=== PATIENT | male | born 1950 | race Caucasian/White ===

== ENCOUNTER → 2018-03-21 13:28 | Outpatient (CLI) | payer MEDICARE, SELFPAY ==
[2018-03-21 15:56] LABS: Absolute Lymphocyte Count 0.84 X10^3/ul (0.83-4.51); Absolute Neutrophil Count 3.1 X10^3/uL (2.0-7.7); Basophil# 0.02 X10^3/uL; Basophil% 0.4 % (0-1); Eosinophils% 2.2 % (0-5); Hematocrit 43.4 % (40-54); Hemoglobin 14.3 g/dl (13.0-16.5); Lymphocyte # 0.84 X10^3/ul (4.0); Lymphocyte % 18.3 % (19-41); Mean Corp Hgb Conc 32.9 g/gl (32-36); Mean Corpuscular Hgb 31.2 pg (27.0-32.0); Mean Corpuscular Volume 94.6 fL (80-94); Monocyte# 0.51 X10^3/uL; Monocyte% 11.1 % (0-10); Neutrophil # 3.11 X10^3/uL (2.7-7.7); Neutrophil % 67.8 % (47-70); Platelet Count 253 K/mm3 (150-450); RBC Distribution Width SD 44.9 fl (35.1-43.9); Red Blood Count 4.59 M/mm3 (4.6-6.2); White Blood Count 4.6 K/mm3 (4.4-11.0)
[2018-03-21 16:01] LABS: POSITIVE COUNT NO; POSITIVE DIFFERENTIAL NO; POSITIVE MORPHOLOGY NO
[2018-03-21 16:15] LABS: AST(SGOT) 27 U/L (15-37); Alanine Aminotransfer ALT/SGPT 29 U/L (16-61); Albumin, Serum 3.7 g/dL (3.2-5.0); Alkaline Phosphatase 78 U/L (45-117); Bilirubin, Direct 0.12 mg/dL (0.00-0.30); Protein, Total 7.7 g/dL (6.4-8.2)
[2018-03-21 16:58] LABS: HIV - WCH Non-Reactive (Nonreactive)
[2018-03-28 03:06] LABS: HEPATITIS B SURFACE AG Negative (Negative); QNTFERON TB Ag Minus Nil Value 0.03 IU/mL (.); QNTFERON TB Mitogen Value > 10.00 IU/mL (.); QNTFERON TB Nil Value 0.07 IU/mL (.)
[2018-03-28 11:34] LABS: Hep B Surface Antibodies Non Reactive (.); Hep C Antibodies 0.2 s/co ratio (0.0-0.9); Hepatitis B Core AB IgM Negative (Negative); QNTIFERON TB Gold Negative (Negative)
== END ==
PROVIDERS: Family Provider Family Medicine; PCP Family Medicine; Visit Provider Dermatology
DX: Z79.899 Other long term (current) drug therapy (principal)
CPT/HCPCS: 36415; 80076; 85025; 86480; 86703; 86705; 86706; 86803; 87340

== ENCOUNTER 2020-05-30 12:30 | Outpatient (RCR) | payer MEDICARE, SELFPAY ==
--- NOTE | 2020-04-04 11:11 | HP.PTEVAL_ITS ---
Patient's Visit Information IBIS RANGEL is a 70 year old M referred to Physical Therapy by Dr. Tenzin Fleming DO with a diagnosis of vertigo. Date of Evaluation: 04/04/20 Physical Therapist: Tobi Styles DPT, OCS, CSCS - Visit Plan Frequency: 1x/Week Duration: 2-4 Weeks Plan: Pt without signs and symptoms of vertigo today. Will get back to normal actiivity and f/u one time next week for positional treatment if needed or d/c if doing well. - Subjective I sleep on left side and get out of bed rolling onto left side Saturday morning and spun bad out of nowhere. Could not get out of bed, had to lie flat on back. 10 minutes later, helped him up slowly and did OK. Slowly improved. 75% better now. Afraid to bend over and afraid to roll at night. Not doing those things. No spinning over weekend. Still feels a little goofy but not afraid to walk around right now. Sleeping OK. Called doctor and got prescription for therapy. Saw doctor adn checked vitals which were good. 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 - Objective Walks normal today, teps reciprocal without rail. Chair trasnfers I without UE. Cervical AROM WFL adn painfree. Balance is good. Oculomotor is unremarkable: no nystagmus with gaze or head shake. - skew eye deivation. - ocular tilt. - head thrust. no porblem with pursuit or saccades. VOR is normal and asymptomatic. MSQ positions are all normal. - B hallpike charline. - - roll test. - Balance Scores Functional Gait Assessment Score: 30 % Disability: 0 CATSIB Score (Max score 120 seconds): 120 - Goals Goal 1:: abolish vertigo for one week with normal bed transfers Goal Time Frame: 2-4 Weeks Goal 2:: Pt feel 100% back to nomral activity Goal Time Frame: 2-4 Weeks - Rehabilitation Potential Physical Therapy Diagnosis: vertigo and fear avoidance Rehabilitation Potential: Fair - Anticipated Interventions Patient/Client Instruction: Educate patient on: Condition, Plan of Care For the Purpose of:: To increase tolerance to activity/condition/position Comment: positional treatments and habituation as needed. For the Purpose of:: To increase tolerance to activity/condition/position Thank you for the opportunity to evaluate your patient. For Medicare and Medicare HMO plans, please review the plan of care and approve it. It will need to be FAXED BACK to us at [phone] for Medicare purposes. For Medicare only, by signing this I certify the plan of care. Please let me know if there are questions or concerns regarding this plan of care. Physician Signature: Date:
--- NOTE | 2020-05-12 12:23 | HP.PTREVAL ---
Dr. Tenzin Fleming, DO, It has been my pleasure to treat IBIS RANGEL over the last 3 visits for vertigo. Please see the progress note below for an update on the physical therapy plan of care! Subjective: Never stared exercises. Been feeling pretty good for the last month. Woke up this morning on right side and was not feeling great, slowly got up and went to bathroom and got dizzy looking down. Not feeling right this morning. did work at [employer] this am and bent over and felt like he could not look down or he would get dizzy/unsteady. Objective/Function: Pt walks I in and out of PT today. - R hallpike charline. + L hallpike charline for up torsional nystagmus x 12 seconds. Better after initial Margaert adn treated again. Pt was good for a month and missed his last appointment as he misscheduled it in his book. He was not having a problem until this morning. Plan Plan: check next week and weekly as needed until feeling good. Goals still appropriate and fair prognosis Goals Goal 1:: abolish vertigo for one week with normal bed transfers Goal Time Frame: 2-4 Weeks Goal Progress: approp Goal 2:: Pt feel 100% back to nomral activity Goal Time Frame: 2-4 Weeks Goal Progress: approp Anticipated Interventions Patient/Client Instruction: Educate patient on: Condition, Plan of Care For the Purpose of:: To increase tolerance to activity/condition/position Comment: positional treatments and habituation as needed. For the Purpose of:: To increase tolerance to activity/condition/position Please do not hesitate to contact me at [phone] by phone or if you have questions or concerns regarding this new plan of care! Sincerely, Tobi Styles, DPT, OCS, CSCS
--- NOTE | 2020-05-19 16:27 | HP.PTREVAL ---
Dr. Tenzin Fleming, DO, It has been my pleasure to treat IBIS RANGEL over the last 4 visits for vertigo. Please see the progress note below for an update on the physical therapy plan of care! Subjective: [place] better the next day. Slept in chair for three nights. Slept on R side one time then left side. Got dizzy one time. Currently he is still gaurded in what he does and emotions. Slept in bed on R side last couple nights. OK if he avoids left side. Last dizzy was Saturday scratching head on toilet for a few moments. Just does not feel right with looking down a lot of times. Objective/Function: - R adn L HD today, - roll test, no symptoms today with R sidelie or L sidelie. Oculmotor is unremarkable with no nystagmus, - skew eye dev, - ocular tilt, - head thrust, normal pursuit and saccades and VOR withotu symptoms today. Goals appropriate and questionable prognosis but appropriate to continue another visit. Plan Plan: f/u next week to monitor BD exercises effectiveness and need for positional vs D/C Goals Goal 1:: abolish vertigo for one week with normal bed transfers Goal Time Frame: 2-4 Weeks Goal Progress: trasnfers but not abolish Goal 2:: Pt feel 100% back to nomral activity Goal Time Frame: 2-4 Weeks Goal Progress: 70% Anticipated Interventions Patient/Client Instruction: Educate patient on: Condition, Plan of Care For the Purpose of:: To increase tolerance to activity/condition/position Comment: positional treatments and habituation as needed. For the Purpose of:: To increase tolerance to activity/condition/position Please do not hesitate to contact me at [phone] by phone or if you have questions or concerns regarding this new plan of care! Sincerely, Tobi Styles, DPT, OCS, CSCS
--- NOTE | 2020-07-26 18:34 | HP.PT.NRP ---
IBIS RANGEL was seen in my office for initial evaluation on 04/04/20. The following Plan of Care was established for this patient: Initial Frequency: 1x/Week Initial Duration: 2-4 Weeks Patient/Client Instruction: Educate patient on: Condition, Plan of Care For the Purpose of:: To increase tolerance to activity/condition/position For the Purpose of:: To increase tolerance to activity/condition/position This patient was last seen in our office 05/30/20. Pertinent comments regarding their Physical therapy will appear below: Pt seen 6 visits for progression of vestibular ex. He cancelled his last visit as he was doing well and did not reschedule. aT this point, it has been nearly two months and I will discontinue due to nonattendance. At this point I will be discontinuing this patient from physical therapy. I would be happy to see this patient again in the future if found appropriate by the physician. Thank you! Tobi Styles, DPT, OCS, CSCS
== END 2020-05-30 19:00 | disposition home or self-care (01) ==
LOC: PT 12:30
PROVIDERS: PCP Family Medicine; Referring Provider Family Medicine; Visit Provider Family Medicine
DX: R42 Dizziness and giddiness (principal)
CPT/HCPCS: 97162; 97530

== ENCOUNTER → 2021-03-24 12:58 | Outpatient (CLI) | payer MEDICARE, SELFPAY ==
[2021-03-24 15:36] LABS: Absolute Lymphocyte Count 1.23 X10^3/uL (0.83-4.51); Absolute Neutrophil Count 3.3 X10^3/uL (2.0-7.7); Basophil# 0.04 X10^3/uL; Basophil% 0.7 % (0-1); Eosinophil# 0.22 X10^3/uL; Eosinophils% 4.1 % (0-5); Hematocrit 43.9 % (40-54); Hemoglobin 14.6 g/dL (13.0-16.5); Lymphocyte # 1.23 X10^3/ul (0.83-4.51); Lymphocyte % 22.8 % (19-41); Mean Corp Hgb Conc 33.3 g/dL (32-36); Mean Corpuscular Hgb 31.1 pg (27.0-32.0); Mean Corpuscular Volume 93.6 fL (80-94); Mean Platelet Vol. 10.1 fl (6.2-12.0); Monocyte# 0.54 X10^3/uL; NRBC Flagged by Analyzer 0 % (0-5); Neutrophil # 3.34 X10^3/uL (2.7-7.7); Neutrophil % 61.8 % (47-70); Platelet Count 291 K/mm3 (150-450); RBC Distribution Width CV 12.6 % (11.6-14.6); RBC Distribution Width SD 43.5 fl (35.1-43.9); Red Blood Count 4.69 M/mm3 (4.6-6.2); White Blood Count 5.4 K/mm3 (4.4-11.0)
[2021-03-24 15:45] LABS: AST(SGOT) 33 U/L (15-37); Alanine Aminotransfer ALT/SGPT 39 U/L (16-61); Albumin, Serum 3.7 g/dL (3.2-5.0); Alkaline Phosphatase 73 U/L (45-117); Bilirubin, Direct 0.11 mg/dL (0.00-0.30); Globulin 3.8 g/dL (2.2-4.2); Protein, Total 7.5 g/dL (6.4-8.2)
[2021-03-29 03:07] LABS: QNTFERON TB Mitogen Value > 10.00 IU/mL (.); QNTFERON TB Nil Value 0.11 IU/mL (.); QNTFERON TB1+ Ag Value 0.17 IU/mL (.); QNTFERON TB2+ Ag Value 0.12 IU/mL (.)
[2021-03-29 10:08] LABS: QNTIFERON TB Positive Criteria Negative (Negative)
== END ==
LOC: LAB 13:04 → MTLAB 13:14
PROVIDERS: PCP Family Medicine; Referring Provider Dermatology; Visit Provider Dermatology
DX: L40.59 Other psoriatic arthropathy (principal); L40.8 Other psoriasis; Z79.899 Other long term (current) drug therapy
CPT/HCPCS: 36415; 80076; 85025; 86480

== ENCOUNTER → 2021-12-08 | Outpatient (CLI) | payer MEDICARE, SELFPAY ==
[2021-12-08 11:52] LABS: Bacteria 0 SEEN /hpf (None Seen); Mucous, Urine 0 SEEN /hpf (<or=2+); Red Blood Cells-Urine 0 SEEN /hpf (0-5); Squamous Epithelial Cells - UA 0 SEEN /hpf (0-5)
[2021-12-08 15:14] LABS: Absolute Lymphocyte Count 1.09 X10^3/uL (0.83-4.51); Absolute Neutrophil Count 3.2 X10^3/uL (2.0-7.7); Basophil# 0.03 X10^3/uL; Basophil% 0.6 % (0-1); Eosinophil# 0.15 X10^3/uL; Hematocrit 43.8 % (40-54); Hemoglobin 14.8 g/dL (13.0-16.5); Lymphocyte # 1.09 X10^3/ul (0.83-4.51); Lymphocyte % 21.8 % (19-41); Mean Corp Hgb Conc 33.8 g/dL (32-36); Mean Corpuscular Hgb 31.6 pg (27.0-32.0); Mean Corpuscular Volume 93.6 fL (80-94); Mean Platelet Vol. 10.5 fl (6.2-12.0); NRBC Flagged by Analyzer 0 % (0-5); Neutrophil % 64.2 % (47-70); Platelet Count 243 K/mm3 (150-450); RBC Distribution Width CV 12.1 % (11.6-14.6); RBC Distribution Width SD 41.8 fl (35.1-43.9); Red Blood Count 4.68 M/mm3 (4.6-6.2)
[2021-12-08 15:21] LABS: Color, Urine Yellow (Yellow); Glucose, Dipstick Normal (Normal); Ketone-Dipstick Negative (Negative); Leukocyte Esterase-Dipstick Negative /ul (Negative); Nitrite-Dipstick Negative (Negative); Occult Blood-Urine Negative /ul (Negative); Protein-Dipstick Negative (Negative); Specific Gravity, Urine 1.015 (1.002-1.030); Urine Bilirubin Dipstick Negative (Negative); Urine Clarity Sl. Cloudy (Clear); Urine Urobilinogen Normal (Normal)
[2021-12-08 15:31] LABS: White Blood Cells 0-5 SEEN /hpf (0-5)
[2021-12-08 15:33] LABS: Amorphous Sediment 2+
[2021-12-08 15:35] LABS: AST(SGOT) 29 U/L (15-37); Alanine Aminotransfer ALT/SGPT 35 U/L (16-61); Albumin, Serum 3.8 g/dL (3.2-5.0); Alkaline Phosphatase 67 U/L (45-117); Anion Gap 6 (5-15); BUN 26 mg/dL (7-18); BUN/Creat Ratio 23.2 RATIO (10-20); Calcium,Total 9.2 mg/dL (8.5-10.1); Chloride 104 mmol/L (98-107); Cholesterol 197 mg/dL (200); Creatinine, Serum 1.12 mg/dL (0.70-1.30); EST Glomerular Filtration Rate 69 mL/min (>60); Est Glom Filt Rate - Afr Amer 83 mL/min (>60); Globulin 3.9 g/dL (2.2-4.2); Glucose 94 mg/dL (74-106); High Density Lipoprotein 33 mg/dL; PSA,Total - Annual Screen 2.23 ng/mL (0.00-4.00); Potassium 3.8 mmol/L (3.5-5.1); Protein, Total 7.7 g/dL (6.4-8.2); Sodium Level 138 mmol/L (136-145); T4 Free Direct 1.03 ng/dL (0.76-1.46); Thyroid Stim Hormone (TSH) 1.79 uIU/mL (0.358-3.74); Triglycerides 356 mg/dL; Very Low Density Lipoprotein 71 mg/dL (5-40)
== END | disposition home or self-care (01) ==
LOC: MFPLAB 11:46
PROVIDERS: PCP Family Medicine; Referring Provider Family Medicine; Visit Provider Family Medicine
DX: I10 Essential (primary) hypertension (principal); E55.9 Vitamin D deficiency, unspecified; E04.1 Nontoxic single thyroid nodule; N40.1 Benign prostatic hyperplasia with lower urinary tract symptoms
CPT/HCPCS: 36415; 80053; 80061; 81001; 82306; 84153; 84439; 84443; 85025; G0103

== ENCOUNTER → 2022-01-22 | Outpatient (CLI) | payer MEDICARE, SELFPAY ==
--- NOTE | 2022-01-22 16:50 | US_ITS ---
STUDY: THYROID ULTRASOUND REASON FOR EXAM: Male, 71 years old. THYROID NODULE TECHNIQUE: Ultrasound evaluation of the thyroid was performed with real-time and static hoyos-scale imaging. COMPARISON: None. FINDINGS: RIGHT LOBE: The right lobe of the thyroid gland measures 3.6 x 1.3 cm. There is a homogeneous echotexture. There are no demonstrated solid, cystic or complex lesions. LEFT LOBE: The left lobe of the thyroid gland measures 4 x 1.7 cm. There is a homogeneous echotexture. There are no demonstrated solid, cystic or complex lesions. ISTHMUS: The isthmus measures 3.7 mm. US/Thyroid IMPRESSION: There are no acute findings on this ultrasound examination of the thyroid. Electronically Signed: Lalo Penn MD at 18:34 EDT ,
== END | disposition home or self-care (01) ==
LOC: US 16:48
PROVIDERS: PCP Family Medicine; Referring Provider Family Medicine; Visit Provider Family Medicine
DX: E04.1 Nontoxic single thyroid nodule (principal)
CPT/HCPCS: 76536

== ENCOUNTER → 2022-06-13 | Outpatient (CLI) | payer MEDICARE, SELFPAY | END | disposition home or self-care (01) | LOC: MFPLAB 11:44 | PROVIDERS: PCP Family Medicine; Referring Provider Family Medicine; Visit Provider Family Medicine | DX: E29.1 Testicular hypofunction (principal) | CPT/HCPCS: 36415; 84403 ==

== ENCOUNTER 2022-07-11 09:42 | Outpatient (CLI) | payer MEDICARE, SELFPAY ==
[2022-07-11 10:54] LABS: Bacteria 0 SEEN /hpf (None Seen); Mucous, Urine 0 SEEN /hpf (<or=2+); Red Blood Cells-Urine 0 SEEN /hpf (0-5); Squamous Epithelial Cells - UA 0 SEEN /hpf (0-5); White Blood Cells 0 SEEN /hpf (0-5)
[2022-07-11 12:34] LABS: Absolute Lymphocyte Count 0.78 X10^3/uL (0.83-4.51); Absolute Neutrophil Count 3.6 X10^3/uL (2.0-7.7); Basophil# 0.03 X10^3/uL; Basophil% 0.6 % (0-1); Eosinophil# 0.06 X10^3/uL; Eosinophils% 1.2 % (0-5); Hematocrit 43.3 % (40-54); Hemoglobin 14.7 g/dL (13.0-16.5); Lymphocyte # 0.78 X10^3/ul (0.83-4.51); Lymphocyte % 15.2 % (19-41); Mean Corp Hgb Conc 33.9 g/dL (32-36); Mean Corpuscular Volume 94.1 fL (80-94); Monocyte# 0.68 X10^3/uL; Monocyte% 13.2 % (0-10); NRBC Flagged by Analyzer 0 % (0-5); Neutrophil # 3.58 X10^3/uL (2.7-7.7); Neutrophil % 69.6 % (47-70); Platelet Count 221 K/mm3 (150-450); RBC Distribution Width CV 13.1 % (11.6-14.6); RBC Distribution Width SD 45.3 fl (35.1-43.9); White Blood Count 5.1 K/mm3 (4.4-11.0)
[2022-07-11 12:37] LABS: Color, Urine Yellow (Yellow); Glucose, Dipstick Normal (Normal); Ketone-Dipstick Negative (Negative); Leukocyte Esterase-Dipstick Negative /ul (Negative); Nitrite-Dipstick Negative (Negative); Occult Blood-Urine Negative /ul (Negative); Protein-Dipstick Negative (Negative); Urine Bilirubin Dipstick Negative (Negative); Urine Clarity Clear (Clear); Urine Urobilinogen Normal (Normal)
[2022-07-11 13:00] LABS: Vitamin D,25 Hydroxy 28.3 ng/mL
[2022-07-11 13:33] LABS: AST(SGOT) 26 U/L (15-37); Alanine Aminotransfer ALT/SGPT 28 U/L (16-61); Albumin, Serum 3.9 g/dL (3.2-5.0); Alkaline Phosphatase 76 U/L (45-117); Anion Gap 7 (5-15); BUN 21 mg/dL (7-18); BUN/Creat Ratio 19.1 RATIO (10-20); Calcium,Total 9.2 mg/dL (8.5-10.1); Chloride 102 mmol/L (98-107); Cholesterol 235 mg/dL (200); EST Glomerular Filtration Rate 70 mL/min (>60); Est Glom Filt Rate - Afr Amer 85 mL/min (>60); Globulin 3.8 g/dL (2.2-4.2); Glucose 101 mg/dL (74-106); High Density Lipoprotein 44 mg/dL; Potassium 4.1 mmol/L (3.5-5.1); Protein, Total 7.7 g/dL (6.4-8.2); Sodium Level 138 mmol/L (136-145); Thyroid Stim Hormone (TSH) 1.29 uIU/mL (0.358-3.74); Triglycerides 193 mg/dL; Very Low Density Lipoprotein 39 mg/dL (5-40)
== END 2022-07-11 23:59 | disposition home or self-care (01) ==
LOC: MFPLAB 09:43
PROVIDERS: PCP Family Medicine; Visit Provider Family Medicine
DX: I10 Essential (primary) hypertension (principal); E55.9 Vitamin D deficiency, unspecified
CPT/HCPCS: 36415; 80053; 80061; 81001; 82306; 84443; 85025

== ENCOUNTER 2022-11-27 10:00 | Outpatient (RCR) | payer MEDICARE, SELFPAY ==
--- NOTE | 2022-09-18 12:46 | HP.PTEVAL ---
Patient's Visit Information IBIS RANGEL is a 72 year old M referred to Physical Therapy by Dr. Ting Lewis MD with a diagnosis of vertigo. Date of Evaluation: 09/18/22 Physical Therapist: CORINE Dowd - Visit Plan Frequency: 1-2x /Week Duration: 3 Weeks Plan: Re check R Hallpike and possibly L next visit - Subjective Pt had vertigo 4-5 years ago and had PT and he got out of it. He sleeps on R side of the bed and sleeps on the R side. Some morning he rolled to his L side and he fell BW on the bed. 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 He got back from [place] last night. He rolled onto his back and feet up in the air and got dizzy again. They did the manuver off the bed with his head to the right and it kind of helped and he is still not right in the head. Matute the plane tipped he got a little dizzy. He got up slow and felt maybe a little bit. He has not been brave enough to roll onto his L side. He is a little queezy sitting up from R sidelying. IT takes him 1-3 hours now in the morning until he feels ok in the morning. No MO. He has had ringing in his ear for 15 years. - Objective R Hallpike + for upward torsional nystagmus that lasted about 25 seconds. Went ahead and treated with the R Eply. Retested R Hallpike and was negative for dizziness and nystagmus. Pt opted to not test the L side today. Pt walked out and felt much better. - Balance/Special Test Scores Dizziness Score: 16 - Goals Goal 1:: I HEP Goal Time Frame: 2-4 Weeks Goal 2:: Abolish dizziness when rolling over in bed and going back flat on his back in bed Goal Time Frame: 2-4 Weeks - Rehabilitation Potential Rehabilitation Potential: Good - Anticipated Interventions Patient/Client Instruction: Educate patient on: Condition, Plan of Care For the Purpose of:: To improve muscle performance and motor function, To improve ability to perform ADL's, To increase tolerance to activity/condition/position, To improve performance and independence with ADL's, To decrease level of supervision to perform tasks, To improve ability of physical actions for home/community/work/leisure, To improve balance, To improve safety with gait Therapeutic Exercise to Include: Balance training, Postural training, Gait and locomotor training, Neuromotor development For the Purpose of:: To improve ability of physical actions for home/community/work/leisure, To improve gait and locomotor functions, To improve balance Functional Training to Include: Gait training For the Purpose of:: To improve gait and locomotor functions Manual Therapy Techniques to Include: Other For the Purpose of:: To improve performance and independence with ADL's, To decrease level of supervision to perform tasks Thank you for the opportunity to evaluate your patient. For Medicare and Medicare HMO plans, please review the plan of care and approve it. It will need to be FAXED BACK to us at [phone] for Medicare purposes. For Medicare only, by signing this I certify the plan of care. Please let me know if there are questions or concerns regarding this plan of care. Physician Signature: Date:
--- NOTE | 2022-09-25 07:29 | HP.PTDCSUM ---
It has been my pleasure to treat IBIS RANGEL referred by Dr. Ting Lewis MD, with the diagnosis of vertigo for a total of 3 visit(s). Discharge Date: 09/25/22 Please see the following information for a summary of their discharge status. Subjective: Pt feels pretty good now but wants to make sure it is gone. He might be apprehension % Improvement: 100 Objective/Function: R Hallpike was negative. Repeated it 3X and was negative all 3 times for dizziness and nystagmus. Pt was able to walk with horizontal head turns without any dizziness Goal 1:: I HEP Goal Progress: Goal Met Goal 2:: Abolish dizziness when rolling over in bed and going back flat on his back in bed Goal Progress: Goal Met Plan: Pt will call his Dr if his sx return. Discharge Comments: DC PT to HEP If there are questions or concerns regarding this patient's physical therapy, please feel free to call me at [phone]. Thank you for the referral of this patient. Sincerely, Zoe Winkler, MPT Balance/Gait/Functional tests - Balance/Special Test Scores Dizziness Score: 2
== END 2022-11-27 19:00 | disposition home or self-care (01) ==
LOC: PT 10:00
PROVIDERS: PCP Family Medicine; Referring Provider Family Medicine; Visit Provider Family Medicine
DX: R42 Dizziness and giddiness (principal)
CPT/HCPCS: 97110; 97161

== ENCOUNTER → 2022-12-18 | Outpatient (CLI) | payer MEDICARE, SELFPAY ==
[2022-12-18 10:01] LABS: Bacteria 0 SEEN /hpf (None Seen); Mucous, Urine 0 SEEN /hpf (<or=2+); Red Blood Cells-Urine 0 SEEN /hpf (0-5); White Blood Cells 0 SEEN /hpf (0-5)
[2022-12-18 12:32] LABS: Absolute Lymphocyte Count 1.12 X10^3/uL (0.83-4.51); Absolute Neutrophil Count 3.1 X10^3/uL (2.0-7.7); Basophil# 0.04 X10^3/uL; Basophil% 0.8 % (0-1); Eosinophils% 4.1 % (0-5); Hematocrit 42.9 % (40-54); Hemoglobin 14.3 g/dL (13.0-16.5); Lymphocyte # 1.12 X10^3/ul (0.83-4.51); Lymphocyte % 22.8 % (19-41); Mean Corp Hgb Conc 33.3 g/dL (32-36); Mean Corpuscular Hgb 31.6 pg (27.0-32.0); Mean Corpuscular Volume 94.9 fL (80-94); Monocyte# 0.46 X10^3/uL; Monocyte% 9.4 % (0-10); NRBC Flagged by Analyzer 0 % (0-5); Neutrophil # 3.08 X10^3/uL (2.7-7.7); Neutrophil % 62.7 % (47-70); Platelet Count 254 K/mm3 (150-450); RBC Distribution Width CV 12.5 % (11.6-14.6); Red Blood Count 4.52 M/mm3 (4.6-6.2); White Blood Count 4.9 K/mm3 (4.4-11.0)
[2022-12-18 12:36] LABS: Color, Urine Yellow (Yellow); Glucose, Dipstick Normal (Normal); Ketone-Dipstick Negative (Negative); Leukocyte Esterase-Dipstick Negative /ul (Negative); Nitrite-Dipstick Negative (Negative); Occult Blood-Urine Negative /ul (Negative); Protein-Dipstick Negative (Negative); Urine Bilirubin Dipstick Negative (Negative); Urine Clarity Sl. Cloudy (Clear); Urine Urobilinogen Normal (Normal)
[2022-12-18 12:48] LABS: Squamous Epithelial Cells - UA 0-5 SEEN /hpf (0-5)
[2022-12-18 12:57] LABS: Vitamin D,25 Hydroxy 47.2 ng/mL
[2022-12-18 13:13] LABS: AST(SGOT) 30 U/L (15-37); Alanine Aminotransfer ALT/SGPT 38 U/L (16-61); Albumin, Serum 3.7 g/dL (3.2-5.0); Alkaline Phosphatase 60 U/L (45-117); Anion Gap 7 (5-15); BUN 22 mg/dL (7-18); BUN/Creat Ratio 19.8 RATIO (10-20); Calcium,Total 9.4 mg/dL (8.5-10.1); Chloride 107 mmol/L (98-107); Cholesterol 129 mg/dL (200); Creatinine, Serum 1.11 mg/dL (0.70-1.30); EST Glomerular Filtration Rate 69 mL/min (>60); Est Glom Filt Rate - Afr Amer 84 mL/min (>60); Globulin 3.7 g/dL (2.2-4.2); Glucose 98 mg/dL (74-106); High Density Lipoprotein 48 mg/dL; Potassium 3.8 mmol/L (3.5-5.1); Protein, Total 7.4 g/dL (6.4-8.2); Sodium Level 139 mmol/L (136-145); Triglycerides 132 mg/dL; Very Low Density Lipoprotein 26 mg/dL (5-40)
== END | disposition home or self-care (01) ==
LOC: MFPLAB 09:57
PROVIDERS: PCP Family Medicine; Visit Provider Family Medicine
DX: I10 Essential (primary) hypertension (principal); N40.1 Benign prostatic hyperplasia with lower urinary tract symptoms; Z12.5 Encounter for screening for malignant neoplasm of prostate; E55.9 Vitamin D deficiency, unspecified
CPT/HCPCS: 36415; 80053; 80061; 81001; 82306; 84153; 85025; G0103

== ENCOUNTER → 2023-07-09 | Outpatient (CLI) | payer MEDICARE, SELFPAY ==
[2023-07-11 11:08] LABS: QNTFERON TB Mitogen Value > 10.00 IU/mL (.); QNTFERON TB Nil Value 0.06 IU/mL (.); QNTFERON TB1+ Ag Value 0.07 IU/mL (.); QNTFERON TB2+ Ag Value 0.07 IU/mL (.); QNTIFERON TB Positive Criteria Negative (Negative)
== END | disposition home or self-care (01) ==
LOC: MTLAB 12:35
PROVIDERS: PCP Family Medicine; Referring Provider Dermatology; Visit Provider Dermatology
DX: Z79.899 Other long term (current) drug therapy (principal)
CPT/HCPCS: 36415; 86480

== ENCOUNTER → 2023-07-26 | Outpatient (CLI) | payer MEDICARE, SELFPAY ==
--- NOTE | 2023-07-26 16:20 | RAD_ITS ---
INDICATION: PAIN EXAMINATION/TECHNIQUE: X-RAY - RIGHT XR Knee 3 Views COMPARISON: FINDINGS: SOFT TISSUES: No soft tissue swelling or gas. No radiopaque foreign body. Trace suprapatellar effusion. BONES/JOINTS: No acute fracture or subluxation.. Mild degenerative spurring. Narrowing of the patellofemoral compartment .. No sclerotic or destructive changes observed. RAD/Knee 3 Views IMPRESSION: Degenerative changes and trace effusion.. Electronically Signed: Bruce Haas DO at 16:30 EST ,
--- NOTE | 2023-07-26 16:20 | RAD_ITS ---
INDICATION: PAIN EXAMINATION/TECHNIQUE: X-RAY - LEFT XR Knee 3 Views COMPARISON: FINDINGS: SOFT TISSUES: No soft tissue swelling or gas. No radiopaque foreign body. Mild suprapatellar effusion. BONES/JOINTS: No acute fracture or subluxation.. Degenerative spurring. Narrowing of the medial femorotibial compartment. No sclerotic or destructive changes observed. RAD/Knee 3 Views IMPRESSION: Degenerative changes and mild effusion. Electronically Signed: Bruce Haas DO at 16:31 EST ,
[2023-07-26 17:38] LABS: Absolute Lymphocyte Count 1.48 X10^3/uL (0.83-4.51); Absolute Neutrophil Count 3.6 X10^3/uL (2.0-7.7); Basophil# 0.04 X10^3/uL; Basophil% 0.7 % (0-1); Eosinophil# 0.17 X10^3/uL; Eosinophils% 2.9 % (0-5); Hemoglobin 14.2 g/dL (13.0-16.5); Lymphocyte # 1.48 X10^3/ul (0.83-4.51); Lymphocyte % 25.1 % (19-41); Mean Corp Hgb Conc 33.8 g/dL (32-36); Mean Corpuscular Volume 91.7 fL (80-94); Mean Platelet Vol. 9.7 fl (6.2-12.0); Monocyte# 0.61 X10^3/uL; Monocyte% 10.4 % (0-10); NRBC Flagged by Analyzer 0 % (0-5); Neutrophil # 3.58 X10^3/uL (2.7-7.7); Neutrophil % 60.7 % (47-70); Platelet Count 238 K/mm3 (150-450); RBC Distribution Width CV 12.6 % (11.6-14.6); RBC Distribution Width SD 42.3 fl (35.1-43.9); Red Blood Count 4.58 M/mm3 (4.6-6.2); White Blood Count 5.9 K/mm3 (4.4-11.0)
[2023-07-26 17:38] LABS: Color, Urine Yellow (Yellow); Glucose, Dipstick Normal (Normal); Ketone-Dipstick Negative (Negative); Leukocyte Esterase-Dipstick Negative /ul (Negative); Nitrite-Dipstick Negative (Negative); Occult Blood-Urine Negative /ul (Negative); Protein-Dipstick Negative (Negative); Specific Gravity, Urine 1.015 (1.002-1.030); Urine Bilirubin Dipstick Negative (Negative); Urine Clarity Clear (Clear); Urine Urobilinogen Normal (Normal)
[2023-07-26 18:24] LABS: Vitamin D,25 Hydroxy 33.2 ng/mL
[2023-07-26 18:42] LABS: ALB/GLOB Ratio 0.9 RATIO (0.9-2.4); AST(SGOT) 24 U/L (15-37); Alanine Aminotransfer ALT/SGPT 33 U/L (16-61); Albumin, Serum 3.7 g/dL (3.2-5.0); Alkaline Phosphatase 74 U/L (45-117); Anion Gap 2 (5-15); BUN 20 mg/dL (7-18); Calcium,Total 9.9 mg/dL (8.5-10.1); Chloride 106 mmol/L (98-107); Cholesterol 159 mg/dL (200); Creatinine, Serum 1.11 mg/dL (0.70-1.30); EST Glomerular Filtration Rate 69 mL/min (>60); Est Glom Filt Rate - Afr Amer 84 mL/min (>60); Globulin 4.1 g/dL (2.2-4.2); Glucose 98 mg/dL (74-106); High Density Lipoprotein 51 mg/dL; Potassium 3.6 mmol/L (3.5-5.1); Protein, Total 7.8 g/dL (6.4-8.2); Sodium Level 139 mmol/L (136-145); Thyroid Stim Hormone (TSH) 2.44 uIU/mL (0.358-3.74); Triglycerides 167 mg/dL; Very Low Density Lipoprotein 33 mg/dL (5-40)
== END | disposition home or self-care (01) ==
LOC: MTRAD 16:11
PROVIDERS: PCP Family Medicine; Referring Provider Family Medicine; Visit Provider Family Medicine
DX: M25.569 Pain in unspecified knee (principal); I10 Essential (primary) hypertension; E55.9 Vitamin D deficiency, unspecified
CPT/HCPCS: 36415; 73562; 80053; 80061; 81002; 82306; 84443; 85025

== ENCOUNTER → 2023-12-20 | Outpatient (CLI) | payer MEDICARE, SELFPAY ==
--- NOTE | 2023-12-20 12:34 | RAD_ITS ---
INDICATION: ACUTE BRONCHITIS EXAMINATION/TECHNIQUE: X-RAY - XR Chest 2 Views COMPARISON: No relevant prior comparison study available FINDINGS: LINES/DEVICES: None. LUNGS: No consolidation, edema or effusion. No pneumothorax. MEDIASTINUM AND CARDIOVASCULAR STRUCTURES: Cardiac silhouette not enlarged. Central airways and mediastinal contour are unremarkable. BONES AND SOFT TISSUES: Degenerative changes of the thoracic spine. RAD/Chest PA and Lateral IMPRESSION: No radiographic evidence of acute cardiopulmonary disease. Electronically Signed: Jon Arthur MD at 13:17 EDT ,
== END | disposition home or self-care (01) ==
LOC: MTRAD 12:32
PROVIDERS: PCP Family Medicine; Referring Provider Family Medicine; Visit Provider Family Medicine
DX: J20.9 Acute bronchitis, unspecified (principal)
CPT/HCPCS: 71046

== ENCOUNTER → 2024-01-23 | Outpatient (CLI) | payer MEDICARE, SELFPAY ==
[2024-01-23 14:24] LABS: Mucous, Urine 0 SEEN /hpf (<or=2+); Red Blood Cells-Urine 0 SEEN /hpf (0-5); Squamous Epithelial Cells - UA 0 SEEN /hpf (0-5); White Blood Cells 0 SEEN /hpf (0-5)
[2024-01-23 17:49] LABS: Absolute Lymphocyte Count 1.17 X10^3/uL (0.83-4.51); Absolute Neutrophil Count 3.1 X10^3/uL (2.0-7.7); Basophil# 0.03 X10^3/uL; Basophil% 0.6 % (0-1); Eosinophil# 0.15 X10^3/uL; Eosinophils% 3.1 % (0-5); Hematocrit 40.8 % (40-54); Hemoglobin 13.4 g/dL (13.0-16.5); Lymphocyte # 1.17 X10^3/ul (0.83-4.51); Lymphocyte % 23.9 % (19-41); Mean Corp Hgb Conc 32.8 g/dL (32-36); Mean Corpuscular Hgb 31.1 pg (27.0-32.0); Mean Corpuscular Volume 94.7 fL (80-94); Mean Platelet Vol. 10.6 fl (6.2-12.0); Monocyte% 8.2 % (0-10); NRBC Flagged by Analyzer 0 % (0-5); Neutrophil # 3.13 X10^3/uL (2.7-7.7); Platelet Count 248 K/mm3 (150-450); RBC Distribution Width CV 12.6 % (11.6-14.6); RBC Distribution Width SD 43.6 fl (35.1-43.9); Red Blood Count 4.31 M/mm3 (4.6-6.2); White Blood Count 4.9 K/mm3 (4.4-11.0)
[2024-01-23 18:00] LABS: Color, Urine Yellow (Yellow); Glucose, Dipstick Normal (Normal); Ketone-Dipstick Negative (Negative); Leukocyte Esterase-Dipstick Negative /ul (Negative); Nitrite-Dipstick Negative (Negative); Occult Blood-Urine Negative /ul (Negative); Protein-Dipstick Negative (Negative); Specific Gravity, Urine 1.015 (1.002-1.030); Urine Bilirubin Dipstick Negative (Negative); Urine Clarity Clear (Clear); Urine Urobilinogen Normal (Normal)
[2024-01-23 18:04] LABS: Vitamin D,25 Hydroxy 31.6 ng/mL
[2024-01-23 18:07] LABS: Bacteria 1+ /hpf (None Seen)
[2024-01-23 18:28] LABS: ALB/GLOB Ratio 0.9 RATIO (0.9-2.4); AST(SGOT) 36 U/L (15-37); Alanine Aminotransfer ALT/SGPT 40 U/L (16-61); Albumin, Serum 3.6 g/dL (3.2-5.0); Alkaline Phosphatase 67 U/L (45-117); Anion Gap 7 (5-15); BUN 29 mg/dL (7-18); BUN/Creat Ratio 28.7 RATIO (10-20); Calcium,Total 9.1 mg/dL (8.5-10.1); Chloride 108 mmol/L (98-107); Cholesterol 121 mg/dL (200); Creatinine, Serum 1.01 mg/dL (0.70-1.30); EST Glomerular Filtration Rate 77 mL/min (>60); Est Glom Filt Rate - Afr Amer 93 mL/min (>60); Globulin 3.8 g/dL (2.2-4.2); Glucose 114 mg/dL (74-106); High Density Lipoprotein 36 mg/dL; PSA,Total - Annual Screen 2.42 ng/mL (0.00-4.00); Potassium 3.4 mmol/L (3.5-5.1); Protein, Total 7.4 g/dL (6.4-8.2); Sodium Level 141 mmol/L (136-145); Triglycerides 267 mg/dL; Very Low Density Lipoprotein 53 mg/dL (5-40)
== END | disposition home or self-care (01) ==
LOC: MFPLAB 14:19
PROVIDERS: PCP Family Medicine; Visit Provider Family Medicine
DX: E55.9 Vitamin D deficiency, unspecified (principal); I10 Essential (primary) hypertension; Z12.5 Encounter for screening for malignant neoplasm of prostate
CPT/HCPCS: 36415; 80053; 80061; 81001; 82306; 84153; 85025; G0103

== ENCOUNTER → 2024-07-21 | Outpatient (CLI) | payer MEDICARE, SELFPAY ==
[2024-07-21 18:01] LABS: Absolute Lymphocyte Count 0.95 X10^3/uL (0.83-4.51); Absolute Neutrophil Count 7.4 X10^3/uL (2.0-7.7); Basophil# 0.04 X10^3/uL; Basophil% 0.4 % (0-1); Eosinophil# 0.13 X10^3/uL; Eosinophils% 1.4 % (0-5); Hematocrit 44.6 % (40-54); Hemoglobin 14.5 g/dL (13.0-16.5); Lymphocyte # 0.95 X10^3/ul (0.83-4.51); Lymphocyte % 10.2 % (19-41); Mean Corp Hgb Conc 32.5 g/dL (32-36); Mean Corpuscular Hgb 30.4 pg (27.0-32.0); Mean Corpuscular Volume 93.5 fL (80-94); Monocyte# 0.73 X10^3/uL; Monocyte% 7.8 % (0-10); NRBC Flagged by Analyzer 0 % (0-5); Neutrophil # 7.44 X10^3/uL (2.7-7.7); Neutrophil % 79.9 % (47-70); Platelet Count 242 K/mm3 (150-450); RBC Distribution Width CV 13.5 % (11.6-14.6); RBC Distribution Width SD 46.3 fl (35.1-43.9); Red Blood Count 4.77 M/mm3 (4.6-6.2); White Blood Count 9.3 K/mm3 (4.4-11.0)
[2024-07-21 18:31] LABS: ALB/GLOB Ratio 0.9 RATIO (0.9-2.4); AST(SGOT) 24 U/L (15-37); Alanine Aminotransfer ALT/SGPT 34 U/L (16-61); Albumin, Serum 3.7 g/dL (3.2-5.0); Alkaline Phosphatase 60 U/L (45-117); Anion Gap 9 (5-15); BUN 21 mg/dL (7-18); BUN/Creat Ratio 22.2 RATIO (10-20); Calcium,Total 10.2 mg/dL (8.5-10.1); Chloride 103 mmol/L (98-107); Cholesterol 140 mg/dL (200); Creatinine, Serum 0.95 mg/dL (0.70-1.30); EST Glomerular Filtration Rate 83 mL/min (>60); Est Glom Filt Rate - Afr Amer 100 mL/min (>60); Glucose 93 mg/dL (74-106); High Density Lipoprotein 59 mg/dL; Magnesium 2.2 mg/dL (1.6-2.6); Potassium 3.5 mmol/L (3.5-5.1); Protein, Total 7.7 g/dL (6.4-8.2); Sodium Level 137 mmol/L (136-145); Triglycerides 84 mg/dL; Very Low Density Lipoprotein 17 mg/dL (5-40)
== END | disposition home or self-care (01) ==
LOC: MFPLAB 14:40
PROVIDERS: PCP Family Medicine; Referring Provider Family Medicine; Visit Provider Family Medicine
DX: I10 Essential (primary) hypertension (principal); E55.9 Vitamin D deficiency, unspecified
CPT/HCPCS: 36415; 80053; 80061; 82306; 83735; 84443; 85025

== ENCOUNTER → 2024-09-01 | Outpatient (CLI) | payer MEDICARE, SELFPAY ==
--- NOTE | 2024-09-01 14:58 | RAD_ITS ---
EXAM: XR CHEST, 2 VIEWS CLINICAL INDICATION: cough TECHNIQUE: Frontal and lateral views of the chest. COMPARISON: 12/21/23. FINDINGS: LUNGS AND PLEURAL SPACES: Ill-defined inferior lingular airspace disease. No pneumothorax. No effusion. HEART: Unremarkable. Cardiac silhouette not enlarged. MEDIASTINUM: Central airways and mediastinal contour are unremarkable. BONES/JOINTS: Degenerative changes of the spine and acromioclavicular joints. No acute fracture. SOFT TISSUES: Unremarkable. RAD/Chest PA and Lateral IMPRESSION: Inferior lingula airspace disease concerning for pneumonia. Electronically Signed: Jayy Myers MD at 16:25 EST ,
== END | disposition home or self-care (01) ==
PROVIDERS: PCP Family Medicine; Referring Provider Physician Assistant; Visit Provider Physician Assistant
DX: R05.9 Cough, unspecified (principal)
CPT/HCPCS: 71046

== ENCOUNTER 2024-09-05 20:23 | Inpatient (IN) | payer MEDICARE, SELFPAY ==
[2024-09-05] VITALS (12 sets, daily range): BP systolic 128–176; BP diastolic 75–100; PULSE 78–104; RESP 18–30; TEMP 36.2–37.1; O2SAT 55–98; BMI 27.6
--- NOTE | 2024-09-05 20:26 | EKG12_ITS ---
Test Reason : SOB Blood Pressure : */* mmHG Vent. Rate : 88 BPM Atrial Rate : 88 BPM P-R Int : 152 ms QRS Dur : 100 ms QT Int : 316 ms P-R-T Axes : 35 -33 18 degrees QTcB Int : 382 ms Sinus rhythm with occasional Premature ventricular complexes Left axis deviation Incomplete right bundle branch block Minimal voltage criteria for LVH, may be normal variant ( R in aVL ) Inferior infarct , age undetermined Abnormal ECG Confirmed by DOT CAMPBELL, EHSAN ([id number]), communications editor ALEJANDRO YANEZ ([id number]) on 09/07/2024 10:51:57 A M Referred By: JULIAN Confirmed By: EHSAN CHRIS MD
[2024-09-05] MEDS: 0.9% Normal Saline (1000mL) 1,000 ML 999 ML IV (20:38)
--- NOTE | 2024-09-05 20:41 | EX.ED.DYSGE1 ---
HPI <JOSE DE JESUS Freeman - Last Filed: 09/05/24 22:01> History of Present Illness Chief Complaint: Shortness of Breath Narrative Narrative: Patient is a 74-year-old male with no significant medical history, history of hyper lipidemia, BPH who presents to the emergency department for hypoxia. Patient per his has been sick for the last 2 weeks. Patient did get seen by urgent care twice. Patient has not been getting better, and today, the notes that he was wearing his CPAP that he wears at nighttime all day. Patient then became very weak, and is here for evaluation. Patient was immediately rushed back to the room secondary to having a pulse oxygenation in the mid 50s. PFSH <JOSE DE JESUS Freeman - Last Filed: 09/05/24 22:01> PFS Medical History no medical history Home Medications ?Medication ?Instructions ?Recorded ?Last Taken ?Type rosuvastatin 10 mg tablet 10 mg PO QHS 08/23/24 Unknown History tamsulosin 0.4 mg capsule 0.8 mg PO QDAY 08/23/24 Unknown History triamterene 75 0.5 tab PO DAILY 08/23/24 Unknown History mg-hydrochlorothiazide 50 mg tablet albuterol sulfate 90 mcg/actuation 2 puff inhalation Q6H PRN 09/01/24 Unknown Rx aerosol inhaler shortness of breath or wheezing #8.5 grams levofloxacin 750 mg tablet 750 mg PO Q24H #10 tabs 09/01/24 Unknown Rx Allergy/AdvReac Type Severity Reaction Status Date / Time Penicillins Allergy Severe Rash Verified 09/01/24 14:49 Sulfa (Sulfonamide Allergy Intermediate Rash Verified 09/01/24 14:49 Antibiotics) (sulfa drugs) Social History Smoking Status: Former smoker ROS <JOSE DE JESUS Freeman - Last Filed: 09/05/24 22:01> ROS ED ROS Narrative Constitutional: Negative for weight loss. Positive fever, chills, weakness Eyes: Negative for vision loss, vision change, double vision ENT: Negative for any sore throat, ear pain, congestion Cardiovascular: Negative for any chest pain, tightness, palpitations Respiratory: Positive for any cough, sputum production, hemoptysis, dyspnea, dyspnea on exertion, orthopnea Gastrointestinal: Negative for any abdominal pain, nausea, vomiting, diarrhea, constipation, blood in stool, blood in vomit : Negative for any urinary frequency, dysuria, retention, blood in urine Muscle skeletal: Negative for any neck pain, back pain. Positive for myalgias Neurological: Negative for any headache, syncope, dizziness Skin: Negative for any rashes, itching, abrasions, lacerations Psychiatric: Negative for any depression, anxiety, stress, suicidal ideation, homicidal ideation Hematologic: Negative for any excessive bruising, easy bleeding EXAM <JOSE DE JESUS Freeman - Last Filed: 09/05/24 22:01> Physical Exam Narrative Exam Narrative: Vital signs reviewed. Upon my initial evaluation, patient appeared to be in mild to moderate respiratory distress. Patient did have some blue around her lips, short sentences, short breathing. Tachypneic. Patient was immediately placed on a 100% nonrebreather. HEET: Head normocephalic atraumatic, TMs clear bilaterally. Posterior pharynx is clear, moist mucous membranes. Nares clear bilaterally. Patient did have some signs of cyanosis around the lips. Neck: Supple with no lymphadenopathy or tenderness. No signs of meningismus. Cardiac: Tachycardic rate no murmurs gallops or rubs, equal peripheral pulses bilaterally. Respiratory: Diminished lung sounds to bilateral bases. No chest tenderness. Abdomen: Soft, nontender, nondistended. No abdominal bruit or pulsatile masses. No hepatosplenomegaly Extremities: No peripheral edema, no signs of gross trauma or deformity. Active full range of motion of all extremities. Neuro: Cranial nerves II through XII intact, no focal neurological deficits. Skin: Clean dry and intact with no rash, purpura, petechiae, vesicles or pustules. Backs/flank: No CVA tenderness, no midline spinal tenderness, no deformity. Psych: Normal mood and affect. No SI, HI or acute psychosis. Const Vital Signs: 09/05/24 20:24 09/05/24 20:26 09/05/24 20:29 Temperature 97.1 F L Temperature Source Temporal Pulse Rate 96 89 84 Respiratory Rate 30 H 20 H 21 H Respiratory Effort Respiratory Depth Respiratory Pattern Blood Pressure 171/100 H Blood Pressure Mean 123 Pulse Ox 55 94 Oxygen Delivery Method Room Air Non-Rebreather Oxygen Flow Rate (L/min) Fraction of Inspired Oxygen (FIO2) 09/05/24 20:30 09/05/24 20:30 09/05/24 20:39 Temperature Temperature Source Pulse Rate 86 Respiratory Rate 21 H Respiratory Effort Non-Labored Short of Breath Respiratory Depth Normal Respiratory Pattern Tachypnea Blood Pressure 169/96 H Blood Pressure Mean 118 Pulse Ox 95 Oxygen Delivery Method Non-Rebreather Non-Rebreather Oxygen Flow Rate (L/min) 10 Fraction of Inspired Oxygen (FIO2) 09/05/24 20:45 09/05/24 20:55 09/05/24 20:55 Temperature Temperature Source Pulse Rate 81 102 H Respiratory Rate 24 H 24 H Respiratory Effort Respiratory Depth Respiratory Pattern Normal Blood Pressure 163/86 H Blood Pressure Mean 107 Pulse Ox 98 Oxygen Delivery Method Non-Rebreather Oxygen Flow Rate (L/min) 15 Fraction of Inspired Oxygen (FIO2) 100 09/05/24 21:00 09/05/24 21:16 09/05/24 21:44 Temperature 98.4 F 98.7 F Temperature Source Temporal Temporal Pulse Rate 93 104 H 104 H Respiratory Rate 24 H 30 H 30 H Respiratory Effort Respiratory Depth Respiratory Pattern Blood Pressure 160/84 H 176/82 H Blood Pressure Mean 109 113 Pulse Ox 97 95 Oxygen Delivery Method Non-Rebreather Non-Rebreather Oxygen Flow Rate (L/min) Fraction of Inspired Oxygen (FIO2) 09/05/24 23:00 Temperature 98.5 F Temperature Source Temporal Pulse Rate 80 Respiratory Rate 18 Respiratory Effort Respiratory Depth Respiratory Pattern Blood Pressure 128/75 H Blood Pressure Mean 92 Pulse Ox 93 Oxygen Delivery Method Non-Rebreather Oxygen Flow Rate (L/min) Fraction of Inspired Oxygen (FIO2) Positive well nourished and well developed General Appearance ED: well developed <Dr. Saul Quinones MD - Last Filed: 09/05/24 23:16> Physical Exam Const Vital Signs: 09/05/24 20:24 09/05/24 20:26 09/05/24 20:29 Temperature 97.1 F L Temperature Source Temporal Pulse Rate 96 89 84 Respiratory Rate 30 H 20 H 21 H Respiratory Effort Respiratory Depth Respiratory Pattern Blood Pressure 171/100 H Blood Pressure Mean 123 Pulse Ox 55 94 Oxygen Delivery Method Room Air Non-Rebreather Oxygen Flow Rate (L/min) Fraction of Inspired Oxygen (FIO2) 09/05/24 20:30 09/05/24 20:30 09/05/24 20:39 Temperature Temperature Source Pulse Rate 86 Respiratory Rate 21 H Respiratory Effort Non-Labored Short of Breath Respiratory Depth Normal Respiratory Pattern Tachypnea Blood Pressure 169/96 H Blood Pressure Mean 118 Pulse Ox 95 Oxygen Delivery Method Non-Rebreather Non-Rebreather Oxygen Flow Rate (L/min) 10 Fraction of Inspired Oxygen (FIO2) 09/05/24 20:45 09/05/24 20:55 09/05/24 20:55 Temperature Temperature Source Pulse Rate 81 102 H Respiratory Rate 24 H 24 H Respiratory Effort Respiratory Depth Respiratory Pattern Normal Blood Pressure 163/86 H Blood Pressure Mean 107 Pulse Ox 98 Oxygen Delivery Method Non-Rebreather Oxygen Flow Rate (L/min) 15 Fraction of Inspired Oxygen (FIO2) 100 09/05/24 21:00 09/05/24 21:16 09/05/24 21:44 Temperature 98.4 F 98.7 F Temperature Source Temporal Temporal Pulse Rate 93 104 H 104 H Respiratory Rate 24 H 30 H 30 H Respiratory Effort Respiratory Depth Respiratory Pattern Blood Pressure 160/84 H 176/82 H Blood Pressure Mean 109 113 Pulse Ox 97 95 Oxygen Delivery Method Non-Rebreather Non-Rebreather Oxygen Flow Rate (L/min) Fraction of Inspired Oxygen (FIO2) 09/05/24 23:00 Temperature 98.5 F Temperature Source Temporal Pulse Rate 80 Respiratory Rate 18 Respiratory Effort Respiratory Depth Respiratory Pattern Blood Pressure 128/75 H Blood Pressure Mean 92 Pulse Ox 93 Oxygen Delivery Method Non-Rebreather Oxygen Flow Rate (L/min) Fraction of Inspired Oxygen (FIO2) GEORGE <JOSE DE JESUS Freeman - Last Filed: 09/05/24 22:01> [facility] Lab Data Labs: Laboratory Results - last 24 hr 09/05/24 20:30 WBC 12.2 H RBC 4.88 Hgb 14.8 Hct 45.0 MCV 92.2 MCH 30.3 MCHC 32.9 RDW Std Deviation 42.1 RDW Coeff of Mahendra 12.5 Plt Count 354 MPV 9.3 Immature Gran % (Auto) 0.600 Neut % (Auto) 90.5 H Lymph % (Auto) 6.1 L Benzie % (Auto) 2.1 Eos % (Auto) 0.4 Baso % (Auto) 0.3 Absolute Neuts (auto) 11.1 H Absolute Lymphs (auto) 0.75 L Nucleated RBC % 0 D-Dimer Quant (PE/DVT) 0.79 H* Sodium 137 Potassium 3.9 Chloride 95 L Carbon Dioxide 37.0 H Anion Gap 5 BUN 38 H Creatinine 2.45 H Estim Creat Clear Calc 28.13 Est GFR (MDRD) Af Amer 33 L Est GFR (MDRD) Non-Af 28 L BUN/Creatinine Ratio 15.5 Glucose 126 H Lactic Acid 2.2 H* Calcium 17.3 H* Troponin I High Sens 197 H* B-Natriuretic Peptide 135.8 H ABG Data ABG results: ABG 09/05/24 20:52 Specimen Type YASMINE Sample Site Not entered O2 % 15.0 VBG pH 7.44 H VBG pO2 29 VBG HCO3 36 H VBG Total CO2 38 H VBG O2 Sat (Calc) 55 VBG Base Excess 12 H POC Mix VBG pCO2 Pt Tmp 53.4 H O2 Delivery Device NRB Radiography Diagnostic Testing: Clinical Impression(s) from Imaging Studies Chest X-Ray 09/05/24 21:20 IMPRESSION: Slight interval worsening in aeration of the lungs. Otherwise, no change from prior study. Electronically Signed: Can Rowan MD at 22:39 EST , Treatment and Re-Evaluation :: Differential diagnosis includes however is not limited to: Community-acquired pneumonia, COVID-19, influenza, RSV, pleural effusion., PE, ACS, AZ Patient arrives in mild to moderate distress, patient's pulse oxygenation was 50% with some signs of cyanosis around his mouth. Patient was immediately brought to the bed. Patient was placed on nonrebreather oxygen. Patient responded well jumping up to 95%. Patient received a full septic workup including VBG, chest x-ray, cardiac labs well as dimer. COVID-19 influenza RSV swab will be obtained. All radiologic examinations were read, reviewed by the emergency department attending. From these reads, a plan of care will be put in place. Breathing treatments given to the patient. Patient will need to be admitted to the hospital based on my initial evaluation. Patient CBC shows a leukocytosis with a white blood count 12.2, patient's D-dimer was slightly elevated at 0.79, chemistries showed a chloride of 95, CO2 of 37, BUN of 38, creatinine 2.45, patient glucose 126 with a lactic acid 2.2 calcium was severely high at 17.3, troponin 197, BNP 235.8. I believe that the troponin is elevated secondary to the hypoxia. Patient will have a repeat drawn. CTA of the chest was ordered however secondary to the [place], this will not be obtained at this time. Patient is currently on a nonrebreather. At this time, the patient does appear to be in no obvious distress, he is comfortable with a nonrebreather. I will reach out for hospitalist. <Dr. Saul Quinones MD - Last Filed: 09/05/24 23:16> [facility] MDM Narrative Medical decision making narrative: I have personally performed a face to face assessment of the patient and have reviewed the TIFFANIE Note. I performed a substantive portion of the visit including all aspects of the following. My guerra findings include: History is [74-year-old male recent diagnosis of pneumonia. Initially was on 1 antibiotic and most recently has been on Levaquin. He was seen in urgent care twice. Tonight he became more short of breath he states he has not been improving and he came to the emergency department. He does not have any underlying history of cardiac disease or lung disease. He is typically not on oxygen. His initial pulse ox was 55% on room air.] Exam is [74-year-old male vital signs are stable except for his pulse ox of 55% on room air. On a nonrebreather he quickly goes to 95%. H EENT exam pupils round react light. Mytrex members. Neck nontender no JVD no lymphadenopathy. Lungs coarse breath sounds bilaterally. No rales. No rhonchi. Currently no wheezing. Heart regular rhythm rate about 100. Chest wall nontender. Abdomen soft nontender. Moving all 4 extremities. 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 Normal dorsi plantarflexion. Calves are nontender without edema or cords. Neurologically is awake and alert no focal motor deficits. Skin unremarkable. No rashes.] Medical Decision Making [74-year-old male recent treatment for pneumonia getting worse presents hypoxic. Consider pneumonia, effusions, viral syndrome such as COVID, CHF, pulmonary emboli. He has no history of pulmonary emboli or risk factors.] Other additions or changes: [Patient underwent extensive workup. His plain chest x-ray looks like bilateral lower lobe pneumonia. He was started on Rocephin and Zithromax. He has hypercalcemia he was given IV fluids. He is doing quite well at this time a repeat exam at 10:40 PM. He will be admitted to the hospital the ICU. Have already discussed his care with the hospitalist. Again we cannot do a CTA at this time due to his acute kidney injury. A CT chest abdomen pelvis was obtained to 1 better to differentiate the lungs. Also look for any type of malignancy could be causing his hypercalcemia. Troponins elevated most likely from hypoxia. His EKG had no acute signs of AZ. Hospitalist will begin treatment for hypercalcemia. And is taking care of that.] History & Record Review Discussion w/independent historian: Patient and Family Additional record(s) reviewed:: Prior outpatient record, Prior ED visit and Prior labs Lab Data Attestation: I reviewed the patient's lab results. Lab results narrative: CBC shows a white count 12.2. H&H 14 and 45. Platelets 354. D-dimer 0.79. We cannot do a CTA due to his acute kidney injury. Electrolytes show gap of 5. BUN is 38 creatinine 2.45 consistent with acute kidney injury. His most recent creatinines are around 1 glucose 126. Lactic acid 2.2. Calcium is elevated at 17.3 without any specific cause. Troponin 197. BNP 135. COVID, flu and RSV are negative however the patient has been sick more than a week. These could be false negative. He could have an underlying viral syndrome. Versus a bacterial pneumonia. Labs: Laboratory Results - last 24 hr 09/05/24 20:30 WBC 12.2 H RBC 4.88 Hgb 14.8 Hct 45.0 MCV 92.2 MCH 30.3 MCHC 32.9 RDW Std Deviation 42.1 RDW Coeff of Mahendra 12.5 Plt Count 354 MPV 9.3 Immature Gran % (Auto) 0.600 Neut % (Auto) 90.5 H Lymph % (Auto) 6.1 L Benzie % (Auto) 2.1 Eos % (Auto) 0.4 Baso % (Auto) 0.3 Absolute Neuts (auto) 11.1 H Absolute Lymphs (auto) 0.75 L Nucleated RBC % 0 D-Dimer Quant (PE/DVT) 0.79 H* Sodium 137 Potassium 3.9 Chloride 95 L Carbon Dioxide 37.0 H Anion Gap 5 BUN 38 H Creatinine 2.45 H Estim Creat Clear Calc 28.13 Est GFR (MDRD) Af Amer 33 L Est GFR (MDRD) Non-Af 28 L BUN/Creatinine Ratio 15.5 Glucose 126 H Lactic Acid 2.2 H* Calcium 17.3 H* Troponin I High Sens 197 H* B-Natriuretic Peptide 135.8 H ABG Data ABG results: ABG 09/05/24 20:52 Specimen Type YASMINE Sample Site Not entered O2 % 15.0 VBG pH 7.44 H VBG pO2 29 VBG HCO3 36 H VBG Total CO2 38 H VBG O2 Sat (Calc) 55 VBG Base Excess 12 H POC Mix VBG pCO2 Pt Tmp 53.4 H O2 Delivery Device NRB Radiography Chest X-Ray - ED: 2 View, Normal, Heart, Mediastinum, Bony Structures, Chronic Changes, Right Infiltrate and Left Infiltrate Diagnostic Testing: Clinical Impression(s) from Imaging Studies Chest X-Ray 09/05/24 21:20 IMPRESSION: Slight interval worsening in aeration of the lungs. Otherwise, no change from prior study. Electronically Signed: Can Rowan MD at 22:39 EST , Chest x-ray shows normal cardiac silhouette. Chronic changes. I suspect bilateral lower lobe pneumonia. No effusions. Rhythm Strip Rhythm Strip: Sinus Rhythm Rate: 88 Ectopy: PVC(s) EKG Initial EKG: Attestation: I personally reviewed and interpreted this EKG as follows: Interpretation: Sinus Rhythm and No Acute Injury Pattern Comments: Normal sinus rhythm rate 88. No acute signs of AZ or ischemia. Occasional PVCs. <Dr. Saul Quinones MD - Last Filed: 09/05/24 23:16> Critical Care Time Critical Care Time: Yes Critical care time (excluding procedures): 30-74 minutes, Including time spent:, Discussing w/Patient &/or Family/Program Coordinator For Residence Life, Discussing w/Consultants, Arranging Admission or Transfer, Performing Direct Patient Care at Bedside and - (40 minutes.) Discharge Plan Dx/Rx/DC Orders Clinical Impression: Pneumonia of both lower lobes, Hypoxia, Elevated troponin, Hypercalcemia, Acute kidney injury Disposition Disposition: [facility]
[2024-09-05 20:42] LABS: Absolute Lymphocyte Count 0.75 X10^3/uL (0.83-4.51); Absolute Neutrophil Count 11.1 X10^3/uL (2.0-7.7); Basophil# 0.04 X10^3/uL; Basophil% 0.3 % (0-1); Eosinophil# 0.05 X10^3/uL; Eosinophils% 0.4 % (0-5); Hemoglobin 14.8 g/dL (13.0-16.5); Lymphocyte # 0.75 X10^3/ul (0.83-4.51); Lymphocyte % 6.1 % (19-41); Mean Corp Hgb Conc 32.9 g/dL (32-36); Mean Corpuscular Hgb 30.3 pg (27.0-32.0); Mean Corpuscular Volume 92.2 fL (80-94); Mean Platelet Vol. 9.3 fl (6.2-12.0); Monocyte# 0.26 X10^3/uL; Monocyte% 2.1 % (0-10); NRBC Flagged by Analyzer 0 % (0-5); Neutrophil # 11.07 X10^3/uL (2.7-7.7); Neutrophil % 90.5 % (47-70); Platelet Count 354 K/mm3 (150-450); RBC Distribution Width CV 12.5 % (11.6-14.6); RBC Distribution Width SD 42.1 fl (35.1-43.9); Red Blood Count 4.88 M/mm3 (4.6-6.2); White Blood Count 12.2 K/mm3 (4.4-11.0)
[2024-09-05 20:55] LABS: Blood Gas Specimen Type VEN; O2 Delivery Device NRB; SITE Not entered; VBG BASE EXCESS 12 mmol/L (-1.0-3.5); VBG Bicarbonate 36 mmol/L (22-26); VBG PO2 29 mmHg (25-40); VBG SO2 55 % (50-70); VBG TCO2 38 mmol/L (23-33); VBG pCO2 53.4 mmHg (41-51); VBG pH 7.44 (7.32-7.42)
[2024-09-05] MEDS: Ipratropium/Albuterol Sulfate 3 ML AMPUL.NEB INHALATION (20:55)
[2024-09-05] MEDS: Albuterol 2.5 MG/3 ML VIAL.NEB. 5 MG INHALATION (20:55)
[2024-09-05 21:03] LABS: D-Dimer Quantitative (DVT/PE) 0.79 FEU/ug/m (0.27-0.49)
--- NOTE | 2024-09-05 21:20 | RAD_ITS ---
INDICATION: cough EXAMINATION/TECHNIQUE: X-RAY - XR Chest 1 View COMPARISON: 09/01/2024. FINDINGS: Slight interval worsening in aeration of the lungs. The cardiomediastinal silhouette is stable. No pleural effusion or pneumothorax. The osseous structures are unchanged. RAD/Chest 1 View (Portable) IMPRESSION: Slight interval worsening in aeration of the lungs. Otherwise, no change from prior study. Electronically Signed: Can Rowan MD at 22:39 EST ,
[2024-09-05 21:25] LABS: BNP,B-Type NATRIURETIC PEPTIDE 135.8 pg/mL (0-100)
[2024-09-05 21:29] LABS: Lactic Acid 2.2 mmol/L (0.4-1.9)
[2024-09-05 21:30] LABS: Anion Gap 5 (5-15); BUN 38 mg/dL (7-18); BUN/Creat Ratio 15.5 RATIO (10-20); Calcium,Total 17.3 mg/dL (8.5-10.1); Chloride 95 mmol/L (98-107); Creatinine, Serum 2.45 mg/dL (0.70-1.30); EST Glomerular Filtration Rate 28 mL/min (>60); Est Glom Filt Rate - Afr Amer 33 mL/min (>60); Estimated Creatinine Clearance 28.13 ml/min; Glucose 126 mg/dL (74-106); Potassium 3.9 mmol/L (3.5-5.1); Sodium Level 137 mmol/L (136-145); Troponin-I HS 197 pg/mL (3.0-78.0)
[2024-09-05] MEDS: Ceftriaxone 1 GM/50 ML BAG IV (21:37)
[2024-09-05] MEDS: Azithromycin 500 MG in 0.9% Normal Saline (250mL Bag) 250 ML 255 MG IV (21:40)
[2024-09-05] MEDS: Acetaminophen 500 MG Tablet 1000 MG PO (21:49)
--- NOTE | 2024-09-05 22:21 | PCM.HP.STD ---
[facility] - General General Date of Admission: 09/05/24 Date of Service: 09/05/24 Chief Complaint: Worsening SOB. [facility] Narrative IBIS BARRAGAN, is a 74 M with a past medical history of essential hypertension; on triamterene-hydrochlorothiazide, hyperlipidemia; on rosuvastatin, overweight; with BMI of 27.7 present on admission, ANA; on CPAP, BPH; on tamsulosin, OA, listed allergy to PCN, listed allergy to sulfa (rash), history of diverticulitis; with associated LGIB and recommendation by surgery ~12 years ago for partial colectomy after his last colonoscopy; which patient declined and recently diagnosed Pneumonia as outpatient at Urgent Care; initially treated with oral azithromycin which failed causing patient to be switched to oral levofloxacin on his second visit who presents to [facility] ER complaining of worsening SOB. Mr. Barragan reports his symptoms began approximately two weeks prior to admission with the gradual-onset of VITALE that progressed to SOB at rest. He initially went to urgent care and was apparently started on azithromycin without improvement so he returned to urgent care and was started on levofloxacin which also felt to help his symptoms so they decided to come in for further evaluation and treatment. He states he has been wearing his CPAP all day though he only needed to use it nightly previously. He also admits to severe generalized weakness and malaise with determination not to come to the hospital unless he absolutely had to. He admits to fever, chills, generalized weakness, malaise, nonproductive cough and myalgias but he denies visual changes, sore throat, nasal congestion, chest pain, palpitations, abdominal pain, nausea, vomiting, diarrhea, constipation, dysuria, headache, history of hypercalcemia or malignancy. 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 Then after further discussion with the ER physician CT scan of the abdomen pelvis was requested to be ordered to identify possible mass causing patient's hypercalcemia with dry CT of chest results revealing scattered patchy ground-glass and reticular opacities with mild Bronchiectasis and mild anterior lobular septal thickening suspicious for underlying infection and dry CT of abdomen pelvis revealing Acute Sigmoid Diverticulitis with suspected underlying malignancy; with colonoscopy recommended by radiologist after acute infection has resolved in addition to moderate prostatomegaly; with recommendation to correlate with PSA levels. He was then admitted to the ICU for ongoing care for stay that is expected to extend beyond 2 midnights. PFSH Medical History no medical history Home Medications ?Medication ?Instructions ?Recorded ?Last Taken ?Type rosuvastatin 10 mg tablet 10 mg PO QHS 08/23/24 Unknown History tamsulosin 0.4 mg capsule 0.8 mg PO QDAY 08/23/24 Unknown History triamterene 75 0.5 tab PO DAILY 08/23/24 Unknown History mg-hydrochlorothiazide 50 mg tablet albuterol sulfate 90 mcg/actuation 2 puff inhalation Q6H PRN 09/01/24 Unknown Rx aerosol inhaler shortness of breath or wheezing #8.5 grams levofloxacin 750 mg tablet 750 mg PO Q24H #10 tabs 09/01/24 Unknown Rx Allergy/AdvReac Type Severity Reaction Status Date / Time Penicillins Allergy Severe Rash Verified 09/01/24 14:49 Sulfa (Sulfonamide Allergy Intermediate Rash Verified 09/01/24 14:49 Antibiotics) (sulfa drugs) Social History Smoking Status: Former smoker ROS ROS Narrative Review of Systems: Constitutional: Patient admits to fever, chills and generalized weakness but he denies weight loss. Eyes: Patient denies changes in vision or discharge from eyes. ENT: Patient denies runny nose sore throat or ear pain. Resp: Patient admits to dyspnea on exertion that progressed to severe shortness of breath with nonproductive cough as per HPI. CV: Patient denies chest pain, palpitations or heart racing. GI: Patient denies abdominal pain, nausea, vomiting, diarrhea or constipation. : Patient denies dysuria or hematuria. MSK: Patient admits to myalgias but he denies arthralgias. Skin: Patient denies rash, abscess or jaundice. Psych: Patient denies symptoms of uncontrolled depression or anxiety. Neuro: Patient denies headache, paresthesias or focal neurologic deficits. Allergy: Patient denies lip swelling, tongue swelling or urticaria. Hematology: Patient denies easy bleeding or easy bruisability. Endocrinology: Patient denies polyuria, polydipsia or polyphagia. 14 point review of systems otherwise negative save for positives noted above in HPI. Vital Signs Vital Signs Vital Signs: 09/05/24 20:24 09/05/24 20:26 09/05/24 20:29 Temperature 97.1 F L Temperature Source Temporal Pulse Rate 96 89 84 Respiratory Rate 30 H 20 H 21 H Respiratory Effort Respiratory Depth Respiratory Pattern Blood Pressure 171/100 H Blood Pressure Mean 123 Pulse Ox 55 94 Oxygen Delivery Method Room Air Non-Rebreather Oxygen Flow Rate (L/min) Fraction of Inspired Oxygen (FIO2) 09/05/24 20:30 09/05/24 20:30 09/05/24 20:39 Temperature Temperature Source Pulse Rate 86 Respiratory Rate 21 H Respiratory Effort Non-Labored Short of Breath Respiratory Depth Normal Respiratory Pattern Tachypnea Blood Pressure 169/96 H Blood Pressure Mean 118 Pulse Ox 95 Oxygen Delivery Method Non-Rebreather Non-Rebreather Oxygen Flow Rate (L/min) 10 Fraction of Inspired Oxygen (FIO2) 09/05/24 20:45 09/05/24 20:55 09/05/24 20:55 Temperature Temperature Source Pulse Rate 81 102 H Respiratory Rate 24 H 24 H Respiratory Effort Respiratory Depth Respiratory Pattern Normal Blood Pressure 163/86 H Blood Pressure Mean 107 Pulse Ox 98 Oxygen Delivery Method Non-Rebreather Oxygen Flow Rate (L/min) 15 Fraction of Inspired Oxygen (FIO2) 100 09/05/24 21:00 09/05/24 21:16 09/05/24 21:44 Temperature 98.4 F 98.7 F Temperature Source Temporal Temporal Pulse Rate 93 104 H 104 H Respiratory Rate 24 H 30 H 30 H Respiratory Effort Respiratory Depth Respiratory Pattern Blood Pressure 160/84 H 176/82 H Blood Pressure Mean 109 113 Pulse Ox 97 95 Oxygen Delivery Method Non-Rebreather Non-Rebreather Oxygen Flow Rate (L/min) Fraction of Inspired Oxygen (FIO2) Weight Weight: 182 lb Body Mass Index (BMI) 27.6 Physical Exam Const alert, oriented x3 and average body habitus Constitutional Narrative: Patient noted to be in moderate respiratory distress in spite of 100% nonrebreather now switched to Airvo. General Appearance: cooperative HEENT normocephalic, head/scalp atraumatic and hearing grossly normal bilaterally HEENT Narrative: Patient was noted to have mildly cyanotic lips. Eyes PERRL and EOMs intact bilaterally Neck no lymphadenopathy and supple Resp Resp Narrative: Diminished breath sounds throughout most pronounced at the bases. Cardio regular rate and regular rhythm GI normal to inspection, nondistended, normoactive bowel sounds, soft to palpation, non-tender and non-distended Extremity normal to inspection, full ROM and no clubbing, cyanosis or edema Skin Skin Narrative: Patient has no evidence of rash, abscess or jaundice. Neuro oriented x3, CN's II-XII intact bilaterally, moves all extremities and no focal motor deficits Sensorium / Orientation: awake, alert, oriented to person, oriented to place and oriented to time Speech: speech normal Psych affect normal Results Medical Records Data Attestation: I reviewed the patient's medical records Lab / Micro Data Attestation: I reviewed the patient's lab results. 09/06/24 03:30 09/06/24 03:30 Labs: Laboratory Results - last 24 hr 09/05/24 20:30: WBC 12.2 H, RBC 4.88, Hgb 14.8, Hct 45.0, MCV 92.2, MCH 30.3, MCHC 32.9, RDW Std Deviation 42.1, RDW Coeff of Mahendra 12.5, Plt Count 354, MPV 9.3, Immature Gran % (Auto) 0.600, Neut % (Auto) 90.5 H, Lymph % (Auto) 6.1 L, Stephens % (Auto) 2.1, Eos % (Auto) 0.4, Baso % (Auto) 0.3, Absolute Neuts (auto) 11.1 H, Absolute Lymphs (auto) 0.75 L, Nucleated RBC % 0, D-Dimer Quant (PE/DVT) 0.79 H*, Sodium 137, Potassium 3.9, Chloride 95 L, Carbon Dioxide 37.0 H, Anion Gap 5, BUN 38 H, Creatinine 2.45 H, Estim Creat Clear Calc 28.13, Est GFR (MDRD) Af Amer 33 L, Est GFR (MDRD) Non-Af 28 L, BUN/Creatinine Ratio 15.5, Glucose 126 H, Lactic Acid 2.2 H*, Calcium 17.3 H*, Troponin I High Sens 197 H*, B-Natriuretic Peptide 135.8 H Micro: Microbiology 09/05/24 20:29 Mucosa - Nose SARS-CoV-2, Influenza & RSV (PCR) - Final ABG Data ABG results: ABG 09/05/24 20:52 Specimen Type YASMINE Sample Site Not entered O2 % 15.0 VBG pH 7.44 H VBG pO2 29 VBG HCO3 36 H VBG Total CO2 38 H VBG O2 Sat (Calc) 55 VBG Base Excess 12 H POC Mix VBG pCO2 Pt Tmp 53.4 H O2 Delivery Device NRB Imaging [facility] Imaging Services [address] [place] [address] [id number] Chest 1 View (Portable) MR#: [id number] Acct: [id number] Name: IBIS BARRAGAN Rep #: [id number] : 1950 M 74 From: Can Rowan MD PCP: Dr. Efrem Chapman MD Status: REG ER Study: Chest 1 View (Portable) Date of Exam: 09/05/24 Exam# [id number] Ordering Dr: Zohaib Gleason RN BUILDING-C INDICATION: cough EXAMINATION/TECHNIQUE: X-RAY - XR Chest 1 View COMPARISON: 09/01/2024. FINDINGS: Slight interval worsening in aeration of the lungs. The cardiomediastinal silhouette is stable. No pleural effusion or pneumothorax. The osseous structures are unchanged. RAD/Chest 1 View (Portable) IMPRESSION: Slight interval worsening in aeration of the lungs. Otherwise, no change from prior study. Electronically Signed: Can Rowan MD at 22:39 EST , CC: JOSE DE JESUS Gleason; Dr. Efrem Chapman MD ~ Electronic Organ Mechanic: Signed [facility] Imaging Services [address] [place] [address] [id number] Chest without Contrast MR#: [id number] Acct: [id number] Name: IBIS BARRAGAN Rep #: [id number] : 1950 M 74 From: Can Rowan MD PCP: Dr. Efrem Chapman MD Status: ADM IN Study: Chest without Contrast Date of Exam: 09/05/24 Exam# [id number] Ordering Dr: Saul Quinones MD INDICATION: Pneumonia and hypoxia EXAMINATION: CT Chest W/O Contrast Injection TECHNIQUE: Helically acquired images were obtained of the chest without IV contrast. A radiation dose optimization technique was used for this scan. COMPARISON: None. FINDINGS: Lungs: Scattered patchy groundglass and reticular opacities with mild bronchiectasis. There is mild intralobular septal thickening. Mediastinum: The heart is mildly enlarged. There is mediastinal lymphadenopathy. Mild aortic arch and coronary artery calcifications. Pleura: Unremarkable Bones/Soft tissues: There are diffuse degenerative changes of the spine. Upper abdomen: Refer to CT abdomen pelvis report same date. CT/Chest without Contrast IMPRESSION: Scattered patchy groundglass and reticular opacities with mild intralobular septal thickening.. Findings could represent infection and/or edema. Electronically Signed: Can Rowan MD at 23:21 EST , CC: Dr. Saul Quinones MD; Dr. Efrem Chapman MD ~ Electronic Organ Mechanic: Signed [facility] Imaging Services [address] [place] [address] [id number] Abdomen/Pelvis without Cont MR#: [id number] Acct: [id number] Name: IBIS BARRAGAN Rep #: [id number] : 1950 74 From: Can Rowan MD PCP: Dr. Efrem Chapman MD Status: ADM IN Study: Abdomen/Pelvis without Cont Date of Exam: 09/05/24 Exam# [id number] Ordering Dr: Saul Quinones MD INDICATION: Hypercalcemia possible malignancy EXAMINATION: CT Abdomen And Pelvis W/O Contrast Injection TECHNIQUE: Helically acquired images were obtained of the abdomen and pelvis without the use of IV contrast. A radiation dose optimization technique was used for this scan. Oral contrast: None. COMPARISON: None FINDINGS: Evaluation of the solid organs and vascular structures is limited without intravenous contrast. Visualized lung bases: Refer to CT chest report same date. Liver: Scattered hepatic cysts. Gallbladder: Unremarkable Spleen: Unremarkable Pancreas: Unremarkable Adrenal Glands: Unremarkable Kidneys: Unremarkable Vasculature: Severe aortoiliac atherosclerotic disease. GI Tract: Moderately sized hiatal hernia. Scattered colonic diverticula. There is short segment circumferential wall thickening of the sigmoid colon with surrounding mesenteric fat stranding. Lymphadenopathy: None Peritoneum: No ascites. Bladder: Unremarkable Reproductive organs: The prostate is moderately enlarged. Bones/Soft tissues: There are diffuse degenerative changes of the spine. CT/Abdomen/Pelvis without Cont IMPRESSION: Acute sigmoid diverticulitis. Cannot rule out underlying malignancy. Recommend colonoscopy after acute infection has resolved. Moderate prostatomegaly. Correlate with PSA levels. Electronically Signed: Can Rowan MD at 23:24 EST , CC: Dr. Saul Quinones MD; Dr. Efrem Chapman MD ~ Electronic Organ Mechanic: Signed Assessment & Plan Assessment/Plan (1) Acute diverticulitis: (2) Pneumonia: QUALIFIERS: Laterality: bilateral Lung location: unspecified part of lung Pneumonia type: due to unspecified organism Qualified Code(s): J18.9 - Pneumonia, unspecified organism (3) Bronchiectasis: QUALIFIERS: Bronchiectasis type: with acute lower respiratory infection Qualified Code(s): J47.0 - Bronchiectasis with acute lower respiratory infection (4) Sepsis: QUALIFIERS: Acute renal failure type: unspecified Sepsis acute organ dysfunction status: with acute organ dysfunction Sepsis type: sepsis due to unspecified organism Severe sepsis acute organ dysfunction type: acute renal failure Severe sepsis shock status: without septic shock Qualified Code(s): A41.9 - Sepsis, unspecified organism; R65.20 - Severe sepsis without septic shock; N17.9 - Acute kidney failure, unspecified (5) Lactic acidosis: (6) Leukocytosis: QUALIFIERS: Leukocytosis type: unspecified Qualified Code(s): D72.829 - Elevated white blood cell count, unspecified (7) Hypercalcemia: (8) Acute kidney injury: (9) Dehydration: (10) Elevated troponin: (11) Respiratory insufficiency: (12) Overweight (BMI 25.0-29.9): (13) D-dimer, elevated: PLAN: Plan 1. Acute Diverticulitis with possible Mass and Bilateral Pneumonia with Bronchiectasis and ground-glass opacities noted on CT with possible Sepsis suspected on admission with Leukocytosis of 12.2K and Lactic Acidosis of 2.2 mmol/L both present on admission in the setting of Failure of Outpatient Antibiotic Treatment x 2 with azithromycin and levofloxacin with a listed allergy to PCN (rash) and sulfa (rash) with previous bout of diverticulitis with LGIB and recommendation for partial colectomy after last colonoscopy ~12 years ago; which patient declined - Admit to ICU. Start IV Merrem and await culture and sensitivity data and stop IV azithromycin as patient has a documented treatment failure with this agent. Check urinary antigens to Streptococcus pneumonia and Legionella. Check extended viral respiratory panel and placed on droplet and contact precautions until results confirmed negative. Keep NPO for now except for ice chips, sips and medications. Give acetaminophen prn for [id number] (level 1-5/10) pain or fever. Give morphine IV prn for severe (level 6-10/10) pain. Finally, we will consult general surgeon on-call to see this patient on-rounds in the AM for further recommendations with help appreciated in advance. 2. 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 I have spoken with the pharmacist on-call and ordered STAT IV pamidronate to minimize delays. Check intact-PTH, PTH-rp, PSA and vitamin D levels. Follow-up testing revealed calcium down to 15 mg/dL. 3. ISRAEL; with elevated serum creatinine of 2.45 mg/dL and BUN of 38 mg/dL present on admission (up from his baseline of 0.95 mg/dL and 21 mg/dL in July 2024) compounding #1 & #2 likely due to Dehydration - Aggressively volume resuscitate and recheck renal indices daily to follow trend of response to treatment. ER physician was asked to check STAT CT scan of abdomen and pelvis to evaluate for suspected mass and rule out possible urinary outlet obstruction with no acute pathology noted other than moderate prostatomegaly with recommendation to check PSA to correlate which has been done. We will avoid potentially nephrotoxic agents. 4. Elevated troponin of 197 pg/mL present on admission suspected to be due to Acute Cardiac Strain adding to the medical complexity of #1 - #3 - Give furosemide 40 mg IV once plus Hydralazine IV prn for systolic blood pressure > 160 mmHg. Serialize troponin. Give rectal aspirin and SL NTG prn for chest pain should it develop. Follow-up testing revealed downward trending second troponin of 152 pg/mL. 5. Acute Hypoxic Respiratory Failure requiring Airvo with tachypnea of 30 bpm noted on admission arising from #1 - #4 with patient started on initially started on 100% NRB with continued hypoxia - CTA of chest could not be done due to ISRAEL outlined in #3. Check ABG. Wean Airvo as tolerated. Slightly elevated BNP of 135.8 pg/mL mitigating against significant CHF. Elevated d-dimer of 0.79 mg/dL present on admission is normal when adjusted for age but with severity of patient's symptoms V/Q scan pending in AM. 6. BPH; on tamsulosin with moderate prostatomegaly noted on admission CT along with recommendation to check PSA to correlate - Resume tamsulosin and check PSA as per radiologist's recommendations. 7. Hyperlipidemia; on rosuvastatin - Continue statin and check Lipid Profile in light of #4. 8. Overweight; with BMI of 27.7 present on admission plus ANA; on CPAP - Weight loss will be recommended. Check TSH. Hold CPAP to avoid possible increased bowel insufflation. 9. OA - Give acetaminophen prn. 10. DVT/GI prophylaxis - Heparin 5,000 U sq. BID plus SCD's. Protonix 40 mg IV daily. Total time: Approximately (but not less than) 75 minutes. Sepsis Attestation Sepsis Attestation: Sepsis Ruled Out Date exam was performed: 09/05/24 Time exam was performed: 23:30 Possible Source of Sepsis: Pulmonary Sepsis Organ Dysfunction Criteria Present: Creatinine > 2.0 mg/dL and Lactic Acid > 2 mmol/L Fluid Resuscitation Fluid Resuscitation ordered: Fluids not indicated Amount of fluid ordered: 0 Reason for lesser fluid bolus:: Concern for fluid overload Sepsis Note Date exam was performed: 09/06/24 Time exam was performed: 03:30 Sepsis Attestation: Sepsis re-evaluation was performed Response to fluids: Fluid responsive hypotension Charges/Coding Visit Charges Inpatient E&M: 08258 Init Hosp L3
--- NOTE | 2024-09-05 22:26 | CT_ITS ---
INDICATION: Pneumonia and hypoxia EXAMINATION: CT Chest W/O Contrast Injection TECHNIQUE: Helically acquired images were obtained of the chest without IV contrast. A radiation dose optimization technique was used for this scan. COMPARISON: None. FINDINGS: Lungs: Scattered patchy groundglass and reticular opacities with mild bronchiectasis. There is mild intralobular septal thickening. Mediastinum: The heart is mildly enlarged. There is mediastinal lymphadenopathy. Mild aortic arch and coronary artery calcifications. Pleura: Unremarkable Bones/Soft tissues: There are diffuse degenerative changes of the spine. Upper abdomen: Refer to CT abdomen pelvis report same date. CT/Chest without Contrast IMPRESSION: Scattered patchy groundglass and reticular opacities with mild intralobular septal thickening.. Findings could represent infection and/or edema. Electronically Signed: Can Rowan MD at 23:21 EST ,
--- NOTE | 2024-09-05 22:26 | CT_ITS ---
INDICATION: Hypercalcemia possible malignancy EXAMINATION: CT Abdomen And Pelvis W/O Contrast Injection TECHNIQUE: Helically acquired images were obtained of the abdomen and pelvis without the use of IV contrast. A radiation dose optimization technique was used for this scan. Oral contrast: None. COMPARISON: None FINDINGS: Evaluation of the solid organs and vascular structures is limited without intravenous contrast. Visualized lung bases: Refer to CT chest report same date. Liver: Scattered hepatic cysts. Gallbladder: Unremarkable Spleen: Unremarkable Pancreas: Unremarkable Adrenal Glands: Unremarkable Kidneys: Unremarkable Vasculature: Severe aortoiliac atherosclerotic disease. GI Tract: Moderately sized hiatal hernia. Scattered colonic diverticula. There is short segment circumferential wall thickening of the sigmoid colon with surrounding mesenteric fat stranding. Lymphadenopathy: None Peritoneum: No ascites. Bladder: Unremarkable Reproductive organs: The prostate is moderately enlarged. Bones/Soft tissues: There are diffuse degenerative changes of the spine. CT/Abdomen/Pelvis without Cont IMPRESSION: Acute sigmoid diverticulitis. Cannot rule out underlying malignancy. Recommend colonoscopy after acute infection has resolved. Moderate prostatomegaly. Correlate with PSA levels. Electronically Signed: Can Rowan MD at 23:24 EST ,
[2024-09-05] MEDS: Pamidronate Disodium 90 MG in 0.9% Normal Saline (1000mL) 1,000 ML 333 MG IV (23:14)
[2024-09-06] VITALS (35 sets, daily range): BP systolic 105–144; BP diastolic 53–96; PULSE 58–75; RESP 12–24; TEMP 36.4–37.2; O2SAT 91–99; BMI 28.3
[2024-09-06 00:37] LABS: Reflex Lactate? Y
[2024-09-06] MEDS: 0.9% Normal Saline (1000mL) 1,000 ML 100 ML IV (00:48)
[2024-09-06] MEDS: Furosemide 40 MG/4 ML Vial IV ×3 (00:49→20:59)
[2024-09-06] MEDS: Meropenem 1 GM in 0.9% Normal Saline (100mL MB+) 100 ML IV ×3 (00:49→20:59)
[2024-09-06] MEDS: 0.9% Normal Saline (100mL Bag) 100 ML 15 ML IV (00:50)
[2024-09-06 01:10] LABS: Anion Gap 5 (5-15); BUN 36 mg/dL (7-18); BUN/Creat Ratio 16.4 RATIO (10-20); Chloride 101 mmol/L (98-107); Cholesterol 75 mg/dL (200); EST Glomerular Filtration Rate 31 mL/min (>60); Est Glom Filt Rate - Afr Amer 38 mL/min (>60); Estimated Creatinine Clearance 31.33 ml/min; Glucose 146 mg/dL (74-106); High Density Lipoprotein 36 mg/dL; Potassium 3.8 mmol/L (3.5-5.1); Sodium Level 138 mmol/L (136-145); Triglycerides 71 mg/dL; Troponin-I HS 152 pg/mL (3.0-78.0); Very Low Density Lipoprotein 14 mg/dL (5-40)
[2024-09-06 01:36] LABS: Lactic Acid 1.5 mmol/L (0.4-1.9)
[2024-09-06] MEDS: 0.9% Saline Lock 10 ML Syringe IV (02:38)
[2024-09-06] MEDS: Tamsulosin HCl 0.4 MG Capsule PO ×3 (02:38→20:59)
[2024-09-06] MEDS: Ondansetron 4 MG/2 ML Vial IV ×2 (02:51→13:53)
[2024-09-06] MEDS: Aspirin 300 MG Suppository RC (03:20)
[2024-09-06 03:21] LABS: Allen Test Positive; Base Excess 10 mmol/L (-2 to +2); Bicarbonate 34.2 mmol/L (22-26); Blood Gas Specimen Type ART; Mode Not entered; O2 Delivery Device HFNC; PO2 51 mmHG (75-100); SITE R Radial; SO2 86 % (95-99); Total Carbon Dioxide 36 mmol/L; pCO2 52.5 mmHg (35-45); pH 7.42 (7.35-7.45)
[2024-09-06 03:40] LABS: Absolute Neutrophil Count 7.8 X10^3/uL (2.0-7.7); Basophil# 0.03 X10^3/uL; Basophil% 0.3 % (0-1); Eosinophil# 0.03 X10^3/uL; Eosinophils% 0.3 % (0-5); Hematocrit 36.2 % (40-54); Hemoglobin 12.1 g/dL (13.0-16.5); Lymphocyte % 8.9 % (19-41); Mean Corp Hgb Conc 33.4 g/dL (32-36); Mean Corpuscular Hgb 30.9 pg (27.0-32.0); Mean Corpuscular Volume 92.6 fL (80-94); Mean Platelet Vol. 9.1 fl (6.2-12.0); Monocyte% 3.3 % (0-10); NRBC Flagged by Analyzer 0 % (0-5); Neutrophil # 7.76 X10^3/uL (2.7-7.7); Neutrophil % 86.8 % (47-70); Platelet Count 278 K/mm3 (150-450); RBC Distribution Width CV 12.5 % (11.6-14.6); RBC Distribution Width SD 42.8 fl (35.1-43.9); Red Blood Count 3.91 M/mm3 (4.6-6.2)
[2024-09-06 04:15] LABS: ALB/GLOB Ratio 0.6 RATIO (0.9-2.4); AST(SGOT) 33 U/L (15-37); Alanine Aminotransfer ALT/SGPT 25 U/L (16-61); Albumin, Serum 2.4 g/dL (3.2-5.0); Alkaline Phosphatase 51 U/L (45-117); Anion Gap 5 (5-15); BUN 34 mg/dL (7-18); BUN/Creat Ratio 15.2 RATIO (10-20); Calcium,Total 14.9 mg/dL (8.5-10.1); Chloride 101 mmol/L (98-107); Creatinine, Serum 2.23 mg/dL (0.70-1.30); EST Glomerular Filtration Rate 31 mL/min (>60); Est Glom Filt Rate - Afr Amer 37 mL/min (>60); Estimated Creatinine Clearance 31.25 ml/min; Globulin 4.3 g/dL (2.2-4.2); Glucose 143 mg/dL (74-106); Potassium 3.6 mmol/L (3.5-5.1); Protein, Total 6.7 g/dL (6.4-8.2); Sodium Level 137 mmol/L (136-145)
[2024-09-06 05:57] LABS: Allen Test Positive; Base Excess 12 mmol/L (-2 to +2); Bicarbonate 35.5 mmol/L (22-26); Blood Gas Specimen Type ART; Mode Not entered; O2 Delivery Device HFNC; PO2 64 mmHG (75-100); SITE R Radial; SO2 93 % (95-99); Total Carbon Dioxide 37 mmol/L; pCO2 49.5 mmHg (35-45); pH 7.46 (7.35-7.45)
--- NOTE | 2024-09-06 07:28 | PN.HOSP_ITS ---
Reason for Visit Reason for Visit: Diagnoses Sepsis, unspecified organism (09/05/24) Elevated white blood cell count, unspecified (09/05/24) Overweight (09/05/24) Hypercalcemia (09/05/24) Dehydration (09/05/24) Acidosis, unspecified (09/05/24) Pneumonia, unspecified organism (09/05/24) Bronchiectasis with acute lower respiratory infection (09/05/24) Diverticulitis of intestine, part unspecified, without perforation or abscess without bleeding (09/05/24) Acute kidney failure, unspecified (09/05/24) Other abnormalities of breathing (09/05/24) Severe sepsis without septic shock (09/05/24) Other specified abnormal findings of blood chemistry (09/05/24) Objective Data Objective Data Vital Signs: Vital Signs Temp Pulse Resp BP Pulse Ox O2 Del Method O2 Flow Rate 97.6 F L 62 20 H 120/61 94 Airvo 40 09/06/24 06:16 09/06/24 07:00 09/06/24 07:00 09/06/24 07:00 09/06/24 07:00 09/06/24 07:00 09/06/24 07:00 FiO2 70 09/06/24 07:00 Oxygen Flow Rate (L/min) 40 Oxygen Delivery Method Airvo Weight: 186 lb 8.177 oz Body Mass Index (BMI) 28.3 Intake & Output: Intake and Output for Last 24 Hours 09/04/24 09/05/24 09/06/24 23:59 23:59 23:59 Intake Total 1305 / 1305 1140.25 / 1140.25 Output Total 1700 / 1700 Balance 1305 / 1305 -559.75 / -559.75 Lab / Micro Data 09/06/24 03:30 09/06/24 03:30 Labs: Laboratory Results - last 24 hr 09/05/24 20:30: WBC 12.2 H, RBC 4.88, Hgb 14.8, Hct 45.0, MCV 92.2, MCH 30.3, MCHC 32.9, RDW Std Deviation 42.1, RDW Coeff of Mahendra 12.5, Plt Count 354, MPV 9.3, Immature Gran % (Auto) 0.600, Neut % (Auto) 90.5 H, Lymph % (Auto) 6.1 L, [place] % (Auto) 2.1, Eos % (Auto) 0.4, Baso % (Auto) 0.3, Absolute Neuts (auto) 11.1 H, Absolute Lymphs (auto) 0.75 L, Nucleated RBC % 0, D-Dimer Quant (PE/DVT) 0.79 H*, Sodium 137, Potassium 3.9, Chloride 95 L, Carbon Dioxide 37.0 H, Anion Gap 5, B UN 38 H, Creatinine 2.45 H, Estim Creat Clear Calc 28.13, Est GFR (MDRD) Af Amer 33 L, Est GFR (MDRD) Non-Af 28 L, BUN/Creatinine Ratio 15.5, Glucose 126 H, L actic Acid 2.2 H*, Calcium 17.3 H*, Troponin I High Sens 197 H*, B-Natriuretic Peptide 135.8 H 09/06/24 00:30: Sodium 138, Potassium 3.8, Chloride 101, Carbon Dioxide 32.0, Anion Gap 5, BUN 36 H, Creatinine 2.20 H, Estim Creat Clear Calc 31.33, Est GFR (MDRD) Af Amer 38 L, Est GFR (MDRD) Non-Af 31 L, BUN/Creatinine Ratio 16.4, G lucose 146 H, Calcium 15.0 H*, Troponin I High Sens 152 H*, Triglycerides 71, Cholesterol 75, LDL Cholesterol 25, VLDL Cholesterol 14, HDL Cholesterol 36 L 09/06/24 01:05: Lactic Acid 1.5 09/06/24 03:30: WBC 9.0, RBC 3.91 L, Hgb 12.1 L, Hct 36.2 L, MCV 92.6, MCH 30.9, MCHC 33.4, RDW Std Deviation 42.8, RDW Coeff of Mahendra 12.5, Plt Count 278, MPV 9.1, Immature Gran % (Auto) 0.400, Neut % (Auto) 86.8 H, Lymph % (Auto) 8.9 L, [place] % (Auto) 3.3, Eos % (Auto) 0.3, Baso % (Auto) 0.3, Absolute Neuts (auto) 7.8 H, Absolute Lymphs (auto) 0.80 L, Nucleated RBC % 0, Sodium 137, Potassium 3.6, Chloride 101, Carbon Dioxide 31.0, Anion Gap 5, BUN 34 H, Creatinine 2.23 H, Estim Creat Clear Calc 31.25, Est GFR (MDRD) Af Amer 37 L, Est GFR (MDRD) Non-Af 31 L, BUN/Creatinine Ratio 15.2, Glucose 143 H, Calcium 14.9 H*, Total Bilirubin 0.40, AST 33, ALT 25, Alkaline Phosphatase 51, Total Protein 6.7, Albumin 2.4 L, Globulin 4.3 H, Albumin/Globulin Ratio 0.6 L, TSH 0.780 Micro: Microbiology 09/06/24 01:15 Mucosa - Nasopharyngeal Respiratory Panel (PCR) - Final 09/05/24 20:29 Mucosa - Nose SARS-CoV-2, Influenza & RSV (PCR) - Final ABG Data ABG results: ABG 09/05/24 09/06/24 09/06/24 20:52 03:17 05:52 Specimen Type YASMINE ART ART Sample Site Not entered R Radial R Radial pH 7.42 7.46 H Bicarbonate Actual 34.2 H 35.5 H Total CO2 36 37 Base Excess 10 H 12 H O2 Saturation 86 L 93 L O2 % 15.0 50.0 70.0 ABG pCO2 52.5 H 49.5 H ABG pO2 51 L 64 L Willi Test Positive Positive VBG pH 7.44 H VBG pO2 29 VBG HCO3 36 H VBG Total CO2 38 H VBG O2 Sat (Calc) 55 VBG Base Excess 12 H POC Mix VBG pCO2 Pt Tmp 53.4 H O2 Delivery Device NRB HFNC HFNC Vent Mode Not entered Not entered Radiography Diagnostic Testing: Radiology Impression Chest X-Ray 09/05/24 21:20 IMPRESSION: Slight interval worsening in aeration of the lungs. Otherwise, no change from prior study. Electronically Signed: Can Rowan MD at 22:39 EST , Abdomen/Pelvis CT 09/05/24 22:26 IMPRESSION: Acute sigmoid diverticulitis. Cannot rule out underlying malignancy. Recommend colonoscopy after acute infection has resolved. Moderate prostatomegaly. Correlate with PSA levels. Electronically Signed: Can Rowan MD at 23:24 EST , Chest CT 09/05/24 22:26 IMPRESSION: Scattered patchy groundglass and reticular opacities with mild intralobular septal thickening.. Findings could represent infection and/or edema. Electronically Signed: Can Rowan MD at 23:21 EST , Rhythm Strip Rhythm Strip: Sinus Rhythm Rate: 88 Ectopy: PVC(s) Physical Exam Narrative Seen and examined History taken from the patient Patient stated he has been sick for 2 weeks with increased shortness of breath, dyspnea at rest with feeling that he cannot get air in. He denies chronic pulmonary disease. History of smoking about a pack per day for about 8 years from 17 to 23 years of age. He also had fever at home about 100 cc 204 Fahrenheit with chills and shivering. Denies significant cough but mild cold. He also noticed that his blood pressure dropped but unclear how much it dropped or whether systolic or diastolic BP. His heart rate usually is in 60s but was not 100 for last 2 weeks. Physical exam General: Alert, Oriented x3, Cooperative, mild respiratory distress on Airvo HEENT: Atraumatic, PERRLA, EOMI, Normocephalic Oral: Oral mucosa dry Neck: Supple, No JVD, Negative Carotid Bruits Chest wall/Lungs: Air entry diminished diffusely in bilateral lungs. Bilateral coarse crepitations. Tachypnea and hypoxia Cardiovascular: Sinus rhythm, regular normal S1, Normal S2, No M/G/R Abdomen: Bowel Sounds Present, Soft, Non Tender, Non-Distended : No dysuria. No renal angle tenderness. No suprapubic tenderness. Extremities: No edema, Capillary Refill Less than 3 Seconds Skin: No rashes, No breakdown Musculoskeletal: No Tenderness to Palpation of Joints or Extremities. ROM full. Neurological: Cranial nerves II-XII grossly intact, DTR 2+/4. No acute focal neurological deficit. Psych/Mental Status: Flat affect Assessment & Plan Assessment/Plan (1) Acute diverticulitis: (2) Pneumonia: QUALIFIERS: Laterality: bilateral Lung location: unspecified part of lung Pneumonia type: due to unspecified organism Qualified Code(s): J18.9 - Pneumonia, unspecified organism (3) Sepsis: QUALIFIERS: Acute renal failure type: unspecified Sepsis acute organ dysfunction status: with acute organ dysfunction Sepsis type: sepsis due to unspecified organism Severe sepsis acute organ dysfunction type: acute renal failure Severe sepsis shock status: without septic shock Qualified Code(s): A 41.9 - Sepsis, unspecified organism; R65.20 - Severe sepsis without septic shock; N17.9 - Acute kidney failure, unspecified (4) Hypercalcemia: (5) Acute kidney injury: PLAN: Plan 74-year-old gentleman was admitted with 2 week history of being sick with hypoxia pulse ox, mid 50s% and being on CPAP, whole day for 3 days which usually wears at nighttime 1. Suspected sepsis due to predominantly bilateral pneumonia with history of bronchiectasis and/or sigmoid diverticulitis : Patient is being admitted in ICU. The patient presented with high suspicion of sepsis with clinical indicators of tachycardia, tachypnea, severe hypoxia requiring nonrebreather/Airvo, leukocytosis due to acute sigmoid diverticulitis/bilateral pneumonia with acute sepsis-related organ dysfunction as evidenced by lactic acidosis, SBP drop of more than 40 mmHg, acute hypoxic respiratory failure and lactic acidosis. He also failed outpatient antibiotic treatment x 2 with azithromycin and Levaquin. Patient was managed as per sepsis protocol with less IV fluid because of concern of fluid overload. Triple PCR for SARS-CoV-2, flu and RSV are negative. Respiratory panel negative. Cyber Incident Handler and general surgery consulted. 2. Acute hypoxic respiratory failure requiring Airvo: Patient in respiratory distress, using CPAP for last 3 days continuously. Tachypnea. Initially on nonrebreather but then changed to Airvo. ABG reviewed. Initially 7.42/52.5/51 on high flow nasal cannula, 50%. Repeat ABG 7.46/50/64 on 70% high flow nasal cannula. Overall it is mixed acid-base disorder with metabolic alkalosis, bicarb 37 and respiratory acidosis. Elevated D-dimer possible infection/sepsis but when patient hemodynamically stable will need VQ scan 3. 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 PTH 5.3 low. TSH 0.78. It shows improvement of 14.9. Cyber Incident Handler ordered calcitonin. 4. [place]: Patient admitted with BUN/creatinine 38/2.45. Baseline 21/0.95 in August 11. After decision. There is slight improvement 2.23. CT abdomen/pelvis did not reveal any suspected mass but moderate prostatomegaly. Avoid nephrotoxins. Consult nephrology. 5. Elevated troponin of 197 pg/mL present on admission suspected to be due to Acute Cardiac Strain/demand ischemia from sepsis: Patient denies chest pain or pressure or tightness. Denies chronic cardiac conditions. Rectal aspirin was given. Furosemide was also given possible because of hypercalcemia 6. BPH; on tamsulosin with moderate prostatomegaly on CT scan: 7. Hyperlipidemia; on rosuvastatin - Continue statin. Liver chemistry shows normal transaminases and bilirubin. Fasting profile LDL 25, HDL 36 and 8. Overweight; with BMI of 27.7 present on admission plus ANA; on CPAP -weight loss recommended. 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 OA - Give acetaminophen prn. 10. DVT/GI prophylaxis - Heparin 5,000 U sq. BID plus SCD's. Protonix 40 mg IV daily. Laboratory Results - last 24 hr 09/05/24 20:30: WBC 12.2 H, RBC 4.88, Hgb 14.8, Hct 45.0, MCV 92.2, MCH 30.3, MCHC 32.9, RDW Std Deviation 42.1, RDW Coeff of Mahendra 12.5, Plt Count 354, MPV 9.3, Immature Gran % (Auto) 0.600, Neut % (Auto) 90.5 H, Lymph % (Auto) 6.1 L, [place] % (Auto) 2.1, Eos % (Auto) 0.4, Baso % (Auto) 0.3, Absolute Neuts (auto) 11.1 H, Absolute Lymphs (auto) 0.75 L, Nucleated RBC % 0, D-Dimer Quant (PE/DVT) 0.79 H*, Sodium 137, Potassium 3.9, Chloride 95 L, Carbon Dioxide 37.0 H, Anion Gap 5, B UN 38 H, Creatinine 2.45 H, Estim Creat Clear Calc 28.13, Est GFR (MDRD) Af Amer 33 L, Est GFR (MDRD) Non-Af 28 L, BUN/Creatinine Ratio 15.5, Glucose 126 H, L actic Acid 2.2 H*, Calcium 17.3 H*, Troponin I High Sens 197 H*, B-Natriuretic Peptide 135.8 H 09/06/24 00:30: Sodium 138, Potassium 3.8, Chloride 101, Carbon Dioxide 32.0, Anion Gap 5, BUN 36 H, Creatinine 2.20 H, Estim Creat Clear Calc 31.33, Est GFR (MDRD) Af Amer 38 L, Est GFR (MDRD) Non-Af 31 L, BUN/Creatinine Ratio 16.4, G lucose 146 H, Calcium 15.0 H*, Troponin I High Sens 152 H*, Triglycerides 71, Cholesterol 75, LDL Cholesterol 25, VLDL Cholesterol 14, HDL Cholesterol 36 L 09/06/24 01:05: Lactic Acid 1.5 09/06/24 03:30: WBC 9.0, RBC 3.91 L, Hgb 12.1 L, Hct 36.2 L, MCV 92.6, MCH 30.9, MCHC 33.4, RDW Std Deviation 42.8, RDW Coeff of Mahendra 12.5, Plt Count 278, MPV 9.1, Immature Gran % (Auto) 0.400, Neut % (Auto) 86.8 H, Lymph % (Auto) 8.9 L, [place] % (Auto) 3.3, Eos % (Auto) 0.3, Baso % (Auto) 0.3, Absolute Neuts (auto) 7.8 H, Absolute Lymphs (auto) 0.80 L, Nucleated RBC % 0, Sodium 137, Potassium 3.6, Chloride 101, Carbon Dioxide 31.0, Anion Gap 5, BUN 34 H, Creatinine 2.23 H, Estim Creat Clear Calc 31.25, Est GFR (MDRD) Af Amer 37 L, Est GFR (MDRD) Non-Af 31 L, BUN/Creatinine Ratio 15.2, Glucose 143 H, Calcium 14.9 H*, Total Bilirubin 0.40, AST 33, ALT 25, Alkaline Phosphatase 51, Total Protein 6.7, Albumin 2.4 L, Globulin 4.3 H, Albumin/Globulin Ratio 0.6 L, TSH 0.780 Charges/Coding Visit Charges Inpatient E&M: 35679 Subs Hosp L3
--- NOTE | 2024-09-06 09:38 | EX.PCM.CON.S ---
Assessment & Plan Assessment/Plan (1) Acute diverticulitis: PLAN: Patient is 74-year-old male admitted to the hospital primarily for hypoxia and atypical pneumonia but was incidentally found to have evidence of inflammatory change within his sigmoid colon. Radiology has called this acute diverticulitis but also could not exclude an underlying mass lesion. Recommended follow-up colonoscopy. Upon eliciting patient's history and obtaining an exam it remains difficult to fully exclude a mass lesion as he does describe about a years worth of melanic stools and altered bowel habits. With exam he is focally tender to palpation over the sigmoid colon. Therefore, recommend conservative treatment for diagnosis of acute uncomplicated diverticulitis and plan for short interval follow-up to colonoscopy once his respiratory status is significantly improved. To further clarify patient's white blood cell count his normal and his tenderness is minimal so I believe he is appropriate for advancement to a liquid diet but defer to primary team based on patient's respiratory status. Will continue to follow with serial abdominal exams. Junior Bae MD General Surgery Endocrine Surgery Pager: [facility] [address] [place] [address], [facility], [address] [place] [address] Office: [phone] HPI Consult Data Date of Consult: 09/06/24 HPI Narrative Reason for Consultation: Diverticulitis HPI Narrative: IBIS BARRAGAN, is a 74 M who presented to [facility] with complaints of severe shortness of breath. On intake he was noted in the profoundly hypoxic with O2 saturation in the 50s and visibly cyanotic. He was responsive to this and of supplemental oxygen and his workup ensued with chest x-ray, abdominal CT imaging, and chest CT imaging. It is unclear exactly why patient underwent a abdominal CT imaging but he did report several episodes of emesis prior to his arrival. He denied any difficulty otherwise with abdominal pain or irregular bowel habits. This imaging was notable for demonstration of multiple hepatic abscesses as well as evidence of acute diverticulitis with a focal area of circumferential narrowing in the sigmoid colon and radiology noted that a mass could not be excluded. Surgery is asked to consult on the basis of this finding. Mr. Barragan shares that approximately 9 to 11 years ago he experienced multiple bouts of bloody bowel movements and was immediately referred to gastroenterology. This led to a colonoscopy where he was informed by the shoe reconditioner that he had such advanced diverticular disease he was recommended to undergo a partial colectomy. Mr. Barragan opted against this recommendation and instead proceeded with modifications of his dietary intake. He declares that until last year he had no further issues but does note a particular episode of bloody bowel movements last year that seem self-limited. When questioned further he does admit to multiple dark stools over the last year and suggest that his stools have become both firmer and less frequent. According to the EMR his PCP had set him up for surveillance colonoscopy in 2021 but is unclear why this was never completed. Mr. Barragan denies any personal history of polyps but does share that his mother was diagnosed with colonic polyps. He denies any family history for colon cancer, diverticulitis, or inflammatory bowel disease. Patient denies any history of abdominal surgery. PFSH Medical History no medical history Home Medications ?Medication ?Instructions ?Recorded ?Last Taken ?Type rosuvastatin 10 mg tablet 10 mg PO QHS 08/23/24 Unknown History tamsulosin 0.4 mg capsule 0.8 mg PO QDAY 08/23/24 Unknown History triamterene 75 0.5 tab PO DAILY 08/23/24 Unknown History mg-hydrochlorothiazide 50 mg tablet albuterol sulfate 90 mcg/actuation 2 puff inhalation Q6H PRN 09/01/24 Unknown Rx aerosol inhaler shortness of breath or wheezing #8.5 grams levofloxacin 750 mg tablet 750 mg PO Q24H #10 tabs 09/01/24 Unknown Rx Allergy/AdvReac Type Severity Reaction Status Date / Time Penicillins Allergy Severe Rash Verified 09/01/24 14:49 Sulfa (Sulfonamide Allergy Intermediate Rash Verified 09/01/24 14:49 Antibiotics) (sulfa drugs) Social History Smoking Status: Former smoker Physical Exam Const Constitutional Narrative: Initially sleeping on my arrival to the room and is somewhat difficult to arouse but once he does so he is fully appropriate and answers questioning cooperatively Resp Resp Narrative: Mildly tachypneic but able to speak in complete sentences. On Airvo he does dip into the high 80s with his oximetry trend. GI GI Narrative: No scars, no visible herniation, nondistended, soft, focally tender to palpation in the left lower quadrant (mild intensity) but otherwise unremarkable Lab / Micro Data 09/06/24 03:30 09/06/24 03:30 Labs: Laboratory Results - last 24 hr 09/05/24 20:30: WBC 12.2 H, RBC 4.88, Hgb 14.8, Hct 45.0, MCV 92.2, MCH 30.3, MCHC 32.9, RDW Std Deviation 42.1, RDW Coeff of Mahendra 12.5, Plt Count 354, MPV 9.3, Immature Gran % (Auto) 0.600, Neut % (Auto) 90.5 H, Lymph % (Auto) 6.1 L, [place] % (Auto) 2.1, Eos % (Auto) 0.4, Baso % (Auto) 0.3, Absolute Neuts (auto) 11.1 H, Absolute Lymphs (auto) 0.75 L, Nucleated RBC % 0, D-Dimer Quant (PE/DVT) 0.79 H*, Sodium 137, Potassium 3.9, Chloride 95 L, Carbon Dioxide 37.0 H, Anion Gap 5, BUN 38 H, Creatinine 2.45 H, Estim Creat Clear Calc 28.13, Est GFR (MDRD) Af Amer 33 L, Est GFR (MDRD) Non-Af 28 L, BUN/Creatinine Ratio 15.5, Glucose 126 H, Lactic Acid 2.2 H*, Calcium 17.3 H*, Troponin I High Sens 197 H*, B-Natriuretic Peptide 135.8 H 09/06/24 00:30: Sodium 138, Potassium 3.8, Chloride 101, Carbon Dioxide 32.0, Anion Gap 5, BUN 36 H, Creatinine 2.20 H, Estim Creat Clear Calc 31.33, Est GFR (MDRD) Af Amer 38 L, Est GFR (MDRD) Non-Af 31 L, BUN/Creatinine Ratio 16.4, Glucose 146 H, Calcium 15.0 H*, Troponin I High Sens 152 H*, Triglycerides 71, Cholesterol 75, LDL Cholesterol 25, VLDL Cholesterol 14, HDL Cholesterol 36 L 09/06/24 01:05: Lactic Acid 1.5 09/06/24 03:30: WBC 9.0, RBC 3.91 L, Hgb 12.1 L, Hct 36.2 L, MCV 92.6, MCH 30.9, MCHC 33.4, RDW Std Deviation 42.8, RDW Coeff of Mahendra 12.5, Plt Count 278, MPV 9.1, Immature Gran % (Auto) 0.400, Neut % (Auto) 86.8 H, Lymph % (Auto) 8.9 L, [place] % (Auto) 3.3, Eos % (Auto) 0.3, Baso % (Auto) 0.3, Absolute Neuts (auto) 7.8 H, Absolute Lymphs (auto) 0.80 L, Nucleated RBC % 0, Sodium 137, Potassium 3.6, Chloride 101, Carbon Dioxide 31.0, Anion Gap 5, BUN 34 H, Creatinine 2.23 H, Estim Creat Clear Calc 31.25, Est GFR (MDRD) Af Amer 37 L, Est GFR (MDRD) Non-Af 31 L, BUN/Creatinine Ratio 15.2, Glucose 143 H, Calcium 14.9 H*, Total Bilirubin 0.40, AST 33, ALT 25, Alkaline Phosphatase 51, Total Protein 6.7, Albumin 2.4 L, Globulin 4.3 H, Albumin/Globulin Ratio 0.6 L, TSH 0.780 Micro: Microbiology 09/06/24 01:15 Mucosa - Nasopharyngeal Respiratory Panel (PCR) - Final 09/05/24 20:29 Mucosa - Nose SARS-CoV-2, Influenza & RSV (PCR) - Final ABG Data ABG results: ABG 09/05/24 09/06/24 09/06/24 20:52 03:17 05:52 Specimen Type YASMINE ART ART Sample Site Not entered R Radial R Radial pH 7.42 7.46 H Bicarbonate Actual 34.2 H 35.5 H Total CO2 36 37 Base Excess 10 H 12 H O2 Saturation 86 L 93 L O2 % 15.0 50.0 70.0 ABG pCO2 52.5 H 49.5 H ABG pO2 51 L 64 L Willi Test Positive Positive VBG pH 7.44 H VBG pO2 29 VBG HCO3 36 H VBG Total CO2 38 H VBG O2 Sat (Calc) 55 VBG Base Excess 12 H POC Mix VBG pCO2 Pt Tmp 53.4 H O2 Delivery Device NRB HFNC HFNC Vent Mode Not entered Not entered Rhythm Strip Rhythm Strip: Sinus Rhythm Rate: 88 Ectopy: PVC(s) Imaging Radiology Impression Chest X-Ray 09/05/24 21:20 IMPRESSION: Slight interval worsening in aeration of the lungs. Otherwise, no change from prior study. Electronically Signed: Can Rowan MD at 22:39 EST , Abdomen/Pelvis CT 09/05/24 22:26 IMPRESSION: Acute sigmoid diverticulitis. Cannot rule out underlying malignancy. Recommend colonoscopy after acute infection has resolved. Moderate prostatomegaly. Correlate with PSA levels. Electronically Signed: Can Rowan MD at 23:24 EST , Chest CT 09/05/24 22:26 IMPRESSION: Scattered patchy groundglass and reticular opacities with mild intralobular septal thickening.. Findings could represent infection and/or edema. Electronically Signed: Can Rowan MD at 23:21 EST , Charges/Coding Visit Charges Inpatient E&M: 12593 Init Hosp L2
[2024-09-06] MEDS: Heparin Injection (Vial) 5,000 UNIT/ML VIAL 5000 UNIT SC ×2 (11:52→20:59)
--- NOTE | 2024-09-06 12:38 | PCMCONS.TICU ---
HPI Consult Data Date of Consult: 09/07/24 HPI Narrative HPI Narrative: IBIS RANGEL, is a 74 M who presents [facility] Medical History no medical history Home Medications ?Medication ?Instructions ?Recorded ?Last Taken ?Type rosuvastatin 10 mg tablet 10 mg PO QHS 08/23/24 Unknown History tamsulosin 0.4 mg capsule 0.8 mg PO QDAY 08/23/24 Unknown History triamterene 75 0.5 tab PO DAILY 08/23/24 Unknown History mg-hydrochlorothiazide 50 mg tablet albuterol sulfate 90 mcg/actuation 2 puff inhalation Q6H PRN 09/01/24 Unknown Rx aerosol inhaler shortness of breath or wheezing #8.5 grams levofloxacin 750 mg tablet 750 mg PO Q24H #10 tabs 09/01/24 Unknown Rx Allergy/AdvReac Type Severity Reaction Status Date / Time Penicillins Allergy Severe Rash Verified 09/01/24 14:49 Sulfa (Sulfonamide Allergy Intermediate Rash Verified 09/01/24 14:49 Antibiotics) (sulfa drugs) Social History Smoking Status: Former smoker Objective Data Objective Data Vital Signs: Vital Signs Last response Temperature 36.8 C 09/06/24 08:00 Temperature Source Temporal 09/06/24 08:00 Pulse Rate 67 09/06/24 11:27 Respiratory Rate 20 H 09/06/24 11:27 Respiratory Effort Normal 09/06/24 08:00 Respiratory Depth Shallow 09/06/24 08:00 Respiratory Pattern Normal 09/06/24 11:27 Blood Pressure 124/77 H 09/06/24 11:00 Blood Pressure Mean 92 09/06/24 11:00 Blood Pressure Source Monitor 09/06/24 11:00 Blood Pressure Position Semi-Fowlers 09/06/24 11:00 Blood Pressure Location Right Arm 09/06/24 11:00 Pulse Ox 95 09/06/24 11:27 Oxygen Delivery Method Airvo 09/06/24 11:00 Oxygen Flow Rate (L/min) 50 09/06/24 11:00 Fraction of Inspired Oxygen (FIO2) 72 09/06/24 11:27 I&O: I&O Last 24 Hours 09/05/24 09/06/24 09/06/24 23:59 11:59 23:59 Intake Total 1305 / 1305 1370.25 / 1520.25 150 / 1520.25 Output Total 2100 / 2100 Balance 1305 / 1305 -729.75 / -579.75 150 / -579.75 I&O: Total Stay 09/05/24 20:23 thru 09/06/24 12:00 Intake Total 2825.25 Output Total 2100 Balance 725.25 Current Meds Ordered / Administered: Current meds ordered / Administered Generic Name Dose Route Start Last Admin Trade Name Freq PRN Reason Stop Dose Admin Acetaminophen 650 mg 09/06/24 03:05 Acetaminophen 650 Mg Suppository RC Q6H PRN PRN Pain 1-10 or Fever Albuterol Sulfate 2.5 mg 09/06/24 00:15 Albuterol 2.5 Mg/3 Ml Vial.Neb. INHALATION Q4H PRN PRN shortness of breath/wheezing Heparin Sodium (Porcine) 5,000 unit 09/06/24 10:00 09/06/24 11:52 Heparin Injection (Vial) 5,000 Unit/Ml Vial SC 5,000 unit Q12 [place] Administration Meropenem 1 gm/ Sodium 120 mls @ 33 mls/hr 09/06/24 00:15 09/06/24 11:49 Chloride IV 33 mls/hr BID [place] Administration Pantoprazole Sodium 40 mg/ 110 mls @ 330 mls/hr 09/06/24 10:00 Sodium Chloride IV Q24 [place] Sodium Chloride 100 mls @ 15 mls/hr 09/06/24 00:17 09/06/24 01:31 IV 0 mls/hr .Q6H40M PRN Infusion Saline Flush Sodium Chloride 100 mls @ 15 mls/hr 09/06/24 00:17 IV .Q6H40M PRN Additional IVPB Infusion Morphine Sulfate 2 mg 09/06/24 00:15 Morphine 2 Mg/Ml Syringe IV Q4H PRN PRN Pain Score 6-10 Ondansetron HCl 4 mg 09/06/24 00:15 09/06/24 02:51 Ondansetron 4 Mg/2 Ml Vial IV 4 mg Q6H PRN PRN Administration NAUSEA/VOMITING Sodium Chloride 10 - 40 ml 09/06/24 00:17 09/06/24 02:38 0.9% Saline Lock 10 Ml Syringe IV 10 ml UD PRN Administration SALINE FLUSH Tamsulosin HCl 0.4 mg 09/06/24 02:15 09/06/24 11:52 Tamsulosin Hcl 0.4 Mg Capsule PO 0.4 mg BID [place] Administration Lab / Micro Data 09/06/24 03:30 09/06/24 03:30 Labs: Laboratory Results - last 24 hr 09/05/24 20:30: WBC 12.2 H, RBC 4.88, Hgb 14.8, Hct 45.0, MCV 92.2, MCH 30.3, MCHC 32.9, RDW Std Deviation 42.1, RDW Coeff of Mahendra 12.5, Plt Count 354, MPV 9.3, Immature Gran % (Auto) 0.600, Neut % (Auto) 90.5 H, Lymph % (Auto) 6.1 L, Coffee % (Auto) 2.1, Eos % (Auto) 0.4, Baso % (Auto) 0.3, Absolute Neuts (auto) 11.1 H, Absolute Lymphs (auto) 0.75 L, Nucleated RBC % 0, D-Dimer Quant (PE/DVT) 0.79 H*, Sodium 137, Potassium 3.9, Chloride 95 L, Carbon Dioxide 37.0 H, Anion Gap 5, BUN 38 H, Creatinine 2.45 H, Estim Creat Clear Calc 28.13, Est GFR (MDRD) Af Amer 33 L, Est GFR (MDRD) Non-Af 28 L, BUN/Creatinine Ratio 15.5, Glucose 126 H, Lactic Acid 2.2 H*, Calcium 17.3 H*, Troponin I High Sens 197 H*, B-Natriuretic Peptide 135.8 H 09/06/24 00:30: Sodium 138, Potassium 3.8, Chloride 101, Carbon Dioxide 32.0, Anion Gap 5, BUN 36 H, Creatinine 2.20 H, Estim Creat Clear Calc 31.33, Est GFR (MDRD) Af Amer 38 L, Est GFR (MDRD) Non-Af 31 L, BUN/Creatinine Ratio 16.4, Glucose 146 H, Calcium 15.0 H*, Troponin I High Sens 152 H*, Triglycerides 71, Cholesterol 75, LDL Cholesterol 25, VLDL Cholesterol 14, HDL Cholesterol 36 L 09/06/24 01:05: Lactic Acid 1.5 09/06/24 03:30: WBC 9.0, RBC 3.91 L, Hgb 12.1 L, Hct 36.2 L, MCV 92.6, MCH 30.9, MCHC 33.4, RDW Std Deviation 42.8, RDW Coeff of Mahendra 12.5, Plt Count 278, MPV 9.1, Immature Gran % (Auto) 0.400, Neut % (Auto) 86.8 H, Lymph % (Auto) 8.9 L, Coffee % (Auto) 3.3, Eos % (Auto) 0.3, Baso % (Auto) 0.3, Absolute Neuts (auto) 7.8 H, Absolute Lymphs (auto) 0.80 L, Nucleated RBC % 0, Sodium 137, Potassium 3.6, Chloride 101, Carbon Dioxide 31.0, Anion Gap 5, BUN 34 H, Creatinine 2.23 H, Estim Creat Clear Calc 31.25, Est GFR (MDRD) Af Amer 37 L, Est GFR (MDRD) Non-Af 31 L, BUN/Creatinine Ratio 15.2, Glucose 143 H, Calcium 14.9 H*, Total Bilirubin 0.40, AST 33, ALT 25, Alkaline Phosphatase 51, Total Protein 6.7, Albumin 2.4 L, Globulin 4.3 H, Albumin/Globulin Ratio 0.6 L, TSH 0.780 Micro: Microbiology 09/06/24 01:15 Mucosa - Nasopharyngeal Respiratory Panel (PCR) - Final 09/05/24 20:29 Mucosa - Nose SARS-CoV-2, Influenza & RSV (PCR) - Final ABG Data ABG results: ABG 09/05/24 09/06/24 09/06/24 20:52 03:17 05:52 Specimen Type YASMINE ART ART Sample Site Not entered R Radial R Radial pH 7.42 7.46 H Bicarbonate Actual 34.2 H 35.5 H Total CO2 36 37 Base Excess 10 H 12 H O2 Saturation 86 L 93 L O2 % 15.0 50.0 70.0 ABG pCO2 52.5 H 49.5 H ABG pO2 51 L 64 L Willi Test Positive Positive VBG pH 7.44 H VBG pO2 29 VBG HCO3 36 H VBG Total CO2 38 H VBG O2 Sat (Calc) 55 VBG Base Excess 12 H POC Mix VBG pCO2 Pt Tmp 53.4 H O2 Delivery Device NRB HFNC HFNC Vent Mode Not entered Not entered Rhythm Strip Rhythm Strip: Sinus Rhythm Rate: 88 Ectopy: PVC(s) Imaging Radiology Impression Chest X-Ray 09/05/24 21:20 IMPRESSION: Slight interval worsening in aeration of the lungs. Otherwise, no change from prior study. Electronically Signed: Can Rowan MD at 22:39 EST , Abdomen/Pelvis CT 09/05/24 22:26 IMPRESSION: Acute sigmoid diverticulitis. Cannot rule out underlying malignancy. Recommend colonoscopy after acute infection has resolved. Moderate prostatomegaly. Correlate with PSA levels. Electronically Signed: Can Rowan MD at 23:24 EST , Chest CT 09/05/24 22:26 IMPRESSION: Scattered patchy groundglass and reticular opacities with mild intralobular septal thickening.. Findings could represent infection and/or edema. Electronically Signed: Can Rowan MD at 23:21 EST , Assessment and Plan . Assessment and plan: LATE ENTRY - DOS is 09/06/24 HPI 74 yo man admitted 09/06/24 w/ many days to weeks of FTT at home. Noted hypoxemia and some respiratory distress in ED - he required high-flow supplemental O2. CT C/A/P reveals colonic diverticula w/ a sigmoid lesion (malignancy v inflammation/phlegmon) as well as bilateral GGO. Viral panel (-), creatinine 2.2, LA 1.5, serum Ca++ 17, BNP 135 He is currently in the ICU. He is breathing O2 via HHFNC comfortably. Afebrile, HD stable. He has received IV ABX as well as IVPB pamidronate. Surgery opinion noted EXAM GEN NAD VS as above HEENT HHFNC NECK obese COR RRR CHEST basilar crackles ABD soft EXT minimal edema SKIN w/d JACQUELYN NF ASSESSMENT 1. Acute respiratory failure requiring high-flow supplemental O2 2. Diffuse GGO on CT 3. Severe hypercalcemia 4. Colonic diverticula w/ sigmoid lesion, (?) malignancy, (?) phlegmon 5. Renal insufficiency 6. Obesity / ANA 7. ASCVD TREATMENT PLAN -supplemental O2 as needed -IVF + loop diuretics for Ca++ - goal I/O (-) -TTE -check serum PO4-- -check SPEP/UPEP -serum PTH -unable to order PTHrP -calcitonin -s/p IVPB pamidronate -VTE ppx -follow Ca++, renal function -IV ABX -surgery opinion noted -CPA w/ sleep as tolerated Critical Care Time: 60 min The entirety of this encounter was done via Telemedicine
--- NOTE | 2024-09-06 13:14 | ECHOD_ITS ---
Reason For Study: CONGESTIVE HEART FAILURE Procedure This was a 2D Doppler, Color Flow transthoracic echocardiogram. The patient was scanned supine. Exam performed portable in ICU/CCU. Left Ventricle Normal LV size. The estimated ejection fraction is 60 %. No evidence for diastolic dysfunction. No regional wall motion abnormalities noted. Right Ventricle Normal RV size. Normal systolic function. Atria The left and right atria are normal. No doppler evidence for ASD. Mitral Valve There is no mitral valve stenosis. Mild (1+) mitral valve insufficiency. Tricuspid Valve There is no tricuspid stenosis. Trivial tricuspid valve insufficiency. Unable to estimate RV systolic pressure due to insufficient tricuspid regurgitant envelope. Aortic Valve Trisinus/trileaflet aortic valve. There is no aortic stenosis. Mild (1+) aortic valve insufficiency. Pulmonic Valve There is no pulmonic valvular stenosis. Trivial pulmonic valve insufficiency identified. Great Vessels Normal aortic root. Pericardium/Pleural No pericardial effusion. MMode/2D Measurements & Calculations LVIDd: 4.8 cm IVSd: 1.3 cm LVOT diam: 2.3 cm LVIDs: 2.7 cm LVPWd: 1.1 cm LVOT area: 4.3 cm2 RVDd: 4.1 cm FS: 44.2 % asc Aorta Diam: 3.8 cm LAV(MOD-bp): 49.1 ml LVAd ap4: 29.8 cm2 LAV(MOD-bp) Indexed: 24.8 ml/m2 LVLd ap4: 8.6 cm LAV(MOD-sp2): 52.9 ml EDV(MOD-sp4): 83.1 ml LAV(MOD-sp4): 42.7 ml EDV(sp4-el): 87.8 ml LVAs ap4: 17.2 cm2 LVLs ap4: 6.9 cm ESV(MOD-sp4): 34.7 ml ESV(sp4-el): 36.8 ml EF(MOD-sp4): 58.3 % EF(sp4-el): 58.1 % LVAd ap2: 31.7 cm2 SV(MOD-sp4): 48.4 ml SV(MOD-sp2): 62.1 ml LVLd ap2: 8.4 cm SI(MOD-sp4): 24.4 ml/m2 SI(MOD-sp2): 31.3 ml/m2 EDV(MOD-sp2): 96.9 ml EDV(sp2-el): 101.8 ml LVAs ap2: 17.0 cm2 LVLs ap2: 6.8 cm ESV(MOD-sp2): 34.9 ml ESV(sp2-el): 36.2 ml EF(MOD-sp2): 64.0 % SV(sp4-el): 51.0 ml Ao sinus diam: 4.[address] Junction: 3.3 cm LA dimension(2D): 4.3 cm LA A4 area: 16.6 cm2 RA A4 area: 13.5 cm2 TAPSE: 2.4 cm Time Measurements MV dec time: 0.23 sec Doppler Measurements & Calculations MV E max chau: 54.9 cm/sec Lat Peak E' Chau: 10.4 cm/sec Med Peak E' Chau: 7.2 cm/sec MV A max chau: 88.0 cm/sec E/E' lat: 5.3 E/E' med: 7.6 MV E/A: 0.62 MV dec slope: 235.0 cm/sec2 Ao V2 max: 110.0 cm/sec LV V1 max: 105.3 cm/sec Ao max P.8 mmHg LV V1 max P.4 mmHg Ao V2 mean: 76.5 cm/sec LV V1 mean P.3 mmHg Ao mean P.6 mmHg LV V1 mean: 70.2 cm/sec Ao V2 VTI: 19.4 cm LV V1 VTI: 20.8 cm AV (velocity ratio): 1.1 SARAH(I,D): 4.6 cm2 SARAH(V,D): 4.1 cm2 SV(LVOT): 88.7 ml PA V2 max: 102.7 cm/sec TR max chau: 247.4 cm/sec TR max P.5 mmHg ECHO/Echo Complete Interpretation Summary The estimated ejection fraction is 60 %. No evidence for diastolic dysfunction. Mild (1+) mitral valve insufficiency. Mild (1+) aortic valve insufficiency. Ordering Physician: Jonathon Cisse Referring Physician: Efrem Chapman Performed By: Nara Neff RDCS
[2024-09-06 13:51] LABS: PTHIN 5.3 pg/mL (18.4-80.1)
[2024-09-06] MEDS: Potassium Chloride Oral Soln 20 MEQ/15 ML UDC 40 MEQ PO (14:35)
[2024-09-06] MEDS: Lactated Ringers 1,000 ML 125 ML IV ×2 (14:40→22:08)
[2024-09-06] MEDS: Calcitonin 400 UNITS/2 ML Vial 340 UNITS SC (14:40)
[2024-09-06] MEDS: Pantoprazole Sodium 40 MG in 0.9% Normal Saline (100mL MB+) 100 ML 330 MG IV (15:52)
[2024-09-07] VITALS (32 sets, daily range): BP systolic 98–133; BP diastolic 55–82; PULSE 52–77; RESP 12–26; TEMP 35.9–37.2; O2SAT 85–100; BMI 27.7
[2024-09-07] MEDS: Calcitonin 400 UNITS/2 ML Vial 340 UNITS SC (00:58)
[2024-09-07 03:47] LABS: Absolute Lymphocyte Count 0.85 X10^3/uL (0.83-4.51); Basophil# 0.03 X10^3/uL; Basophil% 0.3 % (0-1); Eosinophils% 2.3 % (0-5); Hematocrit 37.6 % (40-54); Hemoglobin 12.2 g/dL (13.0-16.5); Lymphocyte # 0.85 X10^3/ul (0.83-4.51); Lymphocyte % 9.7 % (19-41); Mean Corp Hgb Conc 32.4 g/dL (32-36); Mean Corpuscular Hgb 30.2 pg (27.0-32.0); Mean Corpuscular Volume 93.1 fL (80-94); Mean Platelet Vol. 9.1 fl (6.2-12.0); Monocyte# 0.67 X10^3/uL; Monocyte% 7.6 % (0-10); NRBC Flagged by Analyzer 0 % (0-5); Neutrophil % 79.6 % (47-70); Platelet Count 290 K/mm3 (150-450); RBC Distribution Width CV 12.5 % (11.6-14.6); RBC Distribution Width SD 42.5 fl (35.1-43.9); Red Blood Count 4.04 M/mm3 (4.6-6.2); White Blood Count 8.8 K/mm3 (4.4-11.0)
[2024-09-07 04:06] LABS: ALB/GLOB Ratio 0.5 RATIO (0.9-2.4); AST(SGOT) 32 U/L (15-37); Alanine Aminotransfer ALT/SGPT 24 U/L (16-61); Albumin, Serum 2.3 g/dL (3.2-5.0); Alkaline Phosphatase 47 U/L (45-117); Anion Gap 4 (5-15); BUN 32 mg/dL (7-18); BUN/Creat Ratio 16.7 RATIO (10-20); Calcium,Total 12.4 mg/dL (8.5-10.1); Chloride 99 mmol/L (98-107); Creatinine, Serum 1.92 mg/dL (0.70-1.30); EST Glomerular Filtration Rate 37 mL/min (>60); Est Glom Filt Rate - Afr Amer 44 mL/min (>60); Estimated Creatinine Clearance 35.98 ml/min; Globulin 4.6 g/dL (2.2-4.2); Glucose 124 mg/dL (74-106); Magnesium 1.3 mg/dL (1.6-2.6); Phosphorus 2.8 mg/dL (2.5-4.9); Potassium 3.8 mmol/L (3.5-5.1); Protein, Total 6.9 g/dL (6.4-8.2); Sodium Level 135 mmol/L (136-145)
[2024-09-07] MEDS: Magnesium Sulfate 2 GM in Dextrose 5%-Water (100mL Bag) 100 ML IV (04:34)
[2024-09-07] MEDS: Furosemide 40 MG/4 ML Vial IV ×3 (04:34→20:37)
--- NOTE | 2024-09-07 05:20 | RAD_ITS ---
STUDY: X-RAY CHEST REASON FOR EXAM: Male, 74 years old patient with hypoxia. TECHNIQUE: Single AP portable view of the chest. COMPARISON: September 05, 2024. FINDINGS: Cardiac monitoring leads are present. The lungs are expanded. There is bilateral airspace consolidation, more severe on the left than the right. There appear to be small bilateral effusions. There is mild cardiac enlargement. Normal mediastinum and asif. There is prominence of the pulmonary hilar arteries with peripheral pulmonary vascular congestion. There is atherosclerotic tortuosity of the aortic arch and descending thoracic aorta. There are diffuse degenerative changes of the visualized thoracic spine. Normal visualized ribs, clavicles, and shoulders. There is no demonstrated abnormality of the visualized soft tissue structures of the upper abdomen. RAD/Chest 1 View (Portable) IMPRESSION: Findings suggest bilateral multifocal pneumonia. Electronically Signed: Carlee Jeffrey MD at 6:46 EST ,
[2024-09-07] MEDS: Lactated Ringers 1,000 ML 125 ML IV (06:06)
--- NOTE | 2024-09-07 07:48 | PN.HOSP_ITS ---
Reason for Visit Reason for Visit: Diagnoses Elevated white blood cell count, unspecified (09/05/24) Overweight (09/05/24) Hypercalcemia (09/05/24) Dehydration (09/05/24) Bronchiectasis with acute lower respiratory infection (09/05/24) Diverticulitis of intestine, part unspecified, without perforation or abscess without bleeding (09/05/24) Acute kidney failure, unspecified (09/05/24) Severe sepsis without septic shock (09/05/24) Objective Data Objective Data Vital Signs: Vital Signs Temp Pulse Resp BP Pulse Ox O2 Del Method O2 Flow Rate 97.7 F L 63 20 H 129/68 H 92 Airvo 50 09/07/24 04:00 09/07/24 07:39 09/07/24 07:00 09/07/24 07:00 09/07/24 07:00 09/07/24 07:00 09/07/24 07:00 FiO2 50 09/07/24 07:00 Oxygen Flow Rate (L/min) 50 Oxygen Delivery Method Airvo Weight: 182 lb 15.739 oz Body Mass Index (BMI) 27.7 Intake & Output: Intake and Output for Last 24 Hours 09/05/24 09/06/24 09/07/24 23:59 23:59 23:59 Intake Total 1305 / 1305 3683.58 / 3683.58 1665.83 / 1665.83 Output Total 4075 / 4075 800 / 800 Balance 1305 / 1305 -391.42 / -391.42 865.83 / 865.83 Lab / Micro Data 09/07/24 03:40 09/07/24 03:40 Labs: Laboratory Results - last 24 hr 09/06/24 03:30: Phosphorus 4.0, PTH Intact 5.3 L 09/07/24 03:40: WBC 8.8, RBC 4.04 L, Hgb 12.2 L, Hct 37.6 L, MCV 93.1, MCH 30.2, MCHC 32.4, RDW Std Deviation 42.5, RDW Coeff of Mahendra 12.5, Plt Count 290, MPV 9.1, Immature Gran % (Auto) 0.500, Neut % (Auto) 79.6 H, Lymph % (Auto) 9.7 L, [place] % (Auto) 7.6, Eos % (Auto) 2.3, Baso % (Auto) 0.3, Absolute Neuts (auto) 7.0, Absolute Lymphs (auto) 0.85, Nucleated RBC % 0, Sodium 135 L, Potassium 3.8, Chloride 99, Carbon Dioxide 32.0, Anion Gap 4 L, B UN 32 H, Creatinine 1.92 H, Estim Creat Clear Calc 35.98, Est GFR (MDRD) Af Amer 44 L, Est GFR (MDRD) Non-Af 37 L, BUN/Creatinine Ratio 16.7, Glucose 124 H, C alcium 12.4 H, Phosphorus 2.8, Magnesium 1.3 L, Total Bilirubin 0.40, AST 32, ALT 24, Alkaline Phosphatase 47, Total Protein 6.9, Albumin 2.3 L, Globulin 4.6 H, Albumin/Globulin Ratio 0.5 L Micro: Microbiology 09/06/24 12:13 Sputum, Expectorated/Coughed Gram Stain - Final 09/06/24 01:15 Mucosa - Nasopharyngeal Respiratory Panel (PCR) - Final 09/05/24 20:29 Mucosa - Nose SARS-CoV-2, Influenza & RSV (PCR) - Final Radiography Diagnostic Testing: Radiology Impression Chest X-Ray 09/07/24 05:20 IMPRESSION: Findings suggest bilateral multifocal pneumonia. Electronically Signed: Carlee Jeffrey MD at 6:46 EST Reading Location ID and State: [address] [place] [address] , Service support , Rhythm Strip Rhythm Strip: Sinus Rhythm Rate: 88 Ectopy: PVC(s) Physical Exam Narrative Seen and examined Complain of dry nose. On clear liquid. Did not had a bowel movement. Shortness of breath better than yesterday Physical exam General: Alert, Oriented x3, Cooperative HEENT: Atraumatic, PERRLA, EOMI, Normocephalic Oral: Oral mucosa dry Neck: Supple, No JVD, Negative Carotid Bruits Chest wall/Lungs: Air entry diminished diffusely in bilateral lungs. Bilateral coarse crepitations. Cardiovascular: Sinus rhythm, regular normal S1, Normal S2, No M/G/R Abdomen: Bowel Sounds Present, Soft, Non Tender, Non-Distended : No dysuria. No renal angle tenderness. No suprapubic tenderness. Extremities: No edema, Capillary Refill Less than 3 Seconds Skin: No rashes, No breakdown Musculoskeletal: No Tenderness to Palpation of Joints or Extremities. ROM full. Neurological: Cranial nerves II-XII grossly intact, DTR 2+/4. No acute focal neurological deficit. Psych/Mental Status: Flat affect Assessment & Plan Assessment/Plan (1) Acute diverticulitis: (2) Pneumonia: QUALIFIERS: Pneumonia type: due to unspecified organism L aterality: bilateral Lung location: unspecified part of lung Qualified Code(s): J18.9 - Pneumonia, unspecified organism (3) Sepsis: QUALIFIERS: Sepsis type: sepsis due to unspecified organism S epsis acute organ dysfunction status: with acute organ dysfunction Severe sepsis acute organ dysfunction type: acute renal failure Acute renal failure type: unspecified Severe sepsis shock status: without septic shock Qualified Code(s): A41.9 - Sepsis, unspecified organism; R65.20 - Severe sepsis without septic shock; N17.9 - Acute kidney failure, unspecified (4) Hypercalcemia: (5) Acute kidney injury: PLAN: Plan 74-year-old gentleman was admitted with 2 week history of being sick with increasing shortness of breath, dyspnea at rest, could not get the urine. Hypoxia pulse ox, mid 50s% and being on CPAP, whole day for 3 days which usually wears at nighttime Fever at home, 102?104 Fahrenheit with chills and shivering. No significant cough but mild cold. 1. Suspected sepsis due to predominantly bilateral pneumonia with history of bronchiectasis and/or sigmoid diverticulitis : Patient is being admitted in ICU. The patient presented with high suspicion of sepsis with clinical indicators of tachycardia, tachypnea, severe hypoxia requiring nonrebreather/Airvo, leukocytosis due to acute sigmoid diverticulitis/bilateral pneumonia with acute sepsis-related organ dysfunction as evidenced by lactic acidosis, SBP drop of more than 40 mmHg, acute hypoxic respiratory failure and lactic acidosis. He also failed outpatient antibiotic treatment x 2 with azithromycin and Levaquin. History of smoking for 8 years about a pack per day Patient was managed as per sepsis protocol with less IV fluid because of concern of fluid overload. Triple PCR for SARS-CoV-2, flu and RSV are negative. Respiratory panel negative. Director Of Online Education and general surgery consulted. 09/07: No fevers since admission. Continue on antibiotic. 2. Acute hypoxic respiratory failure requiring Airvo: Patient in respiratory distress, using CPAP for last 3 days continuously. Tachypnea. Initially on nonrebreather but then changed to Airvo. ABG reviewed. Initially 7.42/52.5/51 on high flow nasal cannula, 50%. Repeat ABG 7.46/50/64 on 70% high flow nasal cannula. Overall it is mixed acid-base disorder with metabolic alkalosis, bicarb 37 and respiratory acidosis. Elevated D-dimer possible infection/sepsis but when patient hemodynamically stable will need VQ scan 09/07: On 50% FiO2, mild tachypnea and respiratory rate 19 to 20/min. Nasal saline spray and fluticasone ordered 3. 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 PTH 5.3 low. TSH 0.78. It shows improvement of 14.9. Director Of Online Education ordered calcitonin. 09/07: Calcium improved from 17.3-12.4. Patient had IV calcitonin yesterday. Hypomagnesemia, getting IV magnesium 4. [place]: Patient admitted with BUN/creatinine 38/2.45. Baseline 21/0.95 in August 11. After decision. There is slight improvement 2.23. CT abdomen/pelvis did not reveal any suspected mass but moderate prostatomegaly. Avoid nephrotoxins. Consult nephrology. 09/07: Creatinine 1.92 improving. 5. Elevated troponin of 197 pg/mL present on admission suspected to be due to Acute Cardiac Strain/demand ischemia from sepsis: Patient denies chest pain or pressure or tightness. Denies chronic cardiac conditions. Rectal aspirin was given. Furosemide was also given possible because of hypercalcemia 09/07: Echo is ordered 6. BPH; on tamsulosin with moderate prostatomegaly on CT scan: 7. Hyperlipidemia; on rosuvastatin - Continue statin. Liver chemistry shows normal transaminases and bilirubin. Fasting profile LDL 25, HDL 36 and 8. Sigmoid diverticulitis: Patient was diagnosed advanced diverticular disease about 10 years ago after he had multiple bloody bowel movements and had colonoscopy. He opted not for surgery. Had self-limited multiple bloody bowel movement last year. Unclear whether there is a stricture/mass. Will need colonoscopy after 4 to 6-week. 9. overweight; with BMI of 27.7 present on admission plus ANA; on CPAP -weight loss recommended. 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 OA - Give acetaminophen prn. DVT/GI prophylaxis - Heparin 5,000 U sq. BID plus SCD's. Protonix 40 mg IV daily. Charges/Coding Visit Charges Inpatient E&M: 13487 Subs Hosp L3
--- NOTE | 2024-09-07 08:18 | PCM.PN.SRG ---
Subjective Subjective Patient seen and examined during AM rounds. He is found resting in bed. He states he is about the same as yesterday other than he may have some increased lung capacity. He denies significant appetite but shares that his abdominal pain is somewhat better. Objective Data Objective Data Vital Signs: Vital Signs Temp Pulse Resp BP Pulse Ox O2 Del Method O2 Flow Rate 98.9 F 64 17 116/69 92 Airvo 50 09/07/24 08:00 09/07/24 08:00 09/07/24 08:00 09/07/24 08:00 09/07/24 08:00 09/07/24 08:00 09/07/24 08:00 FiO2 50 09/07/24 08:00 Oxygen Flow Rate (L/min) 50 Oxygen Delivery Method Airvo Weight: 182 lb 15.739 oz Body Mass Index (BMI) 27.7 Intake & Output: Intake and Output for Last 24 Hours 09/05/24 09/06/24 09/07/24 23:59 23:59 23:59 Intake Total 1305 / 1305 3683.58 / 3683.58 1665.83 / 1665.83 Output Total 4075 / 4075 800 / 800 Balance 1305 / 1305 -391.42 / -391.42 865.83 / 865.83 Lab / Micro Data 09/07/24 03:40 09/07/24 03:40 Labs: Laboratory Results - last 24 hr 09/06/24 03:30: Phosphorus 4.0, PTH Intact 5.3 L 09/07/24 03:40: WBC 8.8, RBC 4.04 L, Hgb 12.2 L, Hct 37.6 L, MCV 93.1, MCH 30.2, MCHC 32.4, RDW Std Deviation 42.5, RDW Coeff of Mahendra 12.5, Plt Count 290, MPV 9.1, Immature Gran % (Auto) 0.500, Neut % (Auto) 79.6 H, Lymph % (Auto) 9.7 L, [place] % (Auto) 7.6, Eos % (Auto) 2.3, Baso % (Auto) 0.3, Absolute Neuts (auto) 7.0, Absolute Lymphs (auto) 0.85, Nucleated RBC % 0, Sodium 135 L, Potassium 3.8, Chloride 99, Carbon Dioxide 32.0, Anion Gap 4 L, BUN 32 H, Creatinine 1.92 H, Estim Creat Clear Calc 35.98, Est GFR (MDRD) Af Amer 44 L, Est GFR (MDRD) Non-Af 37 L, BUN/Creatinine Ratio 16.7, Glucose 124 H, Calcium 12.4 H, Phosphorus 2.8, Magnesium 1.3 L, Total Bilirubin 0.40, AST 32, ALT 24, Alkaline Phosphatase 47, Total Protein 6.9, Albumin 2.3 L, Globulin 4.6 H, Albumin/Globulin Ratio 0.5 L Micro: Microbiology 09/06/24 12:13 Sputum, Expectorated/Coughed Gram Stain - Final 09/06/24 01:15 Mucosa - Nasopharyngeal Respiratory Panel (PCR) - Final 09/05/24 20:29 Mucosa - Nose SARS-CoV-2, Influenza & RSV (PCR) - Final Radiography Diagnostic Testing: Radiology Impression Chest X-Ray 09/07/24 05:20 IMPRESSION: Findings suggest bilateral multifocal pneumonia. Electronically Signed: Carlee Jeffrey MD at 6:46 EST Reading Location ID and State: [address] [place] [address] , Service support , Rhythm Strip Rhythm Strip: Sinus Rhythm Rate: 88 Ectopy: PVC(s) Physical Exam Const oriented x3 Resp Resp Narrative: Mildly dyspneic GI GI Narrative: Nondistended, soft, nontender to palpation x 4 Assessment & Plan Assessment/Plan (1) Acute diverticulitis: PLAN: Patient is 74-year-old male admitted to the hospital primarily for hypoxia and atypical pneumonia but was incidentally found to have evidence of inflammatory change within his sigmoid colon. Radiology has called this acute diverticulitis but also could not exclude an underlying mass lesion. Recommended follow-up colonoscopy. Patient with less abdominal tenderness today and no intolerance of diet initiated yesterday. Given both patient's tenuous respiratory status and ongoing presumed inflammation of his colon there are no plans for inpatient colonoscopic exam. Thus, patient is appropriate for diet advancement as tolerated. Recommend proceeding stepwise and going from clear liquid to full liquid diet first. Surgery will continue to follow with serial abdominal exams. Anticipate outpatient colonoscopy in 4 weeks or so after patient has been discharged. Junior Bae MD General Surgery Endocrine Surgery Pager: [facility] [address] [place] [address], [facility], [address] [place] [address] Office: [phone] Charges/Coding Visit Charges Inpatient E&M: 11963 Subs Hosp L2
--- NOTE | 2024-09-07 08:35 | PN.CC_ITS ---
Assessment & Plan Assessment/Plan (1) Acute hypoxemic respiratory failure: PLAN: Plan RECOMMENDATIONS: 1. Supplemental oxygen to maintain saturations at or above 90%. 2. Diuresis as tolerated by hemodynamics and renal function. 3. Continue empiric antimicrobials. 4. Workup for hypercalcemia is pending. 5. Consideration for colonoscopy once respiratory status improves. 6. Dietary advancement as tolerated. 7. Echocardiogram is pending. IMPRESSIONS: 1. Acute hypoxemic respiratory failure Clinical concern for underlying pneumonia as precipitating etiology. Plan to continue current supportive measures with IV antimicrobial therapy along with supplemental oxygen to maintain saturations at or above 90%. The patient will also be maintained on scheduled loop diuretics coupled with IV fluids. Encourage incentive spirometer use and mobilize patient as tolerated. 2. Hypercalcemia Unclear etiology. The patient has received pamidronate and calcitonin, today. He is currently receiving supplemental IV fluid hydration coupled with the use of diuretics. Serum calcium level has improved. SPEP and UPEP are pending. 3. Acute kidney injury Most likely prerenal in etiology. Continue current supportive measures. No current indication for renal replacement therapy. 4. Colonic diverticula with sigmoid lesion Tentative plans for endoscopic evaluation once the patient's respiratory status has been optimized. General surgery is currently following. 5. History of hypertension/obstructive sleep apnea on PAP/history of diverticulitis Complicates care, management, recovery and prognosis. Recommend PAP therapy with naps and nightly. This note was generated with [employer] dictation software. It may contain incorrect words, spelling, and punctuation that were not noted in checking the note before signing. Subjective Subjective The patient was seen and examined at the bedside this morning. Events from the last 24 hours have been reviewed. The patient is currently afebrile, hemodynamically stable and maintaining appropriate oxygen saturations on heated high flow with an FiO2 requirement of 50% and flow rate of 50 L/min. The patient is currently documented to be overall net +1.8 L for the hospitalization. White blood cell count is normal. Creatinine has improved to 1.92. Calcium has improved to 12.4. In general, the patient does report interval improvement in his dyspnea over the last 24 hours. Objective Data Objective Data The patient's most recent lab work, culture data and imaging studies have all been personally reviewed. Respiratory viral panel was negative. COVID, influenza and RSV PCR's were negative. Blood and sputum cultures are pending. Vital Signs: Vital Signs Temp Pulse Resp BP Pulse Ox O2 Del Method O2 Flow Rate 98.9 F 64 17 116/69 92 Airvo 50 09/07/24 08:00 09/07/24 08:00 09/07/24 08:00 09/07/24 08:00 09/07/24 08:00 09/07/24 08:00 09/07/24 08:00 FiO2 50 09/07/24 08:00 Oxygen Flow Rate (L/min) 50 Oxygen Delivery Method Airvo Weight: 182 lb 15.739 oz Body Mass Index (BMI) 27.7 Intake & Output: Intake and Output for Last 24 Hours 09/05/24 09/06/24 09/07/24 23:59 23:59 23:59 Intake Total 1305 / 1305 3683.58 / 3683.58 1665.83 / 1665.83 Output Total 4075 / 4075 800 / 800 Balance 1305 / 1305 -391.42 / -391.42 865.83 / 865.83 Lab / Micro Data Attestation: I reviewed the patient's lab results. 09/07/24 03:40 09/07/24 03:40 Labs: Laboratory Results - last 24 hr 09/06/24 03:30: Phosphorus 4.0, PTH Intact 5.3 L 09/07/24 03:40: WBC 8.8, RBC 4.04 L, Hgb 12.2 L, Hct 37.6 L, MCV 93.1, MCH 30.2, MCHC 32.4, RDW Std Deviation 42.5, RDW Coeff of Mahendra 12.5, Plt Count 290, MPV 9.1, Immature Gran % (Auto) 0.500, Neut % (Auto) 79.6 H, Lymph % (Auto) 9.7 L, [place] % (Auto) 7.6, Eos % (Auto) 2.3, Baso % (Auto) 0.3, Absolute Neuts (auto) 7.0, Absolute Lymphs (auto) 0.85, Nucleated RBC % 0, Sodium 135 L, Potassium 3.8, Chloride 99, Carbon Dioxide 32.0, Anion Gap 4 L, BUN 32 H, Creatinine 1.92 H, Estim Creat Clear Calc 35.98, Est GFR (MDRD) Af Amer 44 L, Est GFR (MDRD) Non-Af 37 L, BUN/Creatinine Ratio 16.7, Glucose 124 H, Calcium 12.4 H, Phosphorus 2.8, Magnesium 1.3 L, Total Bilirubin 0.40, AST 32, ALT 24, Alkaline Phosphatase 47, Total Protein 6.9, Albumin 2.3 L, Globulin 4.6 H, A lbumin/Globulin Ratio 0.5 L Micro: Microbiology 09/06/24 12:13 Sputum, Expectorated/Coughed Gram Stain - Final 09/06/24 01:15 Mucosa - Nasopharyngeal Respiratory Panel (PCR) - Final 09/05/24 20:29 Mucosa - Nose SARS-CoV-2, Influenza & RSV (PCR) - Final Radiography Diagnostic Testing: Radiology Impression Chest X-Ray 09/07/24 05:20 IMPRESSION: Findings suggest bilateral multifocal pneumonia. Electronically Signed: Carlee Jeffrey MD at 6:46 EST Reading Location ID and State: [address] [place] [address] , Service support , Rhythm Strip Rhythm Strip: Sinus Rhythm Rate: 88 Ectopy: PVC(s) Physical Exam Const alert and no apparent distress General Appearance: cooperative and ill appearing HEENT normocephalic and head/scalp atraumatic Eyes PERRL, EOMs intact bilaterally and conjunctivae normal Neck supple General: trachea midline Chest inspection of chest normal Resp normal respiratory effort Auscultation: diminished lung sounds; Negative for rales, rhonchi or wheezes Cardio regular rate and regular rhythm GI normal to inspection, nondistended, normoactive bowel sounds Extremity no clubbing, cyanosis or edema Skin no rashes or lesions noted Neuro CN's II-XII intact bilaterally, moves all extremities and no focal motor deficits Psych Mood & Affect: flat affect Charges/Coding Visit Charges Inpatient E&M: 92999 Subs Hosp L3
[2024-09-07] MEDS: Meropenem 1 GM in 0.9% Normal Saline (100mL MB+) 100 ML IV ×2 (09:09→20:38)
[2024-09-07] MEDS: Fluticasone 0.05% 1 SPRAY NASAL.SRY NASAL ×2 (09:10→20:36)
[2024-09-07] MEDS: Pantoprazole Sodium 40 MG Tablet PO ×2 (09:10→20:37)
[2024-09-07] MEDS: Tamsulosin HCl 0.4 MG Capsule PO ×2 (09:10→20:37)
[2024-09-07] MEDS: Heparin Injection (Vial) 5,000 UNIT/ML VIAL 5000 UNIT SC ×2 (09:10→20:37)
--- NOTE | 2024-09-07 10:14 | CASEMGMT ---
HANK ALEXIS Assessment Face to Face with patient for initial transition planning/care coordination assessment. HANK ALEXIS introduced self and role at [facility], pt voices understanding. Pt is A&Ox4 and is resting comfortably in bed and is calm. Pt at bedside. Care providers, pharmacy, and demographics verified. Admitting dx: Sepsis, Diverticulitis, PNA with Hyperglycemia LACE Strata: 2 PCP: Efrem Chapman Specialists: Denies [facility] Insurance: [employer] [facility] Prescription Benefit: Yes LNOK: Mariann (W), Luis (Son) Living Arrangements: Pt lives with his in a single story home with one step to enter ADLs/IADLs: Ind. Pt still works Transportation: Self, . Denies concerns DME: BP Monitor. CPAP. Pt states that she plans to buy a pulse ox after DC and was educated on purchasing options. Pt is currently requiring additional oxygen and may qualify for home oxygen use. A verbal list of local in-network DME companies were provided to the pt at this time. Pt prefers [facility]. HHC/SNF: Denies history Pt?s goal: Return home at time of DC Plan: Anticipate eventual DC home once medically ready. Follow for HH, OP Tx, and/or oxygen needs. Current 6-click score is 18. Therapy evaluation pending and plans to see today per ICU rounds. Pt and pt state that they are hoping for a full recovery. CM to follow PT evaluation and f/u as necessary. Pt and pt deny further questions or concerns at this time. Abisai Jeffrey RN, CM
--- NOTE | 2024-09-07 10:34 | CON.PCM.RE_ITS ---
Assessment & Plan Assessment/Plan (1) Hypercalcemia: (2) Acute kidney injury: (3) Acute hypoxemic respiratory failure: (4) Acute diverticulitis: PLAN: Plan This is a 74-year-old male with past medical history significant for hypertension, HLD, ANA on CPAP, BPH, OA, history of diverticulitis and lower GI bleed with partial colectomy. Admitted for acute hypoxemic respiratory failure, pneumonia, hypercalcemia, [place]. Nephrology consulted in view of hypercalcemia and [place]. On admission (09/05) calcium was 17.3, today calcium has improved to 12.4. Patient has been on IV fluids, lasix; today he received calcitonin and also on 09/06. Received pamidronate on 09/05. Hypercalcemia etiology unclear, SPEP and UPEP are pending; however to note patient was taking a lot of Tums, up to 15 tablets a day before coming to hospital which could have contributed to hypercalcemia. Calcium trends had been normal up until 07/21/2024 where he was noted to have a calcium level of 10.2. Home med triamterene/hydrochlorothiazide on hold. For [place]RA[place] patient has normal baseline creatinine, 07/21/2024 creatinine 0.95, on admission creatinine 2.45 and today his creatinine is at 1.92 mg/dL. Noncontrast CT of abdomen and pelvis normal kidneys, moderate prostamegaly, acute sigmoid diverticulitis, cannot rule out underlying malignancy. CT of chest findings could represent infection and/or edema. Overall renal function and calcium levels improving, patient is nonoliguric, he has good urine output. No acute indication for [employer]. Further workup/orders forthcoming as hospitalization evolves, thank you for allowing us to participate in the care of Mr. Rangel. HPI Consult Data Date of Consult: 09/07/24 HPI Narrative HPI Narrative: IBIS RANGEL, is a 74 M who presented to the emergency room September 05 with complaints of shortness of breath, admitted for pneumonia, acute hypoxic respiratory failure (felt to be from pneumonia) and acute diverticulitis with possible mass, also workup in the emergency room showed calcium of 17.3, creatinine 2.45. Nephrology consulted. Patient has not been seen by nephrology in past. Patient has past medical history significant for hypertension, ANA on CPAP, BPH, OA, history of diverticulitis and lower GI bleed with partial colectomy. Today patient reports he is feeling better overall. Denies any urinary habitus changes before coming to hospital. Patient denies any new medications. Does not take NSAIDs. Patient states for gastric reflux he takes Tums anywhere from 3 tablets daily up to 15 tablets/day and states last week because of feeling unwell had been taking Tums daily up to 15 a day even on Saturday before coming to hospital. [facility] Medical History no medical history Home Medications ?Medication ?Instructions ?Recorded ?Last Taken ?Type rosuvastatin 10 mg tablet 10 mg PO QHS 08/23/24 Unknown History tamsulosin 0.4 mg capsule 0.8 mg PO QDAY 08/23/24 Unknown History triamterene 75 0.5 tab PO DAILY 08/23/24 Unknown History mg-hydrochlorothiazide 50 mg tablet albuterol sulfate 90 mcg/actuation 2 puff inhalation Q6H PRN 09/01/24 Unknown Rx aerosol inhaler shortness of breath or wheezing #8.5 grams levofloxacin 750 mg tablet 750 mg PO Q24H #10 tabs 09/01/24 Unknown Rx Allergy/AdvReac Type Severity Reaction Status Date / Time Penicillins Allergy Severe Rash Verified 09/01/24 14:49 Sulfa (Sulfonamide Allergy Intermediate Rash Verified 09/01/24 14:49 Antibiotics) (sulfa drugs) Social History Smoking Status: Former smoker ROS ROS Narrative As in HPI Physical Exam Narrative Alert, oriented x 3, no apparent distress S1, S2, RRR Lung sounds clear anteriorly, diminished breath sounds posterior bases, on Airvo Abdomen soft, nontender No edema Lab / Micro Data 09/07/24 03:40 09/07/24 03:40 Labs: Laboratory Results - last 24 hr 09/06/24 03:30: Phosphorus 4.0, PTH Intact 5.3 L 09/07/24 03:40: WBC 8.8, RBC 4.04 L, Hgb 12.2 L, Hct 37.6 L, MCV 93.1, MCH 30.2, MCHC 32.4, RDW Std Deviation 42.5, RDW Coeff of Mahendra 12.5, Plt Count 290, MPV 9.1, Immature Gran % (Auto) 0.500, Neut % (Auto) 79.6 H, Lymph % (Auto) 9.7 L, [place] % (Auto) 7.6, Eos % (Auto) 2.3, Baso % (Auto) 0.3, Absolute Neuts (auto) 7.0, Absolute Lymphs (auto) 0.85, Nucleated RBC % 0, Sodium 135 L, Potassium 3.8, Chloride 99, Carbon Dioxide 32.0, Anion Gap 4 L, BUN 32 H, Creatinine 1.92 H, Estim Creat Clear Calc 35.98, Est GFR (MDRD) Af Amer 44 L, Est GFR (MDRD) Non-Af 37 L, BUN/Creatinine Ratio 16.7, Glucose 124 H, Calcium 12.4 H, Phosphorus 2.8, Magnesium 1.3 L, Total Bilirubin 0.40, AST 32, ALT 24, Alkaline Phosphatase 47, Total Protein 6.9, Albumin 2.3 L, Globulin 4.6 H, A lbumin/Globulin Ratio 0.5 L Micro: Microbiology 09/06/24 12:13 Sputum, Expectorated/Coughed Gram Stain - Final Rhythm Strip Rhythm Strip: Sinus Rhythm Rate: 88 Ectopy: PVC(s) Imaging Radiology Impression Chest X-Ray 09/07/24 05:20 IMPRESSION: Findings suggest bilateral multifocal pneumonia. Electronically Signed: Carlee Jeffrey MD at 6:46 EST Reading Location ID and State: [facility] / [place] , Service support ,
[2024-09-07] MEDS: Vancomycin HCl 2,000 MG in 0.9% Normal Saline (500mL Bag) 500 ML 250 MG IV (12:27)
--- NOTE | 2024-09-07 13:28 | PCM.RX.CS ---
Consult Antibiotic Management Pharmacy has been consulted to manage selected antibiotic: Vancomycin Type of Intervention Type of Consult: New start Suspected Infection Suspected Infection: Pneumonia Prior Doses of Antibiotics Prior Doses of Antibiotics Received/Current Regimen: Received 2000mg iv x 1 as loading dose on09.07.24 @1227. Labs Labs: Sodium 135 mmol/L (136-145) L 09/07/24 03:40 Potassium 3.8 mmol/L (3.5-5.1) 09/07/24 03:40 Chloride 99 mmol/L (98-107) 09/07/24 03:40 Carbon Dioxide 32.0 mmol/L (21.0-32.0) 09/07/24 03:40 Anion Gap 4 (5-15) L 09/07/24 03:40 BUN 32 mg/dL (7-18) H 09/07/24 03:40 Creatinine 1.92 mg/dL (0.70-1.30) H 09/07/24 03:40 Est GFR (MDRD) Af Amer 44 mL/min (>60) L 09/07/24 03:40 Est GFR (MDRD) Non-Af 37 mL/min (>60) L 09/07/24 03:40 BUN/Creatinine Ratio 16.7 RATIO (10-20) 09/07/24 03:40 Glucose 124 mg/dL (74-106) H 09/07/24 03:40 Microbiology Microbiology: Microbiology 09/07/24 10:51 Nasal Secretion MRSA (PCR) - Final 09/06/24 12:13 Sputum, Expectorated/Coughed Gram Stain - Final 09/06/24 01:15 Mucosa - Nasopharyngeal Respiratory Panel (PCR) - Final 09/05/24 20:29 Mucosa - Nose SARS-CoV-2, Influenza & RSV (PCR) - Final Dosing Weight Weight used for dosin kg Estimated Creatinine Clearance Estimated Creatinine Clearance: 36 ml/min Goal Trough Goal Trough: 15-20 mcg/mL Pharmacy Plan for Drug Dosing Pharmacy Plan for Drug Dosing: Recommend a starting dose of 1250mg iv q24h. Get a trough level before 3rd total dose per policy. Pharmacy Service will continue to monitor and adjust dosing as required. Follow-Up Labs Follow-Up Labs: Trough: Vancomycin (09.09.24 @1230)
[2024-09-07] MEDS: Acetaminophen 325 MG Tablet 650 MG PO (18:29)
[2024-09-07] MEDS: Senna/Docusate Sodium 1 Tablet 2 TABLET PO (20:37)
[2024-09-08] VITALS (18 sets, daily range): BP systolic 95–135; BP diastolic 56–80; PULSE 55–69; RESP 12–20; TEMP 36.3–36.6; O2SAT 90–96; BMI 27.0
[2024-09-08] MEDS: 0.9% Saline Lock 10 ML Syringe IV ×2 (05:10→22:07)
[2024-09-08] MEDS: Furosemide 40 MG/4 ML Vial IV (05:10)
--- NOTE | 2024-09-08 07:15 | PCM.PN.HOSP ---
Reason for Visit Reason for Visit: Diagnoses Sepsis, unspecified organism (09/05/24) Elevated white blood cell count, unspecified (09/05/24) Overweight (09/05/24) Hypercalcemia (09/05/24) Dehydration (09/05/24) Pneumonia, unspecified organism (09/05/24) Bronchiectasis with acute lower respiratory infection (09/05/24) Acute respiratory failure with hypoxia (09/05/24) Diverticulitis of intestine, part unspecified, without perforation or abscess without bleeding (09/05/24) Acute kidney failure, unspecified (09/05/24) Severe sepsis without septic shock (09/05/24) Objective Data Objective Data Vital Signs: Vital Signs Temp Pulse Resp BP Pulse Ox O2 Del Method O2 Flow Rate 97.6 F L 59 L 17 107/61 96 Nasal Cannula 4 09/08/24 04:00 09/08/24 07:00 09/08/24 07:00 09/08/24 07:00 09/08/24 07:00 09/08/24 07:00 09/08/24 07:00 FiO2 35 09/07/24 14:15 Oxygen Flow Rate (L/min) 4 Oxygen Delivery Method Nasal Cannula Weight: 178 lb 5.663 oz Body Mass Index (BMI) 27.0 Intake & Output: Intake and Output for Last 24 Hours 09/06/24 09/07/24 09/08/24 23:59 23:59 23:59 Intake Total 3683.58 / 3683.58 3725.83 / 3725.83 420 / 420 Output Total 4075 / 4075 3500 / 3500 800 / 800 Balance -391.42 / -391.42 225.83 / 225.83 -380 / -380 Lab / Micro Data 09/08/24 08:45 09/08/24 08:45 Micro: Microbiology 09/07/24 10:51 Nasal Secretion MRSA (PCR) - Final 09/06/24 12:13 Sputum, Expectorated/Coughed Gram Stain - Final 09/06/24 01:15 Mucosa - Nasopharyngeal Respiratory Panel (PCR) - Final 09/05/24 20:29 Mucosa - Nose SARS-CoV-2, Influenza & RSV (PCR) - Final Radiography Diagnostic Testing: Radiology Impression Echocardiogram 09/06/24 13:14 Interpretation Summary The estimated ejection fraction is 60 %. No evidence for diastolic dysfunction. Mild (1+) mitral valve insufficiency. Mild (1+) aortic valve insufficiency. Ordering Physician: Jonathon Cisse Referring Physician: Efrem Chapman Performed By: Nara Neff, RDCS Rhythm Strip Rhythm Strip: Sinus Rhythm Rate: 88 Ectopy: PVC(s) Physical Exam Narrative Seen and examined Overall is feeling better. No acute issues overnight. Patient patient took 15 times a day but his calcium is too high to account for Tums only Physical exam General: Alert, Oriented x3, Cooperative HEENT: Atraumatic, PERRLA, EOMI, Normocephalic Oral: Oral mucosa dry Neck: Supple, No JVD, Negative Carotid Bruits Chest wall/Lungs: Air entry diminished diffusely in bilateral lungs. Bilateral coarse crepitations. Cardiovascular: Sinus rhythm, regular normal S1, Normal S2, No M/G/R Abdomen: Bowel Sounds Present, Soft, Non Tender, Non-Distended : No dysuria. No renal angle tenderness. No suprapubic tenderness. Extremities: No edema, Capillary Refill Less than 3 Seconds Skin: No rashes, No breakdown Musculoskeletal: No Tenderness to Palpation of Joints or Extremities. ROM full. Neurological: Cranial nerves II-XII grossly intact, DTR 2+/4. No acute focal neurological deficit. Psych/Mental Status: Flat affect Assessment & Plan Assessment/Plan (1) Acute diverticulitis: (2) Pneumonia: QUALIFIERS: Laterality: bilateral Lung location: unspecified part of lung Pneumonia type: due to unspecified organism Qualified Code(s): J18.9 - Pneumonia, unspecified organism (3) Sepsis: QUALIFIERS: Acute renal failure type: unspecified Sepsis acute organ dysfunction status: with acute organ dysfunction Sepsis type: sepsis due to unspecified organism Severe sepsis acute organ dysfunction type: acute renal failure Severe sepsis shock status: without septic shock Qualified Code(s): A41.9 - Sepsis, unspecified organism; R65.20 - Severe sepsis without septic shock; N17.9 - Acute kidney failure, unspecified (4) Hypercalcemia: (5) Acute kidney injury: PLAN: Plan 74-year-old gentleman was admitted with 2 week history of being sick with increasing shortness of breath, dyspnea at rest, could not get the urine. Hypoxia pulse ox, mid 50s% and being on CPAP, whole day for 3 days which usually wears at nighttime Fever at home, 102?104 Fahrenheit with chills and shivering. No significant cough but mild cold. 1. Suspected sepsis due to predominantly bilateral pneumonia with history of bronchiectasis and/or sigmoid diverticulitis : Patient is being admitted in ICU. The patient presented with high suspicion of sepsis with clinical indicators of tachycardia, tachypnea, severe hypoxia requiring nonrebreather/Airvo, leukocytosis due to acute sigmoid diverticulitis/bilateral pneumonia with acute sepsis-related organ dysfunction as evidenced by lactic acidosis, SBP drop of more than 40 mmHg, acute hypoxic respiratory failure and lactic acidosis. He also failed outpatient antibiotic treatment x 2 with azithromycin and Levaquin. History of smoking for 8 years about a pack per day Patient was managed as per sepsis protocol with less IV fluid because of concern of fluid overload. Triple PCR for SARS-CoV-2, flu and RSV are negative. Respiratory panel negative. Senior Analyst [employer] and general surgery consulted. 09/07: No fevers since admission. Continue on antibiotic. 09/08: Afebrile. Heart rate in the high 50s to low 60s. Blood pressure in 100s to 110s 09/08: Senior Analyst [employer] note reviewed. Patient is being transferred out of ICU to PCU. 2. Acute hypoxic respiratory failure requiring Airvo: Patient in respiratory distress, using CPAP for last 3 days continuously. Tachypnea. Initially on nonrebreather but then changed to Airvo. ABG reviewed. Initially 7.42/52.5/51 on high flow nasal cannula, 50%. Repeat ABG 7.46/50/64 on 70% high flow nasal cannula. Overall it is mixed acid-base disorder with metabolic alkalosis, bicarb 37 and respiratory acidosis. Elevated D-dimer possible infection/sepsis but when patient hemodynamically stable will need VQ scan 09/07: On 50% FiO2, mild tachypnea and respiratory rate 19 to 20/min. Nasal saline spray and fluticasone ordered 09/08: On 4 L of O2 through nasal cannula. Off Airvo 3. 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 PTH 5.3 low. TSH 0.78. It shows improvement of 14.9. Senior Analyst [employer] ordered calcitonin. 09/07: Calcium improved from 17.3-12.4. Patient had IV calcitonin yesterday. Hypomagnesemia, getting IV magnesium 09/08: Serum calcium is better 11.6 today. Patient has bilateral crepitation there. IV fluid. 4. ISRAEL: Patient admitted with BUN/creatinine 38/2.45. Baseline 21/0.95 in August 11. After decision. There is slight improvement 2.23. CT abdomen/pelvis did not reveal any suspected mass but moderate prostatomegaly. Avoid nephrotoxins. Consult nephrology. 09/07: Creatinine 1.92 improving. 08/2019: BUNs/creatinine 37/1.85. Gradually improving. Fern Gatherer following. 5. Elevated troponin of 197 pg/mL present on admission suspected to be due to Acute Cardiac Strain/demand ischemia from sepsis: Patient denies chest pain or pressure or tightness. Denies chronic cardiac conditions. Rectal aspirin was given. Furosemide was also given possible because of hypercalcemia 09/07: Echo is ordered 6. BPH; on tamsulosin with moderate prostatomegaly on CT scan: 7. Hyperlipidemia; on rosuvastatin - Continue statin. Liver chemistry shows normal transaminases and bilirubin. Fasting profile LDL 25, HDL 36 and 8. Sigmoid diverticulitis: Patient was diagnosed advanced diverticular disease about 10 years ago after he had multiple bloody bowel movements and had colonoscopy. He opted not for surgery. Had self-limited multiple bloody bowel movement last year. Unclear whether there is a stricture/mass. Will need colonoscopy after 4 to 6-week. 09/08: Liquid diet. 9. overweight; with BMI of 27.7 present on admission plus ANA; on CPAP -weight loss recommended. Toe Pounder 10. OA - Give acetaminophen prn. DVT/GI prophylaxis - Heparin 5,000 U sq. BID plus SCD's. Protonix 40 mg IV daily. Charges/Coding Visit Charges Inpatient E&M: 82849 Subs Hosp L3
--- NOTE | 2024-09-08 07:25 | PCM.PN.SRG ---
Subjective Subjective Patient evaluated resting comfortably in bed. He denies any abdominal pain, nausea, vomiting, fever. He is tolerating his full liquid meals well. Objective Data Objective Data Vital Signs: Vital Signs Temp Pulse Resp BP Pulse Ox O2 Del Method O2 Flow Rate 97.6 F L 59 L 17 107/61 96 Nasal Cannula 4 09/08/24 04:00 09/08/24 07:00 09/08/24 07:00 09/08/24 07:00 09/08/24 07:00 09/08/24 07:00 09/08/24 07:00 FiO2 35 09/07/24 14:15 Oxygen Flow Rate (L/min) 4 Oxygen Delivery Method Nasal Cannula Weight: 178 lb 5.663 oz Body Mass Index (BMI) 27.0 Intake & Output: Intake and Output for Last 24 Hours 09/06/24 09/07/24 09/08/24 23:59 23:59 23:59 Intake Total 3683.58 / 3683.58 3725.83 / 3725.83 420 / 420 Output Total 4075 / 4075 3500 / 3500 800 / 800 Balance -391.42 / -391.42 225.83 / 225.83 -380 / -380 Lab / Micro Data 09/08/24 08:45 09/08/24 08:45 Micro: Microbiology 09/07/24 10:51 Nasal Secretion MRSA (PCR) - Final 09/06/24 12:13 Sputum, Expectorated/Coughed Gram Stain - Final 09/06/24 01:15 Mucosa - Nasopharyngeal Respiratory Panel (PCR) - Final 09/05/24 20:29 Mucosa - Nose SARS-CoV-2, Influenza & RSV (PCR) - Final Radiography Diagnostic Testing: Radiology Impression Echocardiogram 09/06/24 13:14 Interpretation Summary The estimated ejection fraction is 60 %. No evidence for diastolic dysfunction. Mild (1+) mitral valve insufficiency. Mild (1+) aortic valve insufficiency. Ordering Physician: Jonathon Cisse Referring Physician: Efrem Chapman Performed By: Nara Neff RDCS Rhythm Strip Rhythm Strip: Sinus Rhythm Rate: 88 Ectopy: PVC(s) Physical Exam GI GI Narrative: Abdomen- soft, nontender Assessment & Plan Assessment/Plan (1) Acute diverticulitis: PLAN: I am following this patient in conjunction with Dr. Vasquez in Dr. Bae's absence. She will independently evaluate this patient. Labs reviewed Patient without any abdominal symptoms related to acute diverticulitis episode No plans for surgical intervention at this time Plan for colonoscopy in [address] Bae Patient may follow-up with Dr. Bae in 1 week from discharge Advance diet as tolerated at this time We will continue to monitor this patient Charges/Coding Visit Charges Inpatient E&M: 42816 Subs Hosp L1
[2024-09-08 08:57] LABS: Absolute Lymphocyte Count 0.71 X10^3/uL (0.83-4.51); Absolute Neutrophil Count 5.7 X10^3/uL (2.0-7.7); Basophil# 0.03 X10^3/uL; Basophil% 0.4 % (0-1); Eosinophil# 0.53 X10^3/uL; Eosinophils% 7.1 % (0-5); Hematocrit 39.5 % (40-54); Hemoglobin 13.2 g/dL (13.0-16.5); Lymphocyte # 0.71 X10^3/ul (0.83-4.51); Lymphocyte % 9.5 % (19-41); Mean Corp Hgb Conc 33.4 g/dL (32-36); Mean Corpuscular Hgb 30.4 pg (27.0-32.0); Mean Platelet Vol. 9.1 fl (6.2-12.0); Monocyte# 0.41 X10^3/uL; Monocyte% 5.5 % (0-10); NRBC Flagged by Analyzer 0 % (0-5); Neutrophil # 5.72 X10^3/uL (2.7-7.7); Neutrophil % 76.8 % (47-70); Platelet Count 293 K/mm3 (150-450); RBC Distribution Width CV 12.3 % (11.6-14.6); Red Blood Count 4.34 M/mm3 (4.6-6.2); White Blood Count 7.5 K/mm3 (4.4-11.0)
[2024-09-08 09:18] LABS: Anion Gap 8 (5-15); BUN 37 mg/dL (7-18); Calcium,Total 11.6 mg/dL (8.5-10.1); Chloride 96 mmol/L (98-107); Creatinine, Serum 1.85 mg/dL (0.70-1.30); EST Glomerular Filtration Rate 38 mL/min (>60); Est Glom Filt Rate - Afr Amer 46 mL/min (>60); Estimated Creatinine Clearance 34.41 ml/min; Glucose 149 mg/dL (74-106); Potassium 2.8 mmol/L (3.5-5.1); Sodium Level 137 mmol/L (136-145)
--- NOTE | 2024-09-08 09:20 | PCM.PN.INT ---
Assessment & Plan Assessment/Plan (1) Acute hypoxemic respiratory failure: PLAN: Plan RECOMMENDATIONS: 1. Supplemental oxygen to maintain saturations at or above 90%. 2. Aggressive electrolyte repletion as ordered. 3. Stop IV Lasix. 4. Continue empiric antimicrobials, pending finalized culture results. 5. Workup for hypercalcemia is pending. 6. Consideration for colonoscopy once respiratory status improves. 7. Dietary advancement as tolerated. 8. The patient is medically stable for transfer out of the intensive care unit. IMPRESSIONS: 1. Acute hypoxemic respiratory failure Clinical concern for underlying pneumonia as precipitating etiology. Plan to continue current supportive measures with IV antimicrobial therapy along with supplemental oxygen to maintain saturations at or above 90%. The patient's loop diuretics will be discontinued today. Antimicrobials will be narrowed based upon cultures and sensitivities. Encourage incentive spirometer use and mobilize patient as tolerated. 2. Hypercalcemia Unclear etiology. The patient has received pamidronate and calcitonin and was maintained on diuretics along with continuous IV fluids, with subsequent improvement in serum calcium level. SPEP and UPEP are currently pending. Okay to discontinue diuretics at this time. 3. Acute kidney injury Improving. Most likely prerenal in etiology. Continue current supportive measures. No current indication for renal replacement therapy. 4. Colonic diverticula with sigmoid lesion Tentative plans for endoscopic evaluation once the patient's respiratory status has been optimized. General surgery is currently following. 5. History of hypertension/obstructive sleep apnea on PAP/history of diverticulitis Complicates care, management, recovery and prognosis. Recommend PAP therapy with naps and nightly. This note was generated with [employer] dictation software. It may contain incorrect words, spelling, and punctuation that were not noted in checking the note before signing. Subjective Subjective The patient was seen and examined at the bedside this morning. Events from the last 24 hours have been reviewed. The patient is currently afebrile, hemodynamically stable and maintaining appropriate oxygen saturations on 4 L/min via nasal cannula. White blood cell count remains normal. Hemoglobin and platelet count are stable. Potassium is low at 2.8 with a bicarbonate of 33 and creatinine of 1.85. Calcium is decreased to 11.6. Objective Data Objective Data The patient's most recent lab work, culture data and imaging studies have all been personally reviewed. Respiratory viral panel was negative. COVID, influenza and RSV PCR's were negative. Blood and sputum cultures are pending. Vital Signs: Vital Signs Temp Pulse Resp BP Pulse Ox O2 Del Method O2 Flow Rate 97.4 F L 60 19 H 105/69 93 Nasal Cannula 4 09/08/24 08:00 09/08/24 08:00 09/08/24 08:00 09/08/24 08:00 09/08/24 08:00 09/08/24 08:00 09/08/24 08:00 FiO2 35 09/07/24 14:15 Oxygen Flow Rate (L/min) 4 Oxygen Delivery Method Nasal Cannula Weight: 178 lb 5.663 oz Body Mass Index (BMI) 27.0 Intake & Output: Intake and Output for Last 24 Hours 09/06/24 09/07/24 09/08/24 23:59 23:59 23:59 Intake Total 3683.58 / 3683.58 3725.83 / 3725.83 420 / 420 Output Total 4075 / 4075 3500 / 3500 800 / 800 Balance -391.42 / -391.42 225.83 / 225.83 -380 / -380 Lab / Micro Data Attestation: I reviewed the patient's lab results. 09/08/24 08:45 09/08/24 08:45 Labs: Laboratory Results - last 24 hr 09/08/24 08:45: WBC 7.5, RBC 4.34 L, Hgb 13.2, Hct 39.5 L, MCV 91.0, MCH 30.4, MCHC 33.4, RDW Std Deviation 41.0, RDW Coeff of Mahendra 12.3, Plt Count 293, MPV 9.1, Immature Gran % (Auto) 0.700, Neut % (Auto) 76.8 H, Lymph % (Auto) 9.5 L, [place] % (Auto) 5.5, Eos % (Auto) 7.1 H, Baso % (Auto) 0.4, Absolute Neuts (auto) 5.7, Absolute Lymphs (auto) 0.71 L, Nucleated RBC % 0, Sodium 137, Potassium 2.8 L, Chloride 96 L, Carbon Dioxide 33.0 H, Anion Gap 8, BUN 37 H, Creatinine 1.85 H, Estim Creat Clear Calc 34.41, Est GFR (MDRD) Af Amer 46 L, Est GFR (MDRD) Non-Af 38 L, BUN/Creatinine Ratio 20.0, Glucose 149 H, Calcium 11.6 H Micro: Microbiology 09/06/24 12:13 Sputum, Expectorated/Coughed Gram Stain - Final 09/06/24 12:13 Sputum, Expectorated/Coughed Respiratory Culture - Preliminary Appears to be normal respiratory miranda. Further studies to follow. 09/07/24 10:51 Nasal Secretion MRSA (PCR) - Final 09/06/24 01:15 Mucosa - Nasopharyngeal Respiratory Panel (PCR) - Final 09/05/24 20:29 Mucosa - Nose SARS-CoV-2, Influenza & RSV (PCR) - Final Radiography Diagnostic Testing: Radiology Impression Echocardiogram 09/06/24 13:14 Interpretation Summary The estimated ejection fraction is 60 %. No evidence for diastolic dysfunction. Mild (1+) mitral valve insufficiency. Mild (1+) aortic valve insufficiency. Ordering Physician: Jonathon Cisse Referring Physician: Efrem Chapman Performed By: Nara Neff RDCS Rhythm Strip Rhythm Strip: Sinus Rhythm Rate: 88 Ectopy: PVC(s) Physical Exam Const alert, oriented x3 and no apparent distress General Appearance: cooperative and ill appearing HEENT normocephalic, head/scalp atraumatic and moist oral mucous membranes Eyes PERRL, EOMs intact bilaterally and conjunctivae normal Neck supple General: trachea midline Chest inspection of chest normal Resp normal respiratory effort Auscultation: rales and diminished lung sounds; Negative for rhonchi or wheezes Cardio regular rate and regular rhythm GI normal to inspection, nondistended, normoactive bowel sounds Extremity no clubbing, cyanosis or edema Skin no rashes or lesions noted Neuro CN's II-XII intact bilaterally, moves all extremities and no focal motor deficits Psych Mood & Affect: flat affect Charges/Coding Visit Charges Inpatient E&M: 88880 Subs Hosp L2
--- NOTE | 2024-09-08 09:22 | CASEMGMT ---
Per ICU rounds, pt is planned for a colonoscopy once the pts acute symptoms resolve. CM to continue to follow for safe DC planning. CM following for HH, OP Tx, CCN, and/or potential oxygen needs.
[2024-09-08] MEDS: Potassium Chloride 10mEq/100mL 10 MEQ/100 ML IV.SOLN. 100 MEQ IV BOLUS ×4 (09:44→13:05)
[2024-09-08] MEDS: Meropenem 1 GM in 0.9% Normal Saline (100mL MB+) 100 ML IV ×2 (09:45→22:07)
[2024-09-08] MEDS: Potassium Chloride Oral Soln 20 MEQ/15 ML UDC 40 MEQ PO (09:45)
[2024-09-08] MEDS: Pantoprazole Sodium 40 MG Tablet PO ×2 (09:46→22:07)
[2024-09-08] MEDS: Tamsulosin HCl 0.4 MG Capsule PO ×2 (09:46→22:07)
[2024-09-08] MEDS: Senna/Docusate Sodium 1 Tablet 2 TABLET PO ×2 (09:46→22:07)
[2024-09-08] MEDS: Heparin Injection (Vial) 5,000 UNIT/ML VIAL 5000 UNIT SC ×2 (09:46→22:07)
[2024-09-08] MEDS: Polyethylene Glycol 3350 17 GM PACKET PO (09:46)
[2024-09-08] MEDS: Fluticasone 0.05% 1 SPRAY NASAL.SRY NASAL ×2 (09:47→22:07)
--- NOTE | 2024-09-08 11:07 | PN.RENAL_ITS ---
Subjective Subjective Patient awake, alert, getting ready to work with physical therapy. No overnight events. Reports feeling better today but is sleepy. at bedside. Objective Data Objective Data Vital Signs: Vital Signs Temp Pulse Resp BP Pulse Ox O2 Del Method O2 Flow Rate 97.4 F L 69 20 H 125/65 H 93 Nasal Cannula 4 09/08/24 10:00 09/08/24 10:00 09/08/24 10:00 09/08/24 10:00 09/08/24 10:00 09/08/24 10:00 09/08/24 10:00 FiO2 35 09/07/24 14:15 Oxygen Flow Rate (L/min) 4 Oxygen Delivery Method Nasal Cannula Weight: 80.9 kg Body Mass Index (BMI) 27.0 Intake & Output: Intake and Output for Last 24 Hours 09/06/24 09/07/24 09/08/24 23:59 23:59 23:59 Intake Total 3683.58 / 3683.58 3725.83 / 3725.83 520 / 520 Output Total 4075 / 4075 3500 / 3500 800 / 800 Balance -391.42 / -391.42 225.83 / 225.83 -280 / -280 Lab / Micro Data 09/08/24 08:45 09/08/24 08:45 Labs: Laboratory Results - last 24 hr 09/08/24 08:45: WBC 7.5, RBC 4.34 L, Hgb 13.2, Hct 39.5 L, MCV 91.0, MCH 30.4, MCHC 33.4, RDW Std Deviation 41.0, RDW Coeff of Mahendra 12.3, Plt Count 293, MPV 9.1, Immature Gran % (Auto) 0.700, Neut % (Auto) 76.8 H, Lymph % (Auto) 9.5 L, [place] % (Auto) 5.5, Eos % (Auto) 7.1 H, Baso % (Auto) 0.4, Absolute Neuts (auto) 5.7, Absolute Lymphs (auto) 0.71 L, Nucleated RBC % 0, Sodium 137, Potassium 2.8 L, Chloride 96 L, Carbon Dioxide 33.0 H, Anion Gap 8, BUN 37 H, Creatinine 1.85 H, Estim Creat Clear Calc 34.41, Est GFR (MDRD) Af Amer 46 L, Est GFR (MDRD) Non-Af 38 L, BUN/Creatinine Ratio 20.0, Glucose 149 H, Calcium 11.6 H Micro: Microbiology 09/05/24 20:40 Blood Culture (Wb) - Left Wrist Blood Culture - Preliminary No growth in 48 hours. 09/05/24 20:30 Blood Culture (Wb) - Anticubital Left Blood Culture - Preliminary No growth in 48 hours. 09/06/24 12:13 Sputum, Expectorated/Coughed Gram Stain - Final 09/06/24 12:13 Sputum, Expectorated/Coughed Respiratory Culture - Preliminary Appears to be normal respiratory miranda. Further studies to follow. 09/07/24 10:51 Nasal Secretion MRSA (PCR) - Final 09/06/24 01:15 Mucosa - Nasopharyngeal Respiratory Panel (PCR) - Final 09/05/24 20:29 Mucosa - Nose SARS-CoV-2, Influenza & RSV (PCR) - Final Radiography Diagnostic Testing: Radiology Impression Echocardiogram 09/06/24 13:14 Interpretation Summary The estimated ejection fraction is 60 %. No evidence for diastolic dysfunction. Mild (1+) mitral valve insufficiency. Mild (1+) aortic valve insufficiency. Ordering Physician: Jonathon Cisse Referring Physician: Efrem Chapman Performed By: Nara Neff RDCS Rhythm Strip Rhythm Strip: Sinus Rhythm Rate: 88 Ectopy: PVC(s) Physical Exam Narrative Alert, oriented x 3, no apparent distress S1, S2, RRR Lung sounds clear anteriorly, diminished breath sounds posterior bases, on nasal cannula Abdomen soft, nontender No edema Clear yellow urine in canister Assessment & Plan Assessment/Plan (1) Hypercalcemia: (2) Acute kidney injury: (3) Acute hypoxemic respiratory failure: (4) Acute diverticulitis: PLAN: Plan This is a 74-year-old male with past medical history significant for hypertension, HLD, ANA on CPAP, BPH, OA, history of diverticulitis and lower GI bleed with partial colectomy. Admitted for acute hypoxemic respiratory failure, pneumonia, hypercalcemia, ISRAEL. Nephrology consulted in view of hypercalcemia and ISRA[place]. On admission (09/05) calcium was 17.3, and creatinine 2.45. -Hypercalcemia; calcium 17.3 on admission --> Ca 11.6 today. SPEP, UPEP pending. Etiology unknown. Patient was initially started on IV fluids and Lasix 40mg IV TID, both were stopped today. Received calcitonin. Received pamidronate on 09/05. PTH low at 5.3. TSH normal. Vitamin D 35.0 on 07/21. Calcium trends had been normal up until 07/21/2024 where he was noted to have a calcium level of 10.2. Home med triamterene/hydrochlorothiazide on hold. Off Tums. - ISRAEL likely from hemodynamics and hypercalcemia; patient has normal baseline creatinine, 07/21/2024 creatinine 0.95. On admission creatinine 2.45 and today his creatinine is at 1.85 mg/dL. Urine output around 3.5 L yesterday. Lasix stopped today. IV fluids stopped. Noncontrast CT of abdomen and pelvis normal kidneys, moderate prostamegaly, acute sigmoid diverticulitis, cannot rule out underlying malignancy. Bps acceptable. ISRAEL slowly improving. -Diverticulitis; surgery team following. Patient on full liquid diet. -Hypokalemia; potassium replacement ordered.
[2024-09-08] MEDS: Vancomycin HCl 1,250 MG in 0.9% Normal Saline (250mL Bag) 250 ML 167 MG IV (13:44)
[2024-09-08] MEDS: Acetaminophen 325 MG Tablet 650 MG PO (13:57)
--- NOTE | 2024-09-08 14:49 | CHAPLAIN ---
Type of Pastoral Visit _x__ Initial Visit ___ Follow-up Visit ___ On-call Visit ___ General Patient Visit ___ Spiritual Assessment ___ Family Conference ___ Bereavement ___ Rapid Response ___ Code Blue ___ Other (describe below) Pastoral Care Referral From _x__ Patient ___ Family ___ Nurse ___ Physician ___ Boilermaker Apprentice ___ Patent Lawyer ___ Other (describe below) Sacrament/Intervention _x__ Active listening ___ Anointing ___ Episcopal ___ Bereavement ___ Communion _x__ Gabriela exploration ___ _x__ Life review _x__ Prayer ___ Reconciliation ___ Sacrament of Sick ___ Supportive presence ___ Wedding ___ Other (describe below) Pastoral Comments patient expresses his gabriela in God and in prayer; pt gives some current health information on how he is doing and also some life review; pt has good support and many people praying per his report; pt states that he is much better today and that if I hadn't come in yesterday I might not be alive now; pt is a man of gabriela with a jew connection; pt welcomes prayer and presence
[2024-09-09] VITALS (8 sets, daily range): BP systolic 105–125; BP diastolic 54–71; PULSE 63–71; RESP 16–20; TEMP 36.4–36.7; O2SAT 92–97; BMI 27.5
[2024-09-09 06:46] LABS: Absolute Lymphocyte Count 0.91 X10^3/uL (0.83-4.51); Absolute Neutrophil Count 5.1 X10^3/uL (2.0-7.7); Basophil# 0.05 X10^3/uL; Basophil% 0.7 % (0-1); Eosinophil# 0.72 X10^3/uL; Eosinophils% 9.6 % (0-5); Hematocrit 37.9 % (40-54); Hemoglobin 12.5 g/dL (13.0-16.5); Lymphocyte # 0.91 X10^3/ul (0.83-4.51); Lymphocyte % 12.1 % (19-41); Mean Corpuscular Hgb 29.9 pg (27.0-32.0); Mean Corpuscular Volume 90.7 fL (80-94); Mean Platelet Vol. 9.4 fl (6.2-12.0); Monocyte# 0.72 X10^3/uL; Monocyte% 9.6 % (0-10); NRBC Flagged by Analyzer 0 % (0-5); Neutrophil # 5.05 X10^3/uL (2.7-7.7); Neutrophil % 67.5 % (47-70); Platelet Count 315 K/mm3 (150-450); RBC Distribution Width CV 12.3 % (11.6-14.6); RBC Distribution Width SD 40.8 fl (35.1-43.9); Red Blood Count 4.18 M/mm3 (4.6-6.2); White Blood Count 7.5 K/mm3 (4.4-11.0)
[2024-09-09 07:15] LABS: Anion Gap 7 (5-15); BUN 34 mg/dL (7-18); BUN/Creat Ratio 20.4 RATIO (10-20); Chloride 98 mmol/L (98-107); Creatinine, Serum 1.67 mg/dL (0.70-1.30); EST Glomerular Filtration Rate 43 mL/min (>60); Est Glom Filt Rate - Afr Amer 52 mL/min (>60); Estimated Creatinine Clearance 41.23 ml/min; Glucose 126 mg/dL (74-106); Sodium Level 136 mmol/L (136-145)
[2024-09-09] MEDS: Fluticasone 0.05% 1 SPRAY NASAL.SRY NASAL ×2 (09:44→21:02)
[2024-09-09] MEDS: Tamsulosin HCl 0.4 MG Capsule PO ×2 (09:44→21:02)
[2024-09-09] MEDS: Heparin Injection (Vial) 5,000 UNIT/ML VIAL 5000 UNIT SC ×2 (09:45→21:02)
[2024-09-09] MEDS: Senna/Docusate Sodium 1 Tablet 2 TABLET PO ×2 (09:45→21:01)
[2024-09-09] MEDS: Pantoprazole Sodium 40 MG Tablet PO ×2 (09:45→21:01)
[2024-09-09] MEDS: Polyethylene Glycol 3350 17 GM PACKET PO (09:45)
[2024-09-09] MEDS: Meropenem 1 GM in 0.9% Normal Saline (100mL MB+) 100 ML IV ×2 (09:51→21:01)
[2024-09-09] MEDS: Potassium Chloride Oral Tablet 20 MEQ 40 MEQ PO ×2 (09:57→13:59)
--- NOTE | 2024-09-09 10:22 | PCM.PN.INT ---
Assessment & Plan Assessment/Plan (1) Acute hypoxemic respiratory failure: PLAN: Plan RECOMMENDATIONS: 1. Supplemental oxygen to maintain saturations at or above 90%. 2. Continue meropenem. Vancomycin will be discontinued. 3. Workup for hypercalcemia is pending. 4. Consideration for colonoscopy once respiratory status improves. 5. Dietary advancement as tolerated. 6. Will sign off from a critical care perspective. Please call with any additional questions. IMPRESSIONS: 1. Acute hypoxemic respiratory failure Improved. Clinical concern for underlying pneumonia as precipitating etiology. Plan to continue current supportive measures with IV antimicrobial therapy along with supplemental oxygen to maintain saturations at or above 90%. The patient will be continued on meropenem with vancomycin to be discontinued. Recommend completing a 7-day treatment course of antibiotics. Encourage incentive spirometer use and mobilize patient as tolerated. 2. Hypercalcemia Unclear etiology. The patient has received pamidronate and calcitonin and was maintained on diuretics along with continuous IV fluids, with subsequent improvement in serum calcium level. SPEP and UPEP are currently pending. 3. Acute kidney injury Improving. Most likely prerenal in etiology. Continue current supportive measures. No current indication for renal replacement therapy. 4. Colonic diverticula with sigmoid lesion Tentative plans for endoscopic evaluation once the patient's respiratory status has been optimized. General surgery is currently following. 5. History of hypertension/obstructive sleep apnea on PAP/history of diverticulitis Complicates care, management, recovery and prognosis. Recommend PAP therapy with naps and nightly. This note was generated with [employer] dictation software. It may contain incorrect words, spelling, and punctuation that were not noted in checking the note before signing. Subjective Subjective The patient was seen and examined at the bedside this morning. Events from the last 24 hours have been reviewed. The patient is currently afebrile, hemodynamically stable and maintaining appropriate oxygen saturations on 2 L/min via nasal cannula. White blood cell count remains normal. Hemoglobin and platelet count are stable. Creatinine has improved to 1.67. The patient does report residual shortness of breath and cough. Objective Data Objective Data The patient's most recent lab work, culture data and imaging studies have all been personally reviewed. Respiratory viral panel was negative. COVID, influenza and RSV PCR's were negative. Blood and sputum cultures have not demonstrated any growth to date. Vital Signs: Vital Signs Temp Pulse Resp BP Pulse Ox O2 Del Method O2 Flow Rate 97.7 F L 71 16 107/54 L 94 Nasal Cannula 2 09/09/24 09:35 09/09/24 09:35 09/09/24 09:35 09/09/24 09:35 09/09/24 09:35 09/09/24 09:35 09/09/24 09:35 FiO2 35 09/07/24 14:15 Oxygen Flow Rate (L/min) 2 Oxygen Delivery Method Nasal Cannula Weight: 181 lb 10.574 oz Body Mass Index (BMI) 27.5 Intake & Output: Intake and Output for Last 24 Hours 09/07/24 09/08/24 09/09/24 23:59 23:59 23:59 Intake Total 3725.83 / 3725.83 1256 / 1256 120 / 120 Output Total 3500 / 3500 1600 / 1600 200 / 200 Balance 225.83 / 225.83 -344 / -344 -80 / -80 Lab / Micro Data Attestation: I reviewed the patient's lab results. 09/09/24 06:01 09/09/24 06:01 Labs: Laboratory Results - last 24 hr 09/09/24 06:01: WBC 7.5, RBC 4.18 L, Hgb 12.5 L, Hct 37.9 L, MCV 90.7, MCH 29.9, MCHC 33.0, RDW Std Deviation 40.8, RDW Coeff of Mahendra 12.3, Plt Count 315, MPV 9.4, Immature Gran % (Auto) 0.500, Neut % (Auto) 67.5, Lymph % (Auto) 12.1 L, [place] % (Auto) 9.6, Eos % (Auto) 9.6 H, Baso % (Auto) 0.7, Absolute Neuts (auto) 5.1, Absolute Lymphs (auto) 0.91, Nucleated RBC % 0, Sodium 136, Potassium 3.0 L, Chloride 98, Carbon Dioxide 30.0, Anion Gap 7, BUN 34 H, Creatinine 1.67 H, Estim Creat Clear Calc 41.23, Est GFR (MDRD) Af Amer 52 L, Est GFR (MDRD) Non-Af 43 L, BUN/Creatinine Ratio 20.4 H, Glucose 126 H, Calcium 11.0 H Micro: Microbiology 09/06/24 12:13 Sputum, Expectorated/Coughed Gram Stain - Final 09/06/24 12:13 Sputum, Expectorated/Coughed Respiratory Culture - Final Mixed normal respiratory miranda. No Streptococcus pneumoniae, beta-hemolytic Streptococcus or Staphylococcus aureus isolated. 09/05/24 20:40 Blood Culture (Wb) - Left Wrist Blood Culture - Preliminary No growth in 48 hours. 09/05/24 20:30 Blood Culture (Wb) - Anticubital Left Blood Culture - Preliminary No growth in 48 hours. 09/07/24 10:51 Nasal Secretion MRSA (PCR) - Final 09/06/24 01:15 Mucosa - Nasopharyngeal Respiratory Panel (PCR) - Final 09/05/24 20:29 Mucosa - Nose SARS-CoV-2, Influenza & RSV (PCR) - Final Radiography Diagnostic Testing: Radiology Impression Echocardiogram 09/06/24 13:14 Interpretation Summary The estimated ejection fraction is 60 %. No evidence for diastolic dysfunction. Mild (1+) mitral valve insufficiency. Mild (1+) aortic valve insufficiency. Ordering Physician: Jonathon Cisse Referring Physician: Efrem Chapman Performed By: Nara Neff RDCS Rhythm Strip Rhythm Strip: Sinus Rhythm Rate: 88 Ectopy: PVC(s) Physical Exam Const alert, oriented x3 and no apparent distress General Appearance: cooperative HEENT normocephalic, head/scalp atraumatic and moist oral mucous membranes Eyes PERRL, EOMs intact bilaterally and conjunctivae normal Neck supple General: trachea midline Chest inspection of chest normal Resp normal respiratory effort Auscultation: diminished lung sounds; Negative for rales, rhonchi or wheezes Cardio regular rate and regular rhythm GI normal to inspection, nondistended, normoactive bowel sounds Extremity no clubbing, cyanosis or edema Skin no rashes or lesions noted Neuro CN's II-XII intact bilaterally, moves all extremities and no focal motor deficits Psych Mood & Affect: flat affect Charges/Coding Visit Charges Inpatient E&M: 72929 Subs Hosp L2
--- NOTE | 2024-09-09 10:48 | PN.SURG_ITS ---
Subjective Subjective Patient evaluated resting comfortably in bed. He denies any abdominal pain, nausea, vomiting. He is tolerating a low fiber diet. Objective Data Objective Data Vital Signs: Vital Signs Temp Pulse Resp BP Pulse Ox O2 Del Method O2 Flow Rate 97.7 F L 71 16 107/54 L 94 Nasal Cannula 2 09/09/24 09:35 09/09/24 09:35 09/09/24 09:35 09/09/24 09:35 09/09/24 09:35 09/09/24 09:35 09/09/24 09:35 FiO2 35 09/07/24 14:15 Oxygen Flow Rate (L/min) 2 Oxygen Delivery Method Nasal Cannula Weight: 181 lb 10.574 oz Body Mass Index (BMI) 27.5 Intake & Output: Intake and Output for Last 24 Hours 09/07/24 09/08/24 09/09/24 23:59 23:59 23:59 Intake Total 3725.83 / 3725.83 1256 / 1256 120 / 120 Output Total 3500 / 3500 1600 / 1600 200 / 200 Balance 225.83 / 225.83 -344 / -344 -80 / -80 Lab / Micro Data 09/09/24 06:01 09/09/24 06:01 Labs: Laboratory Results - last 24 hr 09/09/24 06:01: WBC 7.5, RBC 4.18 L, Hgb 12.5 L, Hct 37.9 L, MCV 90.7, MCH 29.9, MCHC 33.0, RDW Std Deviation 40.8, RDW Coeff of Mahendra 12.3, Plt Count 315, MPV 9.4, Immature Gran % (Auto) 0.500, Neut % (Auto) 67.5, Lymph % (Auto) 12.1 L, [place] % (Auto) 9.6, Eos % (Auto) 9.6 H, Baso % (Auto) 0.7, Absolute Neuts (auto) 5.1, Absolute Lymphs (auto) 0.91, Nucleated RBC % 0, Sodium 136, Potassium 3.0 L , Chloride 98, Carbon Dioxide 30.0, Anion Gap 7, BUN 34 H, Creatinine 1.67 H, Estim Creat Clear Calc 41.23, Est GFR (MDRD) Af Amer 52 L, Est GFR (MDRD) Non-Af 43 L, BUN/Creatinine Ratio 20.4 H, Glucose 126 H, Calcium 11.0 H Micro: Microbiology 09/06/24 12:13 Sputum, Expectorated/Coughed Gram Stain - Final 09/06/24 12:13 Sputum, Expectorated/Coughed Respiratory Culture - Final Mixed normal respiratory miranda. No Streptococcus pneumoniae, beta-hemolytic Streptococcus or Staphylococcus aureus isolated. 09/05/24 20:40 Blood Culture (Wb) - Left Wrist Blood Culture - Preliminary No growth in 48 hours. 09/05/24 20:30 Blood Culture (Wb) - Anticubital Left Blood Culture - Preliminary No growth in 48 hours. 09/07/24 10:51 Nasal Secretion MRSA (PCR) - Final 09/06/24 01:15 Mucosa - Nasopharyngeal Respiratory Panel (PCR) - Final 09/05/24 20:29 Mucosa - Nose SARS-CoV-2, Influenza & RSV (PCR) - Final Rhythm Strip Rhythm Strip: Sinus Rhythm Rate: 88 Ectopy: PVC(s) Physical Exam GI normal to inspection, nondistended, normoactive bowel sounds Assessment & Plan Assessment/Plan (1) Acute diverticulitis: PLAN: I am following this patient in conjunction with Dr. Bae. Labs reviewed Increase diet to include low fiber foods Patient will need to complete a total of 14 day course of antibiotics for treatment of diverticulitis We will follow-up with the patient as an outpatient in 7-10 days after discharge We will follow-up with the patient as needed at this time Charges/Coding Visit Charges Inpatient E&M: 59591 [facility] Hosp L1
[2024-09-09 11:08] LABS: PROEL- A/G Ratio 0.7 (0.7-1.7); PROEL- Albumin 2.4 g/dL (2.9-4.4); PROEL- Alpha-1 Globulin 0.4 g/dL (0.0-0.4); PROEL- Alpha-2 Globulin 0.9 g/dL (0.4-1.0); PROEL- Beta Globulin 0.8 g/dL (0.7-1.3); PROEL- Gamma Globulin 1.4 g/dL (0.4-1.8); PROEL- Globulin, Total 3.5 g/dL (2.2-3.9); PROEL- TOTAL PROTEIN 5.9 g/dL (6.0-8.5); PROEL-M-Spike Comment: g/dL (Not Observed)
[2024-09-09] MEDS: guaiFENesin/D-Methorphan TAB.SR.12H 2 TABLET PO ×2 (11:13→21:01)
--- NOTE | 2024-09-09 13:00 | PN.HOSP_ITS ---
Reason for Visit Reason for Visit: Diagnoses Sepsis, unspecified organism (09/05/24) Elevated white blood cell count, unspecified (09/05/24) Overweight (09/05/24) Hypercalcemia (09/05/24) Dehydration (09/05/24) Pneumonia, unspecified organism (09/05/24) Bronchiectasis with acute lower respiratory infection (09/05/24) Acute respiratory failure with hypoxia (09/05/24) Diverticulitis of intestine, part unspecified, without perforation or abscess without bleeding (09/05/24) Acute kidney failure, unspecified (09/05/24) Severe sepsis without septic shock (09/05/24) Objective Data Objective Data Vital Signs: Vital Signs Temp Pulse Resp BP Pulse Ox O2 Del Method O2 Flow Rate 97.7 F L 71 16 107/54 L 94 Nasal Cannula 2 09/09/24 09:35 09/09/24 09:35 09/09/24 09:35 09/09/24 09:35 09/09/24 09:35 09/09/24 09:35 09/09/24 09:35 FiO2 35 09/07/24 14:15 Oxygen Flow Rate (L/min) 2 Oxygen Delivery Method Nasal Cannula Weight: 181 lb 10.574 oz Body Mass Index (BMI) 27.5 Intake & Output: Intake and Output for Last 24 Hours 09/07/24 09/08/24 09/09/24 23:59 23:59 23:59 Intake Total 3725.83 / 3725.83 1256 / 1256 120 / 120 Output Total 3500 / 3500 1600 / 1600 200 / 200 Balance 225.83 / 225.83 -344 / -344 -80 / -80 Lab / Micro Data 09/09/24 06:01 09/09/24 06:01 Labs: Laboratory Results - last 24 hr 09/06/24 14:10: Total Protein (PEP) 5.9 L, Albumin (PEP) 2.4 L, Globulin (PEP) 3.5, Albumin/Globulin (PEP) 0.7, Jnxnt-6-Kweyhlcua 0.4, Wlgyn-3-Amqllcutn 0.9, Beta Globulins 0.8, Gamma Globulins 1.4, M-Allan Comment:, PEP Note Comment, PEP Interpretation Comment, Urine Total Protein Cancelled, Urine Albumin Cancelled, U Xzmmc-5-Burgbjlv Cancelled, U Cqilc-0-Dtorahjr Cancelled, U Beta Globulin Cancelled, U Gamma Globulin Cancelled, U PEP M-Allan Cancelled, Ur Immunofix PEP Note TNP 09/09/24 06:01: WBC 7.5, RBC 4.18 L, Hgb 12.5 L, Hct 37.9 L, MCV 90.7, MCH 29.9, MCHC 33.0, RDW Std Deviation 40.8, RDW Coeff of Mahendra 12.3, Plt Count 315, MPV 9.4, Immature Gran % (Auto) 0.500, Neut % (Auto) 67.5, Lymph % (Auto) 12.1 L, [place] % (Auto) 9.6, Eos % (Auto) 9.6 H, Baso % (Auto) 0.7, Absolute Neuts (auto) 5.1, Absolute Lymphs (auto) 0.91, Nucleated RBC % 0, Sodium 136, Potassium 3.0 L, Chloride 98, Carbon Dioxide 30.0, Anion Gap 7, BUN 34 H, Creatinine 1.67 H, Estim Creat Clear Calc 41.23, Est GFR (MDRD) Af Amer 52 L, Est GFR (MDRD) Non-Af 43 L, BUN/Creatinine Ratio 20.4 H, Glucose 126 H, C alcium 11.0 H Micro: Microbiology 09/06/24 12:13 Sputum, Expectorated/Coughed Gram Stain - Final 09/06/24 12:13 Sputum, Expectorated/Coughed Respiratory Culture - Final Mixed normal respiratory miranda. No Streptococcus pneumoniae, beta-hemolytic Streptococcus or Staphylococcus aureus isolated. 09/05/24 20:40 Blood Culture (Wb) - Left Wrist Blood Culture - Preliminary No growth in 48 hours. 09/05/24 20:30 Blood Culture (Wb) - Anticubital Left Blood Culture - Preliminary No growth in 48 hours. 09/07/24 10:51 Nasal Secretion MRSA (PCR) - Final 09/06/24 01:15 Mucosa - Nasopharyngeal Respiratory Panel (PCR) - Final 09/05/24 20:29 Mucosa - Nose SARS-CoV-2, Influenza & RSV (PCR) - Final Rhythm Strip Rhythm Strip: Sinus Rhythm Rate: 88 Ectopy: PVC(s) Physical Exam Narrative Seen and examined Patient is stated he has paroxysms of cough. Mucinex DM and Tessalon Perles ordered. Calcium is getting better Physical exam General: Alert, Oriented x3, Cooperative HEENT: Atraumatic, PERRLA, EOMI, Normocephalic Oral: Oral mucosa dry Neck: Supple, No JVD, Negative Carotid Bruits Chest wall/Lungs: Air entry diminished diffusely in bilateral lungs. Mild crepitations but better than yesterday Cardiovascular: Sinus rhythm, regular normal S1, Normal S2, No M/G/R Abdomen: Bowel Sounds Present, Soft, Non Tender, Non-Distended : No dysuria. No renal angle tenderness. No suprapubic tenderness. Extremities: No edema, Capillary Refill Less than 3 Seconds Skin: No rashes, No breakdown Musculoskeletal: No Tenderness to Palpation of Joints or Extremities. ROM full. Neurological: Cranial nerves II-XII grossly intact, DTR 2+/4. No acute focal neurological deficit. Psych/Mental Status: Flat affect Assessment & Plan Assessment/Plan (1) Acute diverticulitis: (2) Pneumonia: QUALIFIERS: Pneumonia type: due to unspecified organism L aterality: bilateral Lung location: unspecified part of lung Qualified Code(s): J18.9 - Pneumonia, unspecified organism (3) Sepsis: QUALIFIERS: Sepsis type: sepsis due to unspecified organism S epsis acute organ dysfunction status: with acute organ dysfunction Severe sepsis acute organ dysfunction type: acute renal failure Acute renal failure type: unspecified Severe sepsis shock status: without septic shock Qualified Code(s): A41.9 - Sepsis, unspecified organism; R65.20 - Severe sepsis without septic shock; N17.9 - Acute kidney failure, unspecified (4) Hypercalcemia: (5) Acute kidney injury: PLAN: Plan 74-year-old gentleman was admitted with 2 week history of being sick with increasing shortness of breath, dyspnea at rest, could not get the urine. Hypoxia pulse ox, mid 50s% and being on CPAP, whole day for 3 days which usually wears at nighttime Fever at home, 102?104 Fahrenheit with chills and shivering. No significant cough but mild cold. 1. Suspected sepsis due to predominantly bilateral pneumonia with history of bronchiectasis and/or sigmoid diverticulitis : Patient is being admitted in ICU. The patient presented with high suspicion of sepsis with clinical indicators of tachycardia, tachypnea, severe hypoxia requiring nonrebreather/Airvo, leukocytosis due to acute sigmoid diverticulitis/bilateral pneumonia with acute sepsis-related organ dysfunction as evidenced by lactic acidosis, SBP drop of more than 40 mmHg, acute hypoxic respiratory failure and lactic acidosis. He also failed outpatient antibiotic treatment x 2 with azithromycin and Levaquin. History of smoking for 8 years about a pack per day Patient was managed as per sepsis protocol with less IV fluid because of concern of fluid overload. Triple PCR for SARS-CoV-2, flu and RSV are negative. Respiratory panel negative. Police Lieutenant Patrol and general surgery consulted. 09/07: No fevers since admission. Continue on antibiotic. 09/08: Afebrile. Heart rate in the high 50s to low 60s. Blood pressure in 100s to 110s 09/08: Police Lieutenant Patrol note reviewed. Patient is being transferred out of ICU to PCU. 09/09: Sepsis resolved. 2. Acute hypoxic respiratory failure requiring Airvo: Patient in respiratory distress, using CPAP for last 3 days continuously. Tachypnea. Initially on nonrebreather but then changed to Airvo. ABG reviewed. Initially 7.42/52.5/51 on high flow nasal cannula, 50%. Repeat ABG 7.46/50/64 on 70% high flow nasal cannula. Overall it is mixed acid-base disorder with metabolic alkalosis, bicarb 37 and respiratory acidosis. Elevated D-dimer possible infection/sepsis but when patient hemodynamically stable will need VQ scan 09/07: On 50% FiO2, mild tachypnea and respiratory rate 19 to 20/min. Nasal saline spray and fluticasone ordered 09/08: On 4 L of O2 through nasal cannula. Off Airvo 09/09: Patient has paroxysms of cough probably from chronic pulmonary disease/bronchiectasis. CT chest was initially reviewed and showed scattered patchy groundglass and reticular opacities with mild intralobular septal thickening with mild bronchiectasis. Mucinex DM and Tessalon Perles ordered 3. 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 PTH 5.3 low. TSH 0.78. It shows improvement of 14.9. [employer] ordered calcitonin. 09/07: Calcium improved from 17.3-12.4. Patient had IV calcitonin yesterday. Hypomagnesemia, getting IV magnesium 09/08: Serum calcium is better 11.6 today. Patient has bilateral crepitation there. IV fluid discontinued 09/09: Serum calcium of 11.0. Driver License Reviewing Officer is following. 4. [place]: Patient admitted with BUN/creatinine 38/2.45. Baseline 21/0.95 in August 11. After decision. There is slight improvement 2.23. CT abdomen/pelvis did not reveal any suspected mass but moderate prostatomegaly. Avoid nephrotoxins. Consult nephrology. 09/07: Creatinine 1.92 improving. 09/08: BUNs/creatinine 37/1.85. Gradually improving. Driver License Reviewing Officer following. 09/09: BUN/creatinine 34/1.67. 5. Elevated troponin of 197 pg/mL present on admission suspected to be due to Acute Cardiac Strain/demand ischemia from sepsis: Patient denies chest pain or pressure or tightness. Denies chronic cardiac conditions. Rectal aspirin was given. Furosemide was also given possible because of hypercalcemia 09/07: Echo is ordered 09/09: Echo shows EF 60% with mild MR and AI. No evidence of diastolic dysfunction. 6. BPH; on tamsulosin with moderate prostatomegaly on CT scan: 7. Hyperlipidemia; on rosuvastatin - Continue statin. Liver chemistry shows normal transaminases and bilirubin. Fasting profile LDL 25, HDL 36 and 8. Sigmoid diverticulitis: Patient was diagnosed advanced diverticular disease about 10 years ago after he had multiple bloody bowel movements and had colonoscopy. He opted not for surgery. Had self-limited multiple bloody bowel movement last year. Unclear whether there is a stricture/mass. Will need colonoscopy after 4 to 6-week. 09/08: Liquid diet. 9. overweight; with BMI of 27.7 present on admission plus ANA; on CPAP -weight loss recommended. [employer] 10. OA - Give acetaminophen prn. DVT/GI prophylaxis - Heparin 5,000 U sq. BID plus SCD's. Protonix 40 mg IV daily. Clinical Impression(s) from Imaging Studies Chest X-Ray 09/05/24 21:20 IMPRESSION: Slight interval worsening in aeration of the lungs. Otherwise, no change from prior study. Electronically Signed: Can Rowan MD at 22:39 EST , Abdomen/Pelvis CT 09/05/24 22:26 IMPRESSION: Acute sigmoid diverticulitis. Cannot rule out underlying malignancy. Recommend colonoscopy after acute infection has resolved. Moderate prostatomegaly. Correlate with PSA levels. Electronically Signed: Can Rowan MD at 23:24 EST Reading Location ID and State: [id number] / [employer] , Service support , Chest CT 09/05/24 22:26 IMPRESSION: Scattered patchy groundglass and reticular opacities with mild intralobular septal thickening.. Findings could represent infection and/or edema. Electronically Signed: Can Rowan MD at 23:21 EST , Echocardiogram 09/06/24 13:14 Interpretation Summary The estimated ejection fraction is 60 %. No evidence for diastolic dysfunction. Mild (1+) mitral valve insufficiency. Mild (1+) aortic valve insufficiency. Chest X-Ray 09/07/24 05:20 IMPRESSION: Findings suggest bilateral multifocal pneumonia. Charges/Coding Visit Charges Inpatient E&M: 48095 Subs Hosp L2
[2024-09-09] MEDS: Benzonatate 100 MG Capsule 200 MG PO ×2 (14:00→21:01)
--- NOTE | 2024-09-09 22:53 | CPS ---
[2214] Pt. placed on his home CPAP unit (+11) with a 3L O2 bleed-in to compensate for pt.'s recent diagnosis of pneumonia.
[2024-09-10] VITALS (9 sets, daily range): BP systolic 118–133; BP diastolic 67–81; PULSE 56–66; RESP 16–18; TEMP 36.3–36.7; O2SAT 86–98; BMI 28.8
--- NOTE | 2024-09-10 | CPS ---
Pt has own CPAP with 3 lpm O2 bleed in.
[2024-09-10 05:12] LABS: Absolute Lymphocyte Count 0.99 X10^3/uL (0.83-4.51); Absolute Neutrophil Count 3.4 X10^3/uL (2.0-7.7); Basophil# 0.05 X10^3/uL; Basophil% 0.9 % (0-1); Eosinophil# 0.65 X10^3/uL; Eosinophils% 11.2 % (0-5); Hematocrit 36.7 % (40-54); Hemoglobin 11.9 g/dL (13.0-16.5); Lymphocyte # 0.99 X10^3/ul (0.83-4.51); Lymphocyte % 17.1 % (19-41); Mean Corp Hgb Conc 32.4 g/dL (32-36); Mean Corpuscular Hgb 29.8 pg (27.0-32.0); Mean Corpuscular Volume 91.8 fL (80-94); Mean Platelet Vol. 9.3 fl (6.2-12.0); Monocyte# 0.65 X10^3/uL; Monocyte% 11.2 % (0-10); NRBC Flagged by Analyzer 0 % (0-5); Neutrophil % 58.6 % (47-70); Platelet Count 295 K/mm3 (150-450); RBC Distribution Width CV 12.3 % (11.6-14.6); RBC Distribution Width SD 41.5 fl (35.1-43.9); White Blood Count 5.8 K/mm3 (4.4-11.0)
[2024-09-10 05:29] LABS: Anion Gap 6 (5-15); BUN 32 mg/dL (7-18); BUN/Creat Ratio 22.7 RATIO (10-20); Calcium,Total 10.4 mg/dL (8.5-10.1); Chloride 104 mmol/L (98-107); Creatinine, Serum 1.41 mg/dL (0.70-1.30); EST Glomerular Filtration Rate 52 mL/min (>60); Est Glom Filt Rate - Afr Amer 63 mL/min (>60); Estimated Creatinine Clearance 48.84 ml/min; Glucose 129 mg/dL (74-106); Potassium 3.5 mmol/L (3.5-5.1); Sodium Level 138 mmol/L (136-145)
[2024-09-10] MEDS: Benzonatate 100 MG Capsule 200 MG PO ×3 (05:33→20:29)
[2024-09-10] MEDS: Meropenem 1 GM in 0.9% Normal Saline (100mL MB+) 100 ML IV ×2 (09:37→21:01)
[2024-09-10] MEDS: 0.9% Saline Lock 10 ML Syringe IV ×2 (09:37→17:59)
[2024-09-10] MEDS: Fluticasone 0.05% 1 SPRAY NASAL.SRY NASAL ×2 (09:38→20:27)
[2024-09-10] MEDS: Tamsulosin HCl 0.4 MG Capsule PO ×2 (09:38→20:32)
[2024-09-10] MEDS: Heparin Injection (Vial) 5,000 UNIT/ML VIAL 5000 UNIT SC ×2 (09:39→20:30)
[2024-09-10] MEDS: guaiFENesin/D-Methorphan TAB.SR.12H 2 TABLET PO ×2 (09:39→20:28)
[2024-09-10] MEDS: Pantoprazole Sodium 40 MG Tablet PO ×2 (09:39→20:28)
[2024-09-10] MEDS: Polyethylene Glycol 3350 17 GM PACKET PO (09:39)
--- NOTE | 2024-09-10 10:07 | PN.RENAL_ITS ---
Subjective Subjective Patient sitting up in bed. at bedside. No complaints today. No overnight events. Objective Data Objective Data Vital Signs: Vital Signs Temp Pulse Resp BP Pulse Ox O2 Del Method O2 Flow Rate 98.1 F 66 18 121/69 H 94 Nasal Cannula 3 09/10/24 09:32 09/10/24 09:32 09/10/24 09:32 09/10/24 09:32 09/10/24 09:32 09/10/24 09:32 09/10/24 09:32 FiO2 35 09/07/24 14:15 Oxygen Flow Rate (L/min) 3 Oxygen Delivery Method Nasal Cannula Weight: 86.3 kg Body Mass Index (BMI) 28.8 Intake & Output: Intake and Output for Last 24 Hours 09/08/24 09/09/24 09/10/24 23:59 23:59 23:59 Intake Total 1256 / 1256 240 / 440 520 / 520 Output Total 1600 / 1600 600 / 1000 400 / 400 Balance -344 / -344 -360 / -560 120 / 120 Lab / Micro Data 09/10/24 04:41 09/10/24 04:41 Labs: Laboratory Results - last 24 hr 09/06/24 14:10: Total Protein (PEP) 5.9 L, Albumin (PEP) 2.4 L, Globulin (PEP) 3.5, Albumin/Globulin (PEP) 0.7, Cviil-1-Hkswmpshl 0.4, Hylnk-6-Sbbiklmcb 0.9, Beta Globulins 0.8, Gamma Globulins 1.4, M-Allan Comment:, PEP Note Comment, PEP Interpretation Comment, Urine Total Protein Cancelled, Urine Albumin Cancelled, U Goixt-6-Htkbthtb Cancelled, U Dbdmy-3-Xysrnmap Cancelled, U Beta Globulin Cancelled, U Gamma Globulin Cancelled, U PEP M-Allan Cancelled, Ur Immunofix PEP Note TNP 09/10/24 04:41: WBC 5.8, RBC 4.00 L, Hgb 11.9 L, Hct 36.7 L, MCV 91.8, MCH 29.8, MCHC 32.4, RDW Std Deviation 41.5, RDW Coeff of Mahendra 12.3, Plt Count 295, MPV 9.3, Immature Gran % (Auto) 1.000 H, Neut % (Auto) 58.6, Lymph % (Auto) 17.1 L, [place] % (Auto) 11.2 H, Eos % (Auto) 11.2 H, Baso % (Auto) 0.9, Absolute Neuts (auto) 3.4, Absolute Lymphs (auto) 0.99, Nucleated RBC % 0, Sodium 138, Potassium 3.5, Chloride 104, Carbon Dioxide 28.0, Anion Gap 6, BUN 32 H, C reatinine 1.41 H, Estim Creat Clear Calc 48.84, Est GFR (MDRD) Af Amer 63, Est GFR (MDRD) Non-Af 52 L, BUN/Creatinine Ratio 22.7 H, Glucose 129 H, Calcium 10.4 H Micro: Microbiology 09/06/24 12:13 Sputum, Expectorated/Coughed Gram Stain - Final 09/06/24 12:13 Sputum, Expectorated/Coughed Respiratory Culture - Final Mixed normal respiratory imranda. No Streptococcus pneumoniae, beta-hemolytic Streptococcus or Staphylococcus aureus isolated. 09/05/24 20:40 Blood Culture (Wb) - Left Wrist Blood Culture - Preliminary No growth in 48 hours. 09/05/24 20:30 Blood Culture (Wb) - Anticubital Left Blood Culture - Preliminary No growth in 48 hours. 09/07/24 10:51 Nasal Secretion MRSA (PCR) - Final 09/06/24 01:15 Mucosa - Nasopharyngeal Respiratory Panel (PCR) - Final 09/05/24 20:29 Mucosa - Nose SARS-CoV-2, Influenza & RSV (PCR) - Final Rhythm Strip Rhythm Strip: Sinus Rhythm Rate: 88 Ectopy: PVC(s) Physical Exam Narrative Alert, oriented x 3, no apparent distress S1, S2, RRR Lung sounds clear anteriorly Abdomen soft, nontender No edema Assessment & Plan Assessment/Plan (1) Hypercalcemia: (2) Acute kidney injury: (3) Acute hypoxemic respiratory failure: (4) Acute diverticulitis: PLAN: Plan This is a 74-year-old male with past medical history significant for hypertension, HLD, ANA on CPAP, BPH, OA, history of diverticulitis and lower GI bleed with partial colectomy. Admitted for acute hypoxemic respiratory failure, pneumonia, hypercalcemia, [place]. Nephrology consulted in view of hypercalcemia and [place]. On admission (09/05) calcium was 17.3, and creatinine 2.45. -Hypercalcemia; calcium 17.3 on admission --> Ca 10.4 today. Etiology unclear at this point. Immunofixation M spike not observed, SPEP shows asymmetrical gamma, faint band in gamma region suspicious for monoclonal immunoglobulin. Will order kappa lambda light chains. Patient was initially started on IV fluids and Lasix 40mg IV TID, both were stopped two days ago. Received calcitonin. Received pamidronate on 09/05. PTH low at 5.3. TSH normal. Vitamin D 35.0 on 07/21. Calcium trends had been normal up until 07/21/2024 where he was noted to have a calcium level of 10.2. Home med triamterene/hydrochlorothiazide on hold. Off Tums. - [place] likely from hemodynamics and hypercalcemia; patient has normal baseline creatinine, 07/21/2024 creatinine 0.95. On admission creatinine 2.45 and today his creatinine is at 1.41 mg/dL. Patient has been nonoliguric. No edema. Noncontrast CT of abdomen and pelvis normal kidneys, moderate prostamegaly, acute sigmoid diverticulitis, cannot rule out underlying malignancy. Bps acceptable. [place] slowly improving. -Diverticulitis; surgery team following. Patient on regular diet -Hypokalemia; resolved. Potassium 3.5 today
--- NOTE | 2024-09-10 10:12 | PN.HOSP_ITS ---
Reason for Visit Reason for Visit: Diagnoses Sepsis, unspecified organism (09/05/24) Elevated white blood cell count, unspecified (09/05/24) Overweight (09/05/24) Hypercalcemia (09/05/24) Dehydration (09/05/24) Pneumonia, unspecified organism (09/05/24) Bronchiectasis with acute lower respiratory infection (09/05/24) Acute respiratory failure with hypoxia (09/05/24) Diverticulitis of intestine, part unspecified, without perforation or abscess without bleeding (09/05/24) Acute kidney failure, unspecified (09/05/24) Severe sepsis without septic shock (09/05/24) Subjective Subjective Patient is a 74-year-old gentleman admitted with progressive shortness of breath generalized weakness as well as fever diagnosed with sepsis secondary to bilateral pneumonia admitted to the intensive care unit managed per protocol and subsequently transferred to progressive care unit once his condition stabilized Objective Data Objective Data Vital Signs: Vital Signs Temp Pulse Resp BP Pulse Ox O2 Del Method O2 Flow Rate 98.1 F 66 18 121/69 H 94 Nasal Cannula 3 09/10/24 09:32 09/10/24 09:32 09/10/24 09:32 09/10/24 09:32 09/10/24 09:32 09/10/24 09:32 09/10/24 09:32 FiO2 35 09/07/24 14:15 Oxygen Flow Rate (L/min) 3 Oxygen Delivery Method Nasal Cannula Weight: 86.3 kg Body Mass Index (BMI) 28.8 Intake & Output: Intake and Output for Last 24 Hours 09/08/24 09/09/24 09/10/24 23:59 23:59 23:59 Intake Total 1256 / 1256 240 / 440 520 / 520 Output Total 1600 / 1600 600 / 1000 400 / 400 Balance -344 / -344 -360 / -560 120 / 120 Lab / Micro Data 09/10/24 04:41 09/10/24 04:41 Labs: Laboratory Results - last 24 hr 09/06/24 14:10: Total Protein (PEP) 5.9 L, Albumin (PEP) 2.4 L, Globulin (PEP) 3.5, Albumin/Globulin (PEP) 0.7, Leikx-1-Ankwqfuzk 0.4, Rgluv-2-Hqnqaefus 0.9, Beta Globulins 0.8, Gamma Globulins 1.4, M-Allan Comment:, PEP Note Comment, PEP Interpretation Comment, Urine Total Protein Cancelled, Urine Albumin Cancelled, U Vqwtb-8-Wjfusoce Cancelled, U Mdgko-5-Rzyjljmm Cancelled, U Beta Globulin Cancelled, U Gamma Globulin Cancelled, U PEP M-Allan Cancelled, Ur Immunofix PEP Note TNP 09/10/24 04:41: WBC 5.8, RBC 4.00 L, Hgb 11.9 L, Hct 36.7 L, MCV 91.8, MCH 29.8, MCHC 32.4, RDW Std Deviation 41.5, RDW Coeff of Mahendra 12.3, Plt Count 295, MPV 9.3, Immature Gran % (Auto) 1.000 H, Neut % (Auto) 58.6, Lymph % (Auto) 17.1 L, [place] % (Auto) 11.2 H, Eos % (Auto) 11.2 H, Baso % (Auto) 0.9, Absolute Neuts (auto) 3.4, Absolute Lymphs (auto) 0.99, Nucleated RBC % 0, Sodium 138, Potassium 3.5, Chloride 104, Carbon Dioxide 28.0, Anion Gap 6, BUN 32 H, C reatinine 1.41 H, Estim Creat Clear Calc 48.84, Est GFR (MDRD) Af Amer 63, Est GFR (MDRD) Non-Af 52 L, BUN/Creatinine Ratio 22.7 H, Glucose 129 H, Calcium 10.4 H Micro: Microbiology 09/06/24 12:13 Sputum, Expectorated/Coughed Gram Stain - Final 09/06/24 12:13 Sputum, Expectorated/Coughed Respiratory Culture - Final Mixed normal respiratory imranda. No Streptococcus pneumoniae, beta-hemolytic Streptococcus or Staphylococcus aureus isolated. 09/05/24 20:40 Blood Culture (Wb) - Left Wrist Blood Culture - Preliminary No growth in 48 hours. 09/05/24 20:30 Blood Culture (Wb) - Anticubital Left Blood Culture - Preliminary No growth in 48 hours. 09/07/24 10:51 Nasal Secretion MRSA (PCR) - Final 09/06/24 01:15 Mucosa - Nasopharyngeal Respiratory Panel (PCR) - Final 09/05/24 20:29 Mucosa - Nose SARS-CoV-2, Influenza & RSV (PCR) - Final Rhythm Strip Rhythm Strip: Sinus Rhythm Rate: 88 Ectopy: PVC(s) Physical Exam Narrative GENERAL: cooperative, somewhat dyspneic at rest HEENT: Atraumatic; normocephalic EYES; Anicteric, Normal Conjunctiva NECK; supple, normal thyroid, RESPIRATORY: Diminished to auscultation CARDIOVASCULAR: Regular S1 S2, GI: soft, normoactive bowel sounds, : No Renal angle tenderness; EXTREMITIES: No edema, no clubbing, MUSCULOSKELETAL: no muscle wasting NEURO: Awake; no lateralizing signs. SKIN: No Rash PSYCH; Flat affect Assessment & Plan Assessment/Plan (1) Acute diverticulitis: (2) Pneumonia: QUALIFIERS: Pneumonia type: due to unspecified organism L aterality: bilateral Lung location: unspecified part of lung Qualified Code(s): J18.9 - Pneumonia, unspecified organism (3) Sepsis: QUALIFIERS: Sepsis type: sepsis due to unspecified organism S epsis acute organ dysfunction status: with acute organ dysfunction Severe sepsis acute organ dysfunction type: acute renal failure Acute renal failure type: unspecified Severe sepsis shock status: without septic shock Qualified Code(s): A41.9 - Sepsis, unspecified organism; R65.20 - Severe sepsis without septic shock; N17.9 - Acute kidney failure, unspecified (4) Hypercalcemia: (5) Acute kidney injury: PLAN: Plan Patient is a 74-year-old gentleman admitted with progressive shortness of breath generalized weakness as well as fever diagnosed with sepsis secondary to bilateral pneumonia admitted to the intensive care unit managed per protocol and subsequently transferred to progressive care unit once his condition stabilized 1. Suspected sepsis due to predominantly bilateral pneumonia -with history of bronchiectasis and/or sigmoid diverticulitis : Patient is being admitted in ICU. The patient presented with high suspicion of sepsis with clinical indicators of tachycardia, tachypnea, severe hypoxia requiring nonrebreather/Airvo, leukocytosis due to acute sigmoid diverticulitis/bilateral pneumonia with acute sepsis-related organ dysfunction as evidenced by lactic acidosis, SBP drop of more than 40 mmHg, acute hypoxic respiratory failure and lactic acidosis. He also failed outpatient antibiotic treatment x 2 with azithromycin and Levaquin. History of smoking for 8 years about a pack per day Patient was managed as per sepsis protocol with less IV fluid because of concern of fluid overload. Triple PCR for SARS-CoV-2, flu and RSV are negative. Respiratory panel negative. Hoseman and general surgery consulted. 09/07: No fevers since admission. Continue on antibiotic. 09/08: Afebrile. Heart rate in the high 50s to low 60s. Blood pressure in 100s to 110s 09/08: Hoseman note reviewed. Patient is being transferred out of ICU to PCU. 09/09: Sepsis resolved. 2. Acute hypoxic respiratory failure requiring Airvo Patient in respiratory distress, using CPAP for last 3 days continuously. Tachypnea. Initially on nonrebreather but then changed to Airvo. ABG reviewed. Initially 7.42/52.5/51 on high flow nasal cannula, 50%. Repeat ABG 7.46/50/64 on 70% high flow nasal cannula. Overall it is mixed acid-base disorder with metabolic alkalosis, bicarb 37 and respiratory acidosis. Elevated D-dimer possible infection/sepsis but when patient hemodynamically stable will need VQ scan 09/07: On 50% FiO2, mild tachypnea and respiratory rate 19 to 20/min. Nasal saline spray and fluticasone ordered 09/08: On 4 L of O2 through nasal cannula. Off Airvo 09/09: Patient has paroxysms of cough probably from chronic pulmonary disease/bronchiectasis. CT chest was initially reviewed and showed scattered patchy groundglass and reticular opacities with mild intralobular septal thickening with mild bronchiectasis. Mucinex DM and Tessalon Perles ordered ? 09/10/2023;Patient oxygen requirement improving currently on 3 L flow per minute plan is for patient to be assessed for home oxygen requirement prior to discharge 3. 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 PTH 5.3 low. TSH 0.78. It shows improvement of 14.9. Hoseman ordered calcitonin. 09/07: Calcium improved from 17.3-12.4. Patient had IV calcitonin yesterday. Hypomagnesemia, getting IV magnesium 09/08: Serum calcium is better 11.6 today. Patient has bilateral crepitation there. IV fluid discontinued 09/09: Serum calcium of 11.0. Manager Of Manufacturing is following. 09/10/2024; patient HCTZ discontinued given the side effect of hypercalcemia 4. [place] - Patient admitted with BUN/creatinine 38/2.45. Baseline 21/0.95 in August 11. After decision. There is slight improvement 2.23. CT abdomen/pelvis did not reveal any suspected mass but moderate prostatomegaly. Avoid nephrotoxins. Consult nephrology. 09/07: Creatinine 1.92 improving. 09/08: BUNs/creatinine 37/1.85. Gradually improving. Manager Of Manufacturing following. 09/09: BUN/creatinine 34/1.67. 5. Elevated troponin of 197 pg/mL present on admission -suspected to be due to Acute Cardiac Strain/demand ischemia from sepsis: Patient denies chest pain or pressure or tightness. Denies chronic cardiac conditions. Rectal aspirin was given. Furosemide was also given possible because of hypercalcemia 09/07: Echo is ordered 09/09: Echo shows EF 60% with mild MR and AI. No evidence of diastolic dysfunction. 6. BPH with lower urinary obstructive symptoms - Patient treated with tamsulosin. CT demonstrated moderate prostamegaly 7. Dyslipidemia ?Patient is on statin therapy, continued at home dose 8. Sigmoid diverticulitis - Patient was diagnosed advanced diverticular disease about 10 years ago after he had multiple bloody bowel movements and had colonoscopy. He opted not for surgery. Had self-limited multiple bloody bowel movement last year. Unclear whether there is a stricture/mass. Will need colonoscopy after 4 to 6-week. 09/08: Liquid diet. 9. Obstructive sleep apnea ? Patient is on CPAP at night 10. DVT prophylaxis Subcu heparin Clinical Impression(s) from Imaging Studies Chest X-Ray 09/05/24 21:20 IMPRESSION: Slight interval worsening in aeration of the lungs. Otherwise, no change from prior study. Abdomen/Pelvis CT 09/05/24 22:26 IMPRESSION: Acute sigmoid diverticulitis. Cannot rule out underlying malignancy. Recommend colonoscopy after acute infection has resolved. Moderate prostatomegaly. Correlate with PSA levels. Chest CT 09/05/24 22:26 IMPRESSION: Scattered patchy groundglass and reticular opacities with mild intralobular septal thickening.. Findings could represent infection and/or edema. Echocardiogram 09/06/24 13:14 Interpretation Summary The estimated ejection fraction is 60 %. No evidence for diastolic dysfunction. Mild (1+) mitral valve insufficiency. Mild (1+) aortic valve insufficiency. Chest X-Ray 09/07/24 05:20 IMPRESSION: Findings suggest bilateral multifocal pneumonia. Time spent in the patient's overall evaluation,decision-making process, review of diagnostic data, adjustment of management, discussion with other providers, nursing nursing and ancillary staff involved in patient's care documentation, 53 Minutes Charges/Coding Visit Charges Inpatient E&M: 27338 Subs Hosp L3
[2024-09-10] MEDS: Acetaminophen 325 MG Tablet 650 MG PO (20:28)
[2024-09-10] MEDS: Senna/Docusate Sodium 1 Tablet 2 TABLET PO (20:29)
[2024-09-11 03:00] VITALS: BP 122/79; PULSE 59; RESP 16; TEMP 36.6; O2SAT 94
[2024-09-11 05:00] VITALS: PULSE 60; RESP 16
[2024-09-11] MEDS: Acetaminophen 325 MG Tablet 650 MG PO (05:09)
[2024-09-11] MEDS: Benzonatate 100 MG Capsule 200 MG PO (05:09)
[2024-09-11 05:48] VITALS: BMI 28.9
[2024-09-11 05:49] LABS: Absolute Lymphocyte Count 1.09 X10^3/uL (0.83-4.51); Absolute Neutrophil Count 3.4 X10^3/uL (2.0-7.7); Basophil# 0.06 X10^3/uL; Eosinophil# 0.67 X10^3/uL; Eosinophils% 10.8 % (0-5); Hematocrit 34.9 % (40-54); Hemoglobin 11.7 g/dL (13.0-16.5); Lymphocyte # 1.09 X10^3/ul (0.83-4.51); Lymphocyte % 17.6 % (19-41); Mean Corp Hgb Conc 33.5 g/dL (32-36); Mean Corpuscular Hgb 30.6 pg (27.0-32.0); Mean Corpuscular Volume 91.4 fL (80-94); Mean Platelet Vol. 9.2 fl (6.2-12.0); Monocyte# 0.88 X10^3/uL; Monocyte% 14.2 % (0-10); NRBC Flagged by Analyzer 0 % (0-5); Neutrophil # 3.41 X10^3/uL (2.7-7.7); Neutrophil % 54.9 % (47-70); Platelet Count 289 K/mm3 (150-450); RBC Distribution Width CV 12.3 % (11.6-14.6); RBC Distribution Width SD 41.1 fl (35.1-43.9); Red Blood Count 3.82 M/mm3 (4.6-6.2); White Blood Count 6.2 K/mm3 (4.4-11.0)
[2024-09-11 06:23] LABS: Anion Gap 3 (5-15); BUN 32 mg/dL (7-18); Calcium,Total 9.7 mg/dL (8.5-10.1); Chloride 105 mmol/L (98-107); Creatinine, Serum 1.28 mg/dL (0.70-1.30); EST Glomerular Filtration Rate 59 mL/min (>60); Est Glom Filt Rate - Afr Amer 71 mL/min (>60); Estimated Creatinine Clearance 54.93 ml/min; Glucose 105 mg/dL (74-106); Magnesium 1.6 mg/dL (1.6-2.6); Potassium 3.9 mmol/L (3.5-5.1); Sodium Level 137 mmol/L (136-145)
[2024-09-11 06:37] LABS: Phosphorus 1.9 mg/dL (2.5-4.9)
--- NOTE | 2024-09-11 07:44 | PCM.PN.HOSP ---
Reason for Visit Reason for Visit: Diagnoses Sepsis, unspecified organism (09/05/24) Elevated white blood cell count, unspecified (09/05/24) Overweight (09/05/24) Hypercalcemia (09/05/24) Dehydration (09/05/24) Pneumonia, unspecified organism (09/05/24) Bronchiectasis with acute lower respiratory infection (09/05/24) Acute respiratory failure with hypoxia (09/05/24) Diverticulitis of intestine, part unspecified, without perforation or abscess without bleeding (09/05/24) Acute kidney failure, unspecified (09/05/24) Severe sepsis without septic shock (09/05/24) Subjective Subjective Patient seen clinical condition improved plan is for patient to be assessed for discharge Objective Data Objective Data Vital Signs: Vital Signs Temp Pulse Resp BP Pulse Ox O2 Del Method O2 Flow Rate 97.8 F 60 16 122/79 H 94 Nasal Cannula 3 09/11/24 03:00 09/11/24 05:00 09/11/24 05:00 09/11/24 03:00 09/11/24 03:00 09/11/24 05:00 09/11/24 05:00 FiO2 35 09/07/24 14:15 Oxygen Flow Rate (L/min) 3 Oxygen Delivery Method Nasal Cannula Weight: 86.3 kg Body Mass Index (BMI) 28.9 Intake & Output: Intake and Output for Last 24 Hours 09/09/24 09/10/24 09/11/24 23:59 23:59 23:59 Intake Total 240 / 440 640 / 640 120 / 120 Output Total 600 / 1000 400 / 400 Balance -360 / -560 240 / 240 120 / 120 Lab / Micro Data 09/11/24 05:24 09/11/24 05:24 Labs: Laboratory Results - last 24 hr 09/11/24 05:24: WBC 6.2, RBC 3.82 L, Hgb 11.7 L, Hct 34.9 L, MCV 91.4, MCH 30.6, MCHC 33.5, RDW Std Deviation 41.1, RDW Coeff of Mahendra 12.3, Plt Count 289, MPV 9.2, Immature Gran % (Auto) 1.500 H, Neut % (Auto) 54.9, Lymph % (Auto) 17.6 L, [place] % (Auto) 14.2 H, Eos % (Auto) 10.8 H, Baso % (Auto) 1.0, Absolute Neuts (auto) 3.4, Absolute Lymphs (auto) 1.09, Nucleated RBC % 0, Sodium 137, Potassium 3.9, Chloride 105, Carbon Dioxide 29.0, Anion Gap 3 L, BUN 32 H, Creatinine 1.28, Estim Creat Clear Calc 54.93, Est GFR (MDRD) Af Amer 71, Est GFR (MDRD) Non-Af 59 L, BUN/Creatinine Ratio 25.0 H, Glucose 105, Calcium 9.7, Phosphorus 1.9 L, Magnesium 1.6 Micro: Microbiology 09/06/24 12:13 Sputum, Expectorated/Coughed Gram Stain - Final 09/06/24 12:13 Sputum, Expectorated/Coughed Respiratory Culture - Final Mixed normal respiratory miranda. No Streptococcus pneumoniae, beta-hemolytic Streptococcus or Staphylococcus aureus isolated. 09/05/24 20:40 Blood Culture (Wb) - Left Wrist Blood Culture - Preliminary No growth in 48 hours. 09/05/24 20:30 Blood Culture (Wb) - Anticubital Left Blood Culture - Preliminary No growth in 48 hours. 09/07/24 10:51 Nasal Secretion MRSA (PCR) - Final 09/06/24 01:15 Mucosa - Nasopharyngeal Respiratory Panel (PCR) - Final 09/05/24 20:29 Mucosa - Nose SARS-CoV-2, Influenza & RSV (PCR) - Final Rhythm Strip Rhythm Strip: Sinus Rhythm Rate: 88 Ectopy: PVC(s) Physical Exam Narrative GENERAL: cooperative, somewhat dyspneic at rest HEENT: Atraumatic; normocephalic EYES; Anicteric, Normal Conjunctiva NECK; supple, normal thyroid, RESPIRATORY: Diminished to auscultation CARDIOVASCULAR: Regular S1 S2, GI: soft, normoactive bowel sounds, : No Renal angle tenderness; EXTREMITIES: No edema, no clubbing, MUSCULOSKELETAL: no muscle wasting NEURO: Awake; no lateralizing signs. SKIN: No Rash PSYCH; Flat affect Assessment & Plan Assessment/Plan (1) Acute diverticulitis: (2) Pneumonia: QUALIFIERS: Laterality: bilateral Lung location: unspecified part of lung Pneumonia type: due to unspecified organism Qualified Code(s): J18.9 - Pneumonia, unspecified organism (3) Sepsis: QUALIFIERS: Acute renal failure type: unspecified Sepsis acute organ dysfunction status: with acute organ dysfunction Sepsis type: sepsis due to unspecified organism Severe sepsis acute organ dysfunction type: acute renal failure Severe sepsis shock status: without septic shock Qualified Code(s): A41.9 - Sepsis, unspecified organism; R65.20 - Severe sepsis without septic shock; N17.9 - Acute kidney failure, unspecified (4) Hypercalcemia: (5) Acute kidney injury: PLAN: Plan Patient is a 74-year-old gentleman admitted with progressive shortness of breath generalized weakness as well as fever diagnosed with sepsis secondary to bilateral pneumonia admitted to the intensive care unit managed per protocol and subsequently transferred to progressive care unit once his condition stabilized 1. Suspected sepsis due to predominantly bilateral pneumonia -with history of bronchiectasis and/or sigmoid diverticulitis : Patient is being admitted in ICU. The patient presented with high suspicion of sepsis with clinical indicators of tachycardia, tachypnea, severe hypoxia requiring nonrebreather/Airvo, leukocytosis due to acute sigmoid diverticulitis/bilateral pneumonia with acute sepsis-related organ dysfunction as evidenced by lactic acidosis, SBP drop of more than 40 mmHg, acute hypoxic respiratory failure and lactic acidosis. He also failed outpatient antibiotic treatment x 2 with azithromycin and Levaquin. History of smoking for 8 years about a pack per day Patient was managed as per sepsis protocol with less IV fluid because of concern of fluid overload. Triple PCR for SARS-CoV-2, flu and RSV are negative. Respiratory panel negative. Coordinator Skill Training Program and general surgery consulted. 09/07: No fevers since admission. Continue on antibiotic. 09/08: Afebrile. Heart rate in the high 50s to low 60s. Blood pressure in 100s to 110s 09/08: Coordinator Skill Training Program note reviewed. Patient is being transferred out of ICU to PCU. 09/09: Sepsis resolved. 2. Acute hypoxic respiratory failure requiring Airvo Patient in respiratory distress, using CPAP for last 3 days continuously. Tachypnea. Initially on nonrebreather but then changed to Airvo. ABG reviewed. Initially 7.42/52.5/51 on high flow nasal cannula, 50%. Repeat ABG 7.46/50/64 on 70% high flow nasal cannula. Overall it is mixed acid-base disorder with metabolic alkalosis, bicarb 37 and respiratory acidosis. Elevated D-dimer possible infection/sepsis but when patient hemodynamically stable will need VQ scan 09/07: On 50% FiO2, mild tachypnea and respiratory rate 19 to 20/min. Nasal saline spray and fluticasone ordered 09/08: On 4 L of O2 through nasal cannula. Off Airvo 09/09: Patient has paroxysms of cough probably from chronic pulmonary disease/bronchiectasis. CT chest was initially reviewed and showed scattered patchy groundglass and reticular opacities with mild intralobular septal thickening with mild bronchiectasis. Mucinex DM and Tessalon Perles ordered ? 09/10/2023;Patient oxygen requirement improving currently on 3 L flow per minute plan is for patient to be assessed for home oxygen requirement prior to discharge 3. 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 PTH 5.3 low. TSH 0.78. It shows improvement of 14.9. Coordinator Skill Training Program ordered calcitonin. 09/07: Calcium improved from 17.3-12.4. Patient had IV calcitonin yesterday. Hypomagnesemia, getting IV magnesium 09/08: Serum calcium is better 11.6 today. Patient has bilateral crepitation there. IV fluid discontinued 09/09: Serum calcium of 11.0. Fitter Type Bar And Segment is following. 09/10/2024; patient HCTZ discontinued given the side effect of hypercalcemia 4. [place] - Patient admitted with BUN/creatinine 38/2.45. Baseline 21/0.95 in August 11. After decision. There is slight improvement 2.23. CT abdomen/pelvis did not reveal any suspected mass but moderate prostatomegaly. Avoid nephrotoxins. Consult nephrology. 09/07: Creatinine 1.92 improving. 09/08: BUNs/creatinine 37/1.85. Gradually improving. Fitter Type Bar And Segment following. 09/09: BUN/creatinine 34/1.67. 5. Elevated troponin of 197 pg/mL present on admission -suspected to be due to Acute Cardiac Strain/demand ischemia from sepsis: Patient denies chest pain or pressure or tightness. Denies chronic cardiac conditions. Rectal aspirin was given. Furosemide was also given possible because of hypercalcemia 09/07: Echo is ordered 09/09: Echo shows EF 60% with mild MR and AI. No evidence of diastolic dysfunction. 6. BPH with lower urinary obstructive symptoms - Patient treated with tamsulosin. CT demonstrated moderate prostamegaly 7. Dyslipidemia ?Patient is on statin therapy, continued at home dose 8. Sigmoid diverticulitis - Patient was diagnosed advanced diverticular disease about 10 years ago after he had multiple bloody bowel movements and had colonoscopy. He opted not for surgery. Had self-limited multiple bloody bowel movement last year. Unclear whether there is a stricture/mass. Will need colonoscopy after 4 to 6-week. 09/08: Liquid diet. ? 09/11/2024 symptoms improved patient informed on the need to follow-up with primary care physician for patient to be referred to GI for outpatient: 9. Obstructive sleep apnea ? Patient is on CPAP at night 10. DVT prophylaxis Subcu heparin Time spent in the patient's overall evaluation,decision-making process, review of diagnostic data, adjustment of management, discussion with other providers, nursing nursing and ancillary staff involved in patient's care documentation, 36 Minutes
[2024-09-11] MEDS: Polyethylene Glycol 3350 17 GM PACKET PO (10:01)
[2024-09-11] MEDS: guaiFENesin/D-Methorphan TAB.SR.12H 2 TABLET PO (10:01)
[2024-09-11] MEDS: Pantoprazole Sodium 40 MG Tablet PO (10:02)
[2024-09-11] MEDS: 0.9% Saline Lock 10 ML Syringe IV (10:02)
[2024-09-11] MEDS: Tamsulosin HCl 0.4 MG Capsule PO (10:02)
[2024-09-11] MEDS: Heparin Injection (Vial) 5,000 UNIT/ML VIAL 5000 UNIT SC (10:02)
[2024-09-11] MEDS: Fluticasone 0.05% 1 SPRAY NASAL.SRY NASAL (10:02)
[2024-09-11 10:08] VITALS: BP 114/86; PULSE 61; RESP 18; TEMP 36.4; O2SAT 97
[2024-09-11 10:20] VITALS: BP 123/73; PULSE 60; RESP 18; TEMP 36.6; O2SAT 97
--- NOTE | 2024-09-11 10:21 | PCM.DC.SUM ---
Providers Date of Admission: 09/05/24 Date of Discharge: 09/11/24 Primary Care Physician: Dr. Efrem Chapman MD Consultations 09/05/24 23:54 Consult: General Surgery Routine Consulting Provider: Junior Bae Reason for Consult: Acute Divericulitis with Mass and Hypercalcemia. EMERGENT Consult: No Notified: No Date Notified: 09/05/24 Time Notified: 23:55 09/06/24 08:19 Consult: Mdm Developer / Pulmonary Medicine Routine Consulting Provider: Intensivists/Pulmonary Med Reason for Consult: sepsis, Pulmonary infection EMERGENT Consult: No Notified: Yes Date Notified: 09/06/24 Time Notified: 08:19 Method of Notification: Text 09/06/24 12:08 Consult: Nephrology Routine Consulting Provider: Yeimy Johnson Reason for Consult: [place], sepsis EMERGENT Consult: No Notified: Yes Date Notified: 09/06/24 Time Notified: 12:08 Method of Notification: Text 09/07/24 07:49 Consult: General Surgery Routine Consulting Provider: Junior Bae Reason for Consult: sigmoid colitis/deverticulitis EMERGENT Consult: No Notified: Yes Date Notified: 09/06/24 Time Notified: 07:21 Method of Notification: ED Physician Initiated Reason For Visit: SEPSIS, DIVERTICULITIS & PNA WITH HYPERCALCEMIA Diagnosis Discharge Diagnosis (1) Acute diverticulitis: Status: Acute Code(s): K57.92 - Diverticulitis of intestine, part unspecified, without perforation or abscess without bleeding (2) Pneumonia: Status: Acute Code(s): J18.9 - Pneumonia, unspecified organism Qualifiers: Laterality: bilateral Lung location: unspecified part of lung Pneumonia type: due to unspecified organism Qualified Code(s): J18.9 - Pneumonia, unspecified organism (3) Sepsis: Status: Acute Code(s): A41.9 - Sepsis, unspecified organism Qualifiers: Acute renal failure type: unspecified Sepsis acute organ dysfunction status: with acute organ dysfunction Sepsis type: sepsis due to unspecified organism Severe sepsis acute organ dysfunction type: acute renal failure Severe sepsis shock status: without septic shock Qualified Code(s): A41.9 - Sepsis, unspecified organism; R65.20 - Severe sepsis without septic shock; N17.9 - Acute kidney failure, unspecified (4) Hypercalcemia: Status: Acute Code(s): E83.52 - Hypercalcemia (5) Acute kidney injury: Status: Acute Code(s): N17.9 - Acute kidney failure, unspecified Plan Patient is a 74-year-old gentleman admitted with progressive shortness of breath generalized weakness as well as fever diagnosed with sepsis secondary to bilateral pneumonia admitted to the intensive care unit managed per protocol and subsequently transferred to progressive care unit once his condition stabilized 1. Suspected sepsis due to predominantly bilateral pneumonia -with history of bronchiectasis and/or sigmoid diverticulitis : Patient is being admitted in ICU. The patient presented with high suspicion of sepsis with clinical indicators of tachycardia, tachypnea, severe hypoxia requiring nonrebreather/Airvo, leukocytosis due to acute sigmoid diverticulitis/bilateral pneumonia with acute sepsis-related organ dysfunction as evidenced by lactic acidosis, SBP drop of more than 40 mmHg, acute hypoxic respiratory failure and lactic acidosis. He also failed outpatient antibiotic treatment x 2 with azithromycin and Levaquin. History of smoking for 8 years about a pack per day Patient was managed as per sepsis protocol with less IV fluid because of concern of fluid overload. Triple PCR for SARS-CoV-2, flu and RSV are negative. Respiratory panel negative. Mdm Developer and general surgery consulted. 09/07: No fevers since admission. Continue on antibiotic. 09/08: Afebrile. Heart rate in the high 50s to low 60s. Blood pressure in 100s to 110s 09/08: Mdm Developer note reviewed. Patient is being transferred out of ICU to PCU. 09/09: Sepsis resolved. 2. Acute hypoxic respiratory failure requiring Airvo Patient in respiratory distress, using CPAP for last 3 days continuously. Tachypnea. Initially on nonrebreather but then changed to Airvo. ABG reviewed. Initially 7.42/52.5/51 on high flow nasal cannula, 50%. Repeat ABG 7.46/50/64 on 70% high flow nasal cannula. Overall it is mixed acid-base disorder with metabolic alkalosis, bicarb 37 and respiratory acidosis. Elevated D-dimer possible infection/sepsis but when patient hemodynamically stable will need VQ scan 09/07: On 50% FiO2, mild tachypnea and respiratory rate 19 to 20/min. Nasal saline spray and fluticasone ordered 09/08: On 4 L of O2 through nasal cannula. Off Airvo 09/09: Patient has paroxysms of cough probably from chronic pulmonary disease/bronchiectasis. CT chest was initially reviewed and showed scattered patchy groundglass and reticular opacities with mild intralobular septal thickening with mild bronchiectasis. Mucinex DM and Tessalon Perles ordered ? 09/10/2023;Patient oxygen requirement improving currently on 3 L flow per minute plan is for patient to be assessed for home oxygen requirement prior to discharge 3. 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 PTH 5.3 low. TSH 0.78. It shows improvement of 14.9. Mdm Developer ordered calcitonin. 09/07: Calcium improved from 17.3-12.4. Patient had IV calcitonin yesterday. Hypomagnesemia, getting IV magnesium 09/08: Serum calcium is better 11.6 today. Patient has bilateral crepitation there. IV fluid discontinued 09/09: Serum calcium of 11.0. Genetic Engineer is following. 09/10/2024; patient HCTZ discontinued given the side effect of hypercalcemia 4. [place] - Patient admitted with BUN/creatinine 38/2.45. Baseline 21/0.95 in August 11. After decision. There is slight improvement 2.23. CT abdomen/pelvis did not reveal any suspected mass but moderate prostatomegaly. Avoid nephrotoxins. Consult nephrology. 09/07: Creatinine 1.92 improving. 09/08: BUNs/creatinine 37/1.85. Gradually improving. Genetic Engineer following. 09/09: BUN/creatinine 34/1.67. 5. Elevated troponin of 197 pg/mL present on admission -suspected to be due to Acute Cardiac Strain/demand ischemia from sepsis: Patient denies chest pain or pressure or tightness. Denies chronic cardiac conditions. Rectal aspirin was given. Furosemide was also given possible because of hypercalcemia 09/07: Echo is ordered 09/09: Echo shows EF 60% with mild MR and AI. No evidence of diastolic dysfunction. 6. BPH with lower urinary obstructive symptoms - Patient treated with tamsulosin. CT demonstrated moderate prostamegaly 7. Dyslipidemia ?Patient is on statin therapy, continued at home dose 8. Sigmoid diverticulitis - Patient was diagnosed advanced diverticular disease about 10 years ago after he had multiple bloody bowel movements and had colonoscopy. He opted not for surgery. Had self-limited multiple bloody bowel movement last year. Unclear whether there is a stricture/mass. Will need colonoscopy after 4 to 6-week. 09/08: Liquid diet. ? 09/11/2024 symptoms improved patient informed on the need to follow-up with primary care physician for patient to be referred to GI for outpatient: 9. Obstructive sleep apnea ? Patient is on CPAP at night 10. DVT prophylaxis Subcu heparin Time spent in the patient's overall evaluation,decision-making process, review of diagnostic data, adjustment of management, discussion with other providers, nursing nursing and ancillary staff involved in patient's care documentation, 36 Minutes Medications at Discharge Home Medications rosuvastatin 10 mg tablet 10 mg PO QHS 08/23/24 tamsulosin 0.4 mg capsule 0.8 mg PO QDAY 08/23/24 albuterol sulfate 90 mcg/actuation aerosol inhaler 2 puff inhalation Q6H PRN shortness of breath or wheezing #8.5 grams 09/01/24 levofloxacin 750 mg tablet 750 mg PO Q24H #10 tabs 09/01/24 acetaminophen 325 mg tablet 650 mg (2 x 325 mg) PO Q6H PRN PRN Pain 1-10 Or Fever #0 tabs 09/11/24 benzonatate 100 mg capsule 200 mg (2 x 100 mg) PO TID #30 caps 09/11/24 dextromethorphan-guaifenesin 30 mg-600 mg tablet extended [id number] hr (Mucinex DM) 2 tab PO BID #20 tabs 09/11/24 levofloxacin 750 mg tablet 750 mg PO DAILY #5 tabs 09/11/24 metronidazole 500 mg tablet 500 mg PO TID #15 tabs 09/11/24 pantoprazole 40 mg tablet,delayed release 40 mg PO DAILY #60 tabs 09/11/24 polyethylene glycol 3350 17 gram/dose oral powder (Miralax) 17 g PO DAILY #238 grams 09/11/24 potassium, sodium phosphates 280 mg-160 mg-250 mg oral powder packet 1 packet PO BID #60 ea 09/11/24 tamsulosin 0.4 mg capsule 0.4 mg PO BID #60 caps 09/11/24 Physical Exam Narrative GENERAL: cooperative, HEENT: Atraumatic; normocephalic EYES; Anicteric, Normal Conjunctiva NECK; supple, normal thyroid, RESPIRATORY: Diminished to auscultation CARDIOVASCULAR: Regular S1 S2, GI: soft, normoactive bowel sounds, : No Renal angle tenderness; EXTREMITIES: No edema, no clubbing, MUSCULOSKELETAL: no muscle wasting NEURO: Awake; no lateralizing signs. SKIN: No Rash PSYCH; Flat affect Weight / BMI Weight Weight: 86.3 kg Body Mass Index (BMI) 28.9 ABG / Lab / Microbiology Data 09/11/24 05:24 09/11/24 05:24 Laboratory: Laboratory Results - last 24 hr 09/11/24 05:24: WBC 6.2, RBC 3.82 L, Hgb 11.7 L, Hct 34.9 L, MCV 91.4, MCH 30.6, MCHC 33.5, RDW Std Deviation 41.1, RDW Coeff of Mahendra 12.3, Plt Count 289, MPV 9.2, Immature Gran % (Auto) 1.500 H, Neut % (Auto) 54.9, Lymph % (Auto) 17.6 L, [place] % (Auto) 14.2 H, Eos % (Auto) 10.8 H, Baso % (Auto) 1.0, Absolute Neuts (auto) 3.4, Absolute Lymphs (auto) 1.09, Nucleated RBC % 0, Sodium 137, Potassium 3.9, Chloride 105, Carbon Dioxide 29.0, Anion Gap 3 L, BUN 32 H, Creatinine 1.28, Estim Creat Clear Calc 54.93, Est GFR (MDRD) Af Amer 71, Est GFR (MDRD) Non-Af 59 L, BUN/Creatinine Ratio 25.0 H, Glucose 105, Calcium 9.7, Phosphorus 1.9 L, Magnesium 1.6 Microbiology: Microbiology 09/05/24 20:40 Blood Culture (Wb) - Left Wrist Blood Culture - Final No growth in 5 days. 09/05/24 20:30 Blood Culture (Wb) - Anticubital Left Blood Culture - Final No growth in 5 days. 09/06/24 12:13 Sputum, Expectorated/Coughed Gram Stain - Final 09/06/24 12:13 Sputum, Expectorated/Coughed Respiratory Culture - Final Mixed normal respiratory miranda. No Streptococcus pneumoniae, beta-hemolytic Streptococcus or Staphylococcus aureus isolated. 09/07/24 10:51 Nasal Secretion MRSA (PCR) - Final 09/06/24 01:15 Mucosa - Nasopharyngeal Respiratory Panel (PCR) - Final 09/05/24 20:29 Mucosa - Nose SARS-CoV-2, Influenza & RSV (PCR) - Final D/C Instructions Discharge Diet: No restrictions Discharge Activity: Return to Normal Activity Call your doctor if you observe: Fever of 101 or Higher, Shortness of breath, Fainting spells and Chest pain DC O2, CPAP, BIPAP Needs RN Home O2 Qualification: Home O2 Qualification: Is the patient on home oxygen No 09/11/24 11:32 Home O2 Qualification: AT REST 1- Pulse Ox at rest 94 09/11/24 11:32 Home O2 Qualification: WITH AMBULATION 1- Pulse Ox with ambulation 88 09/11/24 11:32 1- Oxygen Flow Rate with 0 09/11/24 11:32 ambulation 2- Pulse Ox with ambulation 90 09/11/24 11:32 2- Oxygen Flow Rate with 2 09/11/24 11:32 ambulation PSN CPAP & BiPAP: BiPAP & CPAP Settings per PSN Mode AIRVO 09/07/24 14:15 Bipap Delivery Device Nasal Pillows 09/07/24 14:15 Fraction of Inspired Oxygen ( 35 09/07/24 14:15 FIO2) Total Flow Rate 50 09/07/24 14:15 Home O2 Discharge instructions: Yes Type of respiratory needs?: Oxygen Oxygen frequency: With Ambulation (2L) Oxygen liters per minute during Ambulation: 2l DC home with Oxygen: Yes Home O2 MD Review: I have reviewed the oxygen testing, and the patient qualifies for home oxygen equipment and portability. The patient is mobile in the home and the community. Meaningful Use Info Meaningful Use Meaningful Use Diagnoses (Choose all that apply): None applicable Ischemic Stroke Statin Dosing Therapy Reference: STATIN DOSE THERAPY REFERENCE: * Patients > 75 years receive moderate or high dose statin therapy. * Patients 75 years or YOUNGER should receive HIGH intensity statin dose unless contraindicated. You will be required to document reason for non-treatment if statin daily dose does not meet guidelines. HIGH DOSE STATIN THERAPY DAILY Atorvastatin > than or = to 40 mg Rosuvastatin > than or = to 20 mg Amlodipine + Atorvastatin > than or = to 2.5/40 mg Ezetimibe + Simvastatin 10/80 mg Simvastatin 80mg Discharge Plan Admission Admit Date/Time: 09/05/24 23:59 Attending Provider: Gio Garcia Primary Care Provider: Efrem Chapman Consulting Providers: Gio Pool; Junior Bae; Yeimy Johnson; Miguel Washington Discharge Orders/Prescriptions Prescriptions: New benzonatate 100 mg Capsule 200 mg PO TID Qty: 30 0RF tamsulosin 0.4 mg Capsule 0.4 mg PO BID Qty: 60 0RF pantoprazole 40 mg Tablet,Delayed Release (Dr/Ec) 40 mg PO DAILY Qty: 60 0RF Mucinex DM 30-600 mg Tablet Extended Release 12 Hr 2 tab PO BID Qty: 20 0RF acetaminophen 325 mg Tablet 650 mg PO Q6H PRN PRN (Reason: Pain 1-10 Or Fever) Qty: 0 0RF levofloxacin 750 mg tablet 750 mg PO DAILY Qty: 5 0RF metronidazole 500 mg tablet 500 mg PO TID Qty: 15 0RF polyethylene glycol 3350 [Miralax] 17 gram/dose powder 17 g PO DAILY Qty: 238 0RF potassium, sodium phosphates 280-160-250 mg Powder In Packet 1 packet PO BID Qty: 60 0RF Continued rosuvastatin 10 mg tablet 10 mg PO QHS tamsulosin 0.4 mg capsule 0.8 mg PO QDAY albuterol sulfate 90 mcg/actuation HFA aerosol inhaler 2 puff inhalation Q6H PRN (Reason: shortness of breath or wheezing) Qty: 8.5 0RF levofloxacin 750 mg tablet 750 mg PO Q24H Qty: 10 0RF Discontinued triamterene-hydrochlorothiazid 75-50 mg tablet 0.5 tab PO DAILY Referrals / Follow Up: Cory Barrera MD [Med Staff - Active Staff] - Within 1 Month (For hypercalcemia, rule out secondary to malignancy) Efrem Chapman MD [Primary Care Provider] - Cedric Alamo DO [Med Staff - Active Staff] - Within 1 Month (For outpatient colonoscopy) Disposition Disposition (needs filled in before D/C Order can be placed): Home, Self Care Charges/Coding Visit Charges Inpatient E&M: 57565 Disch Hosp >30min
[2024-09-11] MEDS: Meropenem 1 GM in 0.9% Normal Saline (100mL MB+) 100 ML IV (10:41)
[2024-09-11 11:32] VITALS: O2SAT 88; O2SAT 90; O2SAT 94
--- NOTE | 2024-09-11 11:57 | CASEMGMT ---
Patient has order for discharge. Patient requires home oxygen at discharge. HANK ALEXIS in to review DME preferences with patient, at bedside. Patient states he would like [employer] now after reviewing DME agencies again. Patient denies need for walker at discharge. Chantelle declines HHC or outpatient therapy. request recommendation for exercises at home, therapy notified. Patient and deny further needs or help at discharge. HANK ALEXIS received script for home oxygen. Referral sent to [facility] via [facility] and requested tank to be delivered to room. HANK ALEXIS updated discharge plan.
[2024-09-11] MEDS: Na Biphos/Potassium Phosphate PACKET 1 PACKET PO (11:59)
--- NOTE | 2024-09-11 16:07 | PN.RENAL_ITS ---
Subjective Subjective no new complaints Objective Data Objective Data Vital Signs: Vital Signs Temp Pulse Resp BP Pulse Ox O2 Del Method O2 Flow Rate 97.9 F 60 18 123/73 H 97 Nasal Cannula 2 09/11/24 10:20 09/11/24 10:20 09/11/24 10:20 09/11/24 10:20 09/11/24 10:20 09/11/24 10:20 09/11/24 10:20 FiO2 35 09/07/24 14:15 Oxygen Flow Rate (L/min) 2 Oxygen Delivery Method Nasal Cannula Weight: 86.3 kg Body Mass Index (BMI) 28.9 Intake & Output: Intake and Output for Last 24 Hours 09/09/24 09/10/24 09/11/24 23:59 23:59 23:59 Intake Total 240 / 440 640 / 640 120 / 120 Output Total 600 / 1000 400 / 400 Balance -360 / -560 240 / 240 120 / 120 Lab / Micro Data 09/11/24 05:24 09/11/24 05:24 Labs: Laboratory Results - last 24 hr 09/11/24 05:24: WBC 6.2, RBC 3.82 L, Hgb 11.7 L, Hct 34.9 L, MCV 91.4, MCH 30.6, MCHC 33.5, RDW Std Deviation 41.1, RDW Coeff of Mahendra 12.3, Plt Count 289, MPV 9.2, Immature Gran % (Auto) 1.500 H, Neut % (Auto) 54.9, Lymph % (Auto) 17.6 L, [place] % (Auto) 14.2 H, Eos % (Auto) 10.8 H, Baso % (Auto) 1.0, Absolute Neuts (auto) 3.4, Absolute Lymphs (auto) 1.09, Nucleated RBC % 0, Sodium 137, Potassium 3.9, Chloride 105, Carbon Dioxide 29.0, Anion Gap 3 L, BUN 32 H, Creatinine 1.28, Estim Creat Clear Calc 54.93, Est GFR (MDRD) Af Amer 71, Est GFR (MDRD) Non-Af 59 L, BUN/Creatinine Ratio 25.0 H, Glucose 105, Calcium 9.7, P hosphorus 1.9 L, Magnesium 1.6 Micro: Microbiology 09/05/24 20:40 Blood Culture (Wb) - Left Wrist Blood Culture - Final No growth in 5 days. 09/05/24 20:30 Blood Culture (Wb) - Anticubital Left Blood Culture - Final No growth in 5 days. 09/06/24 12:13 Sputum, Expectorated/Coughed Gram Stain - Final 09/06/24 12:13 Sputum, Expectorated/Coughed Respiratory Culture - Final Mixed normal respiratory miranda. No Streptococcus pneumoniae, beta-hemolytic Streptococcus or Staphylococcus aureus isolated. 09/07/24 10:51 Nasal Secretion MRSA (PCR) - Final 09/06/24 01:15 Mucosa - Nasopharyngeal Respiratory Panel (PCR) - Final 09/05/24 20:29 Mucosa - Nose SARS-CoV-2, Influenza & RSV (PCR) - Final Rhythm Strip Rhythm Strip: Sinus Rhythm Rate: 88 Ectopy: PVC(s) Physical Exam Narrative Alert, oriented x 3, no apparent distress S1, S2, RRR Lung sounds clear anteriorly Abdomen soft, nontender No edema Assessment & Plan Assessment/Plan (1) Hypercalcemia: (2) Acute kidney injury: (3) Acute hypoxemic respiratory failure: (4) Acute diverticulitis: PLAN: Plan This is a 74-year-old male with past medical history significant for hypertension, HLD, ANA on CPAP, BPH, OA, history of diverticulitis and lower GI bleed with partial colectomy. Admitted for acute hypoxemic respiratory failure, pneumonia, hypercalcemia, [place]. Nephrology consulted in view of hypercalcemia and [place]. On admission (09/05) calcium was 17.3, and creatinine 2.45. -Hypercalcemia; calcium 17.3 on admission --> normal today PTH appropriately supressed CT chest no malignancy CT abd. diverticulitis vs malignancy. outpatient C scope 4 weeks as per surgery SPEP - faint band. ordered kappa/lambda LC assay. cr is normal he was using large doses of TUMS upto 16 a day for acid reflux avoid those for now will arrange follow up after dc
[2024-09-11 16:08] LABS: Free Kappa Light Chains 136.7 mg/L (3.3-19.4); Free Lambda Light Chains 46.7 mg/L (5.7-26.3)
== END 2024-09-11 14:01 | disposition home or self-care (01) | DRG 871 ==
LOC: ED 21:33 → ICU 09-06 00:26 → PCU 09-09 10:02 → ICU 09-10 07:26
PROVIDERS: Internal Medicine; Nurse Practitioner; Nurse Practitioner Adult Health; Physician Assistant; Admitting Provider Internal Medicine; Emergency Provider Emergency Medicine; PCP Family Medicine; Visit Provider Internal Medicine
DX: A41.9 Sepsis, unspecified organism (principal); J96.01 Acute respiratory failure with hypoxia; J18.9 Pneumonia, unspecified organism; E87.20 Acidosis, unspecified; E87.3 Alkalosis; J47.0 Bronchiectasis with acute lower respiratory infection; E87.4 Mixed disorder of acid-base balance; N17.9 Acute kidney failure, unspecified; K57.32 Diverticulitis of large intestine without perforation or abscess without bleeding; N13.8 Other obstructive and reflux uropathy; I10 Essential (primary) hypertension; E78.5 Hyperlipidemia, unspecified; E83.52 Hypercalcemia; G47.33 Obstructive sleep apnea (adult) (pediatric); I25.10 Atherosclerotic heart disease of native coronary artery without angina pectoris; E87.6 Hypokalemia; R65.20 Severe sepsis without septic shock; D72.829 Elevated white blood cell count, unspecified; M19.90 Unspecified osteoarthritis, unspecified site; R79.89 Other specified abnormal findings of blood chemistry; E66.3 Overweight; Z68.27 Body mass index [BMI] 27.0-27.9, adult; Z87.891 Personal history of nicotine dependence; N40.1 Benign prostatic hyperplasia with lower urinary tract symptoms; Z99.89 Dependence on other enabling machines and devices; Z79.899 Other long term (current) drug therapy
CPT/HCPCS: 36415; 36600; 71045; 71250; 74176; 80048; 80053; 80061; 82803; 83605; 83735; 83880; 83883; 83970; 84100; 84165; 84166; 84443; 84484; 85025; 85379; 87040; 87070; 87205; 87631; 87633; 87641; 93005; 93306; 94640; 94660; 94668; 94762; 97116; 97162; 97166; 97530; 97535; 99285; J2185; A4216; J0630; J1940; J2405; J2430

== ENCOUNTER → 2024-09-25 | Outpatient (CLI) | payer MEDICARE, SELFPAY ==
--- NOTE | 2024-09-25 09:30 | RAD_ITS ---
EXAM: XR Right Foot Complete, 3 or More Views CLINICAL INDICATION: TECHNIQUE: Frontal, lateral and oblique views of the right foot. COMPARISON: No relevant prior studies available. FINDINGS: BONES/JOINTS: See below. SOFT TISSUES: Soft tissue swelling without acute fracture. No radiopaque foreign body. RAD/Foot min 3 Views IMPRESSION: 1. Soft tissue swelling without acute fracture. 2. If symptoms persist, repeat radiograph in 7-10 days recommended. Reading Location: [facility], [id number]
== END | disposition home or self-care (01) ==
LOC: MTRAD 09:21
PROVIDERS: PCP Family Medicine; Referring Provider Family Medicine; Visit Provider Family Medicine
DX: M79.671 Pain in right foot (principal)
CPT/HCPCS: 73630

== ENCOUNTER → 2024-09-30 | Outpatient (CLI) | payer MEDICARE, SELFPAY ==
[2024-09-30 13:02] LABS: Absolute Lymphocyte Count 1.05 X10^3/uL (0.83-4.51); Absolute Neutrophil Count 2.9 X10^3/uL (2.0-7.7); Basophil# 0.02 X10^3/uL; Basophil% 0.4 % (0-1); Eosinophil# 0.52 X10^3/uL; Eosinophils% 10.6 % (0-5); Hematocrit 39.9 % (40-54); Hemoglobin 12.7 g/dL (13.0-16.5); Lymphocyte # 1.05 X10^3/ul (0.83-4.51); Lymphocyte % 21.5 % (19-41); Mean Corp Hgb Conc 31.8 g/dL (32-36); Mean Corpuscular Hgb 29.5 pg (27.0-32.0); Mean Corpuscular Volume 92.6 fL (80-94); Monocyte# 0.41 X10^3/uL; Monocyte% 8.4 % (0-10); NRBC Flagged by Analyzer 0 % (0-5); Neutrophil # 2.88 X10^3/uL (2.7-7.7); Neutrophil % 58.9 % (47-70); Platelet Count 194 K/mm3 (150-450); RBC Distribution Width CV 13.3 % (11.6-14.6); RBC Distribution Width SD 45.7 fl (35.1-43.9); Red Blood Count 4.31 M/mm3 (4.6-6.2); White Blood Count 4.9 K/mm3 (4.4-11.0)
[2024-09-30 13:15] LABS: ALB/GLOB Ratio 0.6 RATIO (0.9-2.4); AST(SGOT) 35 U/L (15-37); Alanine Aminotransfer ALT/SGPT 46 U/L (16-61); Albumin, Serum 3.2 g/dL (3.2-5.0); Alkaline Phosphatase 72 U/L (45-117); Anion Gap 6 (5-15); BUN 13 mg/dL (7-18); BUN/Creat Ratio 12.3 RATIO (10-20); Calcium,Total 8.7 mg/dL (8.5-10.1); Chloride 107 mmol/L (98-107); Creatinine, Serum 1.06 mg/dL (0.70-1.30); EST Glomerular Filtration Rate 73 mL/min (>60); Est Glom Filt Rate - Afr Amer 88 mL/min (>60); Glucose 82 mg/dL (74-106); Potassium 3.9 mmol/L (3.5-5.1); Protein, Total 8.2 g/dL (6.4-8.2); Sodium Level 138 mmol/L (136-145)
[2024-09-30 13:57] LABS: AST(SGOT) 35 U/L (15-37); Alanine Aminotransfer ALT/SGPT 49 U/L (16-61); Albumin, Serum 3.1 g/dL (3.2-5.0); Alkaline Phosphatase 73 U/L (45-117); Bilirubin, Direct 0.13 mg/dL (0.00-0.30); Globulin 5.1 g/dL (2.2-4.2); Phosphorus 3.1 mg/dL (2.5-4.9); Protein, Total 8.2 g/dL (6.4-8.2)
[2024-10-03 10:08] LABS: QNTFERON TB Mitogen Value > 10.00 IU/mL (.); QNTFERON TB Nil Value 0.17 IU/mL (.); QNTFERON TB1+ Ag Value 0.11 IU/mL (.); QNTFERON TB2+ Ag Value 0.19 IU/mL (.); QNTIFERON TB Positive Criteria Negative (Negative)
== END | disposition home or self-care (01) ==
LOC: MFPLAB 10:05
PROVIDERS: Family Medicine; PCP Family Medicine; Referring Provider Dermatology; Visit Provider Family Medicine
DX: Z79.899 Other long term (current) drug therapy (principal)
CPT/HCPCS: 36415; 80053; 80076; 84100; 85025; 86480

== ENCOUNTER → 2024-10-01 | Outpatient (CLI) | payer MEDICARE, SELFPAY ==
--- NOTE | 2024-10-01 10:08 | US_ITS ---
PROCEDURE: ABDOMEN LIMITED REASON FOR EXAM: Hepatic cysts seen on recent CT scan. COMPARISON: Comparison is made with prior CT scan of the abdomen and pelvis dated September 05, 2024. FINDINGS: Liver: Grossly normal size and echotexture. Several cysts are seen. There is a 2.1 cm x 2.4 cm x 2 cm cyst in the medial left lobe as well as a 1 cm x 1 cm x 0.8 cm cyst in the superior aspect of the left lobe of the liver. There is also evidence of a 1.8 cm x 1.3 cm 1.8 cm cyst in the midportion of the right lobe. Gallbladder: Moderate amount of sludge is seen in the gallbladder. There is evidence of a 4 mm x 4 mm x 3 mm gallbladder polyp. Common bile duct: Normal measuring it measures 4 mm.. Pancreas: Visualized portions are sonographically unremarkable. Visualized portions of the right kidney are unremarkable. No right upper quadrant ascites. US/Abdomen Limited IMPRESSION: Sludge is seen in the gallbladder lumen. 4 mm x 3 mm x 4 mm gallbladder polyp. Cysts in the right lobe of the liver and left lobe of the liver as described. Reading Location: [place] [id number]
== END | disposition home or self-care (01) ==
LOC: US 10:07
PROVIDERS: PCP Family Medicine; Referring Provider Nurse Practitioner Acute Care; Visit Provider Nurse Practitioner Acute Care
DX: K76.89 Other specified diseases of liver (principal)
CPT/HCPCS: 76705

== ENCOUNTER → 2024-10-29 | Outpatient (CLI) | payer MEDICARE, SELFPAY ==
[2024-10-29 15:39] LABS: AST(SGOT) 30 U/L (<=37); Alanine Aminotransfer ALT/SGPT 31 U/L (<=46); Albumin, Serum 3.9 g/dL (3.4-4.8); Alkaline Phosphatase 58 U/L (40-129); Anion Gap 11 (5-15); BUN 20 mg/dL (4-19); BUN/Creat Ratio 16.3 RATIO (10-20); Bilirubin, Direct 0.14 mg/dL (0.00-0.30); Calcium,Total 9.1 mg/dL (7.6-11.0); Carbon Dioxide 23.7 mmol/L (21.0-32.0); Chloride 104 mmol/L (98-108); Creatinine, Serum 1.23 mg/dL (0.70-1.20); EST Glomerular Filtration Rate 62 (>60); Globulin 3.8 g/dL (2.2-4.2); Glucose 93 mg/dL (70-99); Potassium 3.8 mmol/L (3.3-5.1); Protein, Total 7.7 g/dL (5.9-8.4); Sodium Level 139 mmol/L (133-145)
[2024-10-29 17:41] LABS: Absolute Lymphocyte Count 1.22 X10^3/uL (0.83-4.51); Basophil# 0.05 X10^3/uL; Basophil% 0.8 % (0-1); Eosinophil# 0.15 X10^3/uL; Eosinophils% 2.5 % (0-5); Hemoglobin 12.1 g/dL (13.0-16.5); Lymphocyte # 1.22 X10^3/ul (0.83-4.51); Lymphocyte % 20.5 % (19-41); Mean Corp Hgb Conc 32.7 g/dL (32-36); Mean Corpuscular Hgb 29.4 pg (27.0-32.0); Monocyte# 0.57 X10^3/uL; Monocyte% 9.6 % (0-10); NRBC Flagged by Analyzer 0 % (0-5); Neutrophil # 3.95 X10^3/uL (2.7-7.7); Neutrophil % 66.3 % (47-70); Platelet Count 249 K/mm3 (150-450); RBC Distribution Width CV 13.9 % (11.6-14.6); RBC Distribution Width SD 45.8 fl (35.1-43.9); Red Blood Count 4.11 M/mm3 (4.6-6.2)
[2024-10-31 13:08] LABS: QNTFERON TB Mitogen Value > 10.00 IU/mL (.); QNTFERON TB Nil Value 0.09 IU/mL (.); QNTFERON TB1+ Ag Value 0.09 IU/mL (.); QNTIFERON TB Positive Criteria Negative (Negative)
== END | disposition home or self-care (01) ==
LOC: MTLAB 11-02 11:45
PROVIDERS: PCP Family Medicine; Referring Provider Internal Medicine Nephrology; Visit Provider Internal Medicine Nephrology
DX: N17.9 Acute kidney failure, unspecified (principal); Z79.899 Other long term (current) drug therapy
CPT/HCPCS: 36415; 80048; 80076; 85025; 86480

== ENCOUNTER 2025-01-19 08:09 | Outpatient (CLI) | payer MEDICARE, SELFPAY ==
[2025-01-19 08:11] LABS: Bacteria 0 SEEN /hpf (None Seen); Mucous, Urine 0 SEEN /hpf (<or=2+); Red Blood Cells-Urine 0 SEEN /hpf (0-5); Squamous Epithelial Cells - UA 0 SEEN /hpf (0-5); White Blood Cells 0 SEEN /hpf (0-5)
[2025-01-19 10:09] LABS: Absolute Lymphocyte Count 0.92 X10^3/uL (0.83-4.51); Absolute Neutrophil Count 2.3 X10^3/uL (2.0-7.7); Basophil# 0.03 X10^3/uL; Basophil% 0.8 % (0-1); Eosinophil# 0.17 X10^3/uL; Eosinophils% 4.5 % (0-5); Hematocrit 40.2 % (40-54); Hemoglobin 13.2 g/dL (13.0-16.5); Lymphocyte # 0.92 X10^3/ul (0.83-4.51); Lymphocyte % 24.4 % (19-41); Mean Corp Hgb Conc 32.8 g/dL (32-36); Mean Corpuscular Hgb 30.3 pg (27.0-32.0); Mean Corpuscular Volume 92.2 fL (80-94); Mean Platelet Vol. 10.1 fl (6.2-12.0); Monocyte# 0.37 X10^3/uL; Monocyte% 9.8 % (0-10); NRBC Flagged by Analyzer 0 % (0-5); Neutrophil # 2.27 X10^3/uL (2.7-7.7); Neutrophil % 60.2 % (47-70); Platelet Count 236 K/mm3 (150-450); RBC Distribution Width CV 13.9 % (11.6-14.6); RBC Distribution Width SD 47.2 fl (35.1-43.9); Red Blood Count 4.36 M/mm3 (4.6-6.2); White Blood Count 3.8 K/mm3 (4.4-11.0)
[2025-01-19 10:19] LABS: Color, Urine Yellow (Yellow); Glucose, Dipstick Normal (Normal); Ketone-Dipstick Negative (Negative); Leukocyte Esterase-Dipstick Negative /ul (Negative); Nitrite-Dipstick Negative (Negative); Occult Blood-Urine Negative /ul (Negative); Protein-Dipstick Negative (Negative); Urine Bilirubin Dipstick Negative (Negative); Urine Clarity Clear (Clear); Urine Urobilinogen Normal (Normal)
[2025-01-19 11:19] LABS: ALB/GLOB Ratio 1.2 RATIO (0.9-2.4); AST(SGOT) 30 U/L (<=37); Alanine Aminotransfer ALT/SGPT 25 U/L (<=46); Albumin, Serum 4.3 g/dL (3.4-4.8); Alkaline Phosphatase 58 U/L (40-129); Anion Gap 11 (5-15); BUN 22 mg/dL (4-19); BUN/Creat Ratio 24.3 RATIO (10-20); Calcium,Total 9.3 mg/dL (7.6-11.0); Carbon Dioxide 23.3 mmol/L (21.0-32.0); Chloride 106 mmol/L (98-108); Cholesterol 137 mg/dL (<=200); Creatinine, Serum 0.89 mg/dL (0.70-1.20); EST Glomerular Filtration Rate 91 (>60); Globulin 3.4 g/dL (2.2-4.2); Glucose 94 mg/dL (70-99); High Density Lipoprotein 57 mg/dL; Low Density Lipoprotein Calc. 71 mg/dL; Magnesium 2.1 mg/dL (1.5-2.2); Potassium 3.8 mmol/L (3.3-5.1); Protein, Total 7.7 g/dL (5.9-8.4); Sodium Level 140 mmol/L (133-145); Triglycerides 47 mg/dL; Very Low Density Lipoprotein 9 mg/dL (5-40); Vitamin D,25 Hydroxy 29.8 ng/mL (30-100); cholesterol:hdl ratio screen 2.42
== END 2025-01-19 23:59 | disposition home or self-care (01) ==
LOC: MFPLAB 08:09
PROVIDERS: PCP Family Medicine; Referring Provider Family Medicine; Visit Provider Family Medicine
DX: E78.5 Hyperlipidemia, unspecified (principal); I10 Essential (primary) hypertension; E55.9 Vitamin D deficiency, unspecified
CPT/HCPCS: 36415; 80053; 80061; 81001; 82306; 83735; 85025

== ENCOUNTER → 2025-01-26 | Outpatient (CLI) | payer MEDICARE, SELFPAY ==
[2025-01-26 20:34] LABS: PSA,Total - Annual Screen 2.53 ng/mL (0.02-4.00)
== END | disposition home or self-care (01) ==
LOC: MTLAB 14:12
PROVIDERS: PCP Family Medicine
DX: Z12.5 Encounter for screening for malignant neoplasm of prostate (principal)
CPT/HCPCS: 36415; 84153; G0103

== ENCOUNTER → 2025-07-28 | Outpatient (CLI) | payer MEDICARE, SELFPAY ==
[2025-07-28 13:55] LABS: Mucous, Urine 0 SEEN /hpf (<or=2+)
[2025-07-28 15:25] LABS: Hematocrit 41.1 % (40-54); Hemoglobin 13.5 g/dL (13.0-16.5); Immature Granulocytes Count 0.010 X10^3/uL (0.0-0.0); Mean Corp Hgb Conc 32.8 g/dL (32-36); Mean Corpuscular Volume 93.2 fL (80-94); Mean Platelet Vol. 10.2 fl (6.2-12.0); NRBC Flagged by Analyzer 0 % (0-5); Platelet Count 237 K/mm3 (150-450); RBC Distribution Width CV 12.7 % (11.6-14.6); RBC Distribution Width SD 43.4 fl (35.1-43.9); Red Blood Count 4.41 M/mm3 (4.6-6.2); White Blood Count 5.6 K/mm3 (4.4-11.0)
[2025-07-28 15:26] LABS: Color, Urine Yellow (Yellow); Glucose, Dipstick Normal (Normal); Ketone-Dipstick Negative (Negative); Leukocyte Esterase-Dipstick Negative /ul (Negative); Nitrite-Dipstick Negative (Negative); Occult Blood-Urine Negative /ul (Negative); Protein-Dipstick Negative (Negative); Specific Gravity, Urine 1.010 (1.002-1.030); Urine Bilirubin Dipstick Negative (Negative)
[2025-07-28 15:57] LABS: AST(SGOT) 21 U/L (<=37); Alanine Aminotransfer ALT/SGPT 18 U/L (<=46); Albumin, Serum 4.0 g/dL (3.4-4.8); Alkaline Phosphatase 63 U/L (40-129); Anion Gap 11 (5-15); BUN 22 mg/dL (4-19); BUN/Creat Ratio 22.4 RATIO (10-20); Calcium,Total 9.2 mg/dL (7.6-11.0); Carbon Dioxide 25.2 mmol/L (21.0-32.0); Chloride 104 mmol/L (98-108); Cholesterol 117 mg/dL (<=200); Globulin 3.2 g/dL (2.2-4.2); Glucose 93 mg/dL (70-99); Low Density Lipoprotein Calc. 49 mg/dL; Magnesium 2.0 mg/dL (1.5-2.2); Potassium 3.9 mmol/L (3.3-5.1); Triglycerides 167 mg/dL; Very Low Density Lipoprotein 33 mg/dL (5-40); Vitamin D,25 Hydroxy 29.2 ng/mL (30-100); cholesterol:hdl ratio screen 2.90
[2025-07-28 16:46] LABS: Red Blood Cells-Urine 0-5 SEEN /hpf (0-5); Squamous Epithelial Cells - UA 0-5 SEEN /hpf (0-5)
[2025-07-30 15:09] LABS: PROEL- A/G Ratio 1.2 (0.7-1.7); PROEL- Albumin 3.8 g/dL (2.9-4.4); PROEL- Alpha-1 Globulin 0.2 g/dL (0.0-0.4); PROEL- Alpha-2 Globulin 0.6 g/dL (0.4-1.0); PROEL- Beta Globulin 0.9 g/dL (0.7-1.3); PROEL- Gamma Globulin 1.4 g/dL (0.4-1.8); PROEL- Globulin, Total 3.2 g/dL (2.2-3.9); PROEL- TOTAL PROTEIN 7.0 g/dL (6.0-8.5); PROEL-M-Spike Not Observed g/dL (Not Observed)
== END | disposition home or self-care (01) ==
PROVIDERS: PCP Family Medicine; Referring Provider Family Medicine; Visit Provider Family Medicine
DX: E55.9 Vitamin D deficiency, unspecified (principal); E88.09 Other disorders of plasma-protein metabolism, not elsewhere classified; I10 Essential (primary) hypertension; E78.5 Hyperlipidemia, unspecified
CPT/HCPCS: 36415; 80053; 80061; 81001; 82306; 83735; 84165; 85025